=== PATIENT | male | born 1950 | race Caucasian/White ===

== ENCOUNTER 2021-03-25 06:53 | Inpatient (IN) | payer MEDICARE, OTHER ==
[2021-03-25] MEDS ORDERED: NITROGLYCERIN OINT 1 INCH/GM PACKET TOPICAL STA (07:27)
[2021-03-25] MEDS ORDERED: SODIUM CHLORIDE 0.9% 500 ML 500 ML IV STA (07:27)
[2021-03-25] MEDS ORDERED: ASPIRIN 81 MG PO STA (07:27)
[2021-03-25] MEDS ORDERED: NITROGLYCERIN SL TABS 0.4 MG TAB SUBLINGUAL STA (07:27)
[2021-03-25] MEDS ORDERED: SODIUM CHLORIDE 0.9% 500 ML 500 ML IV ONE (07:43)
[2021-03-25 07:45] LABS: Basophils % (A) 0 %; Eosinophils # (A) 0.1 k/uL (0-0.7); Eosinophils % (A) 1 %; HCT 43.9 % (39.0-53.0); Lymphocytes # (A) 1.7 k/uL (1.0-4.8); Lymphocytes % (A) 13 %; MCH 32.1 pg (25.0-35.0); MCHC 34.2 g/dL (31.0-37.0); MCV 93.9 fL (80.0-100.0); Mean Platelet Volume 6.7; Monocytes # (A) 0.6 k/uL (0-1.0); Monocytes % (A) 5 %; Neutrophils # (A) 10.4 k/uL (1.3-7.7); Neutrophils % (A) 81 %; Platelet Count 236 k/uL (150-450); RBC 4.67 m/uL (4.30-5.90); RDW 12.8 % (11.5-15.5); WBC 12.9 k/uL (3.8-10.6)
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
[2021-03-25 07:55] LABS: ALT 27 U/L (4-49); AST 33 U/L (17-59); African American GFR (CKD) >90 (>60 ml/min/1.73 sqM); Albumin 4.2 g/dL (3.5-5.0); Alkaline Phosphatase 70 U/L (38-126); Anion Gap 9 mmol/L; Blood Urea Nitrogen 10 mg/dL (9-20); Calcium 9.6 mg/dL (8.4-10.2); Carbon Dioxide 27 mmol/L (22-30); Chloride 100 mmol/L (98-107); Glucose 133 mg/dL (74-99); Magnesium 1.5 mg/dL (1.6-2.3); Non-African American GFR(CKD) 87 (>60 ml/min/1.73 sqM); Potassium 3.5 mmol/L (3.5-5.1); Sodium 136 mmol/L (137-145); Total Protein 6.9 g/dL (6.3-8.2)
[2021-03-25 07:57] LABS: D-Dimer 0.27 mg/L FEU (<0.60); Partial Thromboplastin Time 24.4 sec (22.0-30.0); Prothrombin Time 10.6 sec (9.0-12.0)
[2021-03-25] MEDS ORDERED: HEPARIN SODIUM 1,000 UN/ML (10ML VL) IV ONE ×2 (08:08→11:52)
[2021-03-25] MEDS ORDERED: HEPARIN SOD,PORK IN 0.45% NACL 25,000 UNIT in 0.45% NACL 1 250ML.BAG IV SCH (08:15)
--- NOTE | 2021-03-25 08:42 | XR ---
EXAMINATION TYPE: XR chest 2V DATE OF EXAM: 03/25/2021 COMPARISON: NONE HISTORY: Chest pain, cough and congestion TECHNIQUE: Frontal and lateral views of the chest are obtained. FINDINGS: There is some minimal blunting of the posterior costophrenic angles. Interstitium is incre ased. Heart size is increased. No evident pneumothorax. There are coronary artery calcifications. IMPRESSION: Correlate for pulmonary venous hypertension and interstitial edema, small pleural effusi ons. Cardiomegaly and coronary artery disease.
[2021-03-25] MEDS ORDERED: FUROSEMIDE 10 MG/ML 2 ML VIAL IV STA (08:47)
[2021-03-25] MEDS ORDERED: NITROGLYCERIN SL TABS 0.4 MG TAB SUBLINGUAL PRN ×2 (09:05→13:06)
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
--- NOTE | 2021-03-25 09:47 | P.PN ---
Progress Note - Text Progress Note Date: 03/25/21 Today, I had a prolonged discussion with the patient and his brother about goals of care and left heart catheterization. Patient was hesitant initially and refused left heart catheterization but then after further discussion with him and answering a lot of his questions he was more agreeable. He said that he would prefer the wrist approach. I told him that the cosmetic consultant will discuss this further with him. We also discussed goals of care and CODE STATUS. I explained to the patient the meaning of cardiac resuscitation. I answered some of his questions. He told me that he would like to be resuscitated but he would never wants to be kept on machines. We agreed to keep his CODE STATUS as a full code at this time. Time spent >16 minutes
[2021-03-25] MEDS: MORPHINE SULFATE 2 MG/ML SYRINGE IVP PRN ×4 (09:59→22:08)
[2021-03-25] MEDS: ATORVASTATIN 80 MG TAB PO SCH (10:00)
[2021-03-25] MEDS: METOPROLOL TARTRATE 25 MG TAB PO SCH ×2 (10:02→20:09)
[2021-03-25] MEDS: NITROGLYCERIN OINT 1 INCH/GM PACKET TOPICAL SCH ×2 (10:21→19:00)
[2021-03-25] MEDS ORDERED: LIDOCAINE 1% INJ 10MG/ML (20 ML MDV) ONE (11:05)
[2021-03-25] MEDS ORDERED: fentaNYL (PF) 50 MCG/ML 2 ML AMP ONE (11:14)
[2021-03-25] MEDS: MIDAZOLAM 2 MG/2 ML VIAL IV ONE ×2 (11:28→12:58)
[2021-03-25] MEDS ORDERED: fentaNYL (PF) 50 MCG/ML 2 ML AMP IV ONE (11:28)
[2021-03-25] MEDS ORDERED: LIDOCAINE 1% INJ 10MG/ML (20 ML MDV) SQ ONE (11:30)
[2021-03-25] MEDS ORDERED: IV FLUID CONTINUATION 500 ML IV ONE (11:36)
[2021-03-25] MEDS ORDERED: HEPARIN SODIUM 1,000 UN/ML (10ML VL) ONE (11:44)
[2021-03-25] MEDS ORDERED: TICAGRELOR 90 MG TAB ONE (11:54)
[2021-03-25] MEDS ORDERED: TICAGRELOR 90 MG TAB PO ONE (11:58)
[2021-03-25] MEDS ORDERED: IOPAMIDOL-370 125ML BTL INJ ONE ×2 (12:12→12:39)
[2021-03-25] MEDS ORDERED: NITROGLYCERIN 1000MCG/10ML SYRINGE INTRACORON ONE (12:17)
[2021-03-25] MEDS ORDERED: FUROSEMIDE 10 MG/ML 4 ML VIAL ONE (12:18)
[2021-03-25] MEDS ORDERED: FUROSEMIDE 10 MG/ML 4 ML VIAL IV ONE (12:20)
--- NOTE | 2021-03-25 12:42 | CONS ---
CONSULTATION HISTORY OF PRESENT ILLNESS: Layton is a 70-year-old gentleman with history of hypertension who presented to hospital complaining of chest pain. He describes it as precordial chest pressure and a burning discomfort that started a few hours prior to coming to hospital. His EKG on his initial presentation showed sinus rhythm with ST-T wave changes suggestive of subendocardial ischemia that improved after sublingual nitroglycerin. His pain was 10/10 intensity and radiated to his left arm was not associated with nausea or diaphoresis. He has history of hypertension and takes lisinopril 40 mg daily and Nifedipine. He is from [place] and is visiting his brother here in [place]. The first set of troponins have come back slightly elevated at 0.1. The patient's clinical presentation is consistent with acute non ST-segment elevation [place]. I advised the patient to undergo cardiac catheterization for further evaluation. Understanding risks, benefits, he wishes to proceed with it. The patient carries a history of valvular heart disease, but opted not to have surgery done for it. PAST MEDICAL HISTORY: Significant for hypertension. MEDICATIONS: Include lisinopril and Procardia ALLERGIES: ALLERGIC TO PENICILLIN. FAMILY HISTORY: Negative for premature coronary artery disease. SOCIAL HISTORY: Negative for current smoking, EtOH abuse, or drug abuse. REVIEW OF SYSTEMS: HEENT is unremarkable. CARDIAC as described above. RESPIRATORY negative. GI negative. DERM negative. ALLERGY/IMMUNOLOGY: Negative. SKIN negative. MUSCULOSKELETAL negative. ENDOCRINE: Negative. CONSTITUTIONAL negative. ONCOLOGICAL negative. HANDBAG OPERATOR: Negative. Rest of the system review is not relevant. PHYSICAL EXAMINATION: Heart rate is 110 beats per minute. Blood pressure 133/87. Respiratory rate is 18. NECK: There is no jugular venous distention. Carotid upstroke is normal. There is no bruit. CHEST exam reveals good air entry bilaterally. HEART exam reveals first and second heart sounds. A pansystolic murmur at the apex. ABDOMEN: Soft. Exam of EXTREMITIES did not reveal any edema. Peripheral pulses are felt. LABS: Show potassium 3.5, creatinine is 0.8. Troponin is elevated at 0.1. BNP is 1650. Hemoglobin is 15, platelet count is 236. ASSESSMENT: 1. Acute non ST-segment elevation myocardial infarction. 2. Mitral regurgitation. 3. History of hypertension. PLAN: I will treat the patient with aspirin, nitrates, beta blockers, GORDO inhibitors. Obtain lipid profiles and start him on statins. I advised the patient to undergo cardiac catheterization to evaluate his coronary anatomy. I will obtain a 2D echo to assess the mitral regurgitation. MALLORY / LUCASN: [id number] /
[2021-03-25] MEDS ORDERED: ATROPINE SULFATE 0.1 MG/ML 10ML SYRINGE IV PRN (13:06)
[2021-03-25] MEDS ORDERED: MAG HYDROX/AL HYDROX/SIMETH 30 ML CUP PO PRN (13:06)
[2021-03-25] MEDS ORDERED: ZOLPIDEM 5 MG TAB PO PRN (13:06)
[2021-03-25] MEDS ORDERED: RX INFO: IV CONTRAST WAS GIVEN 1 EACH MISC MISCELLANE PRN (13:06)
--- NOTE | 2021-03-25 13:06 | P.PRCINT ---
Percutaneous Coronary Int. - Percutaneous Coronary Intervention Percutaneous Coronary Intervention: Procedures performed: Left coronary angiography, PCI of circumflex with overlapping 2.25 x 18 mm, 2.25 x 15 mm Xience and more distal 2.0 x 12mm [place] SHREYAS, Perclose right femoral artery Procedure performed by: Dr Maicol Majano DO Indications: NSTEMI HPI: Patient is a pleasant 70-year-old male with history of hypertension, occasional marijuana use and family history of coronary artery disease who presents secondary to burning sensation of the chest which she attributed to reflux. Pain got worse and went down his left arm and therefore presented to ER where he was noted to have non-STEMI with ST depressions and therefore heart catheterization was performed. Heart catheterization was performed by my partner which showed 30-40% heavily calcified left main, diffuse LAD calcification, 40-50% ostial LAD, mid 50-60% LAD stenosis, diffuse circumflex 50-60% stenosis with a more focal 95% stenosis with extensive [id number] collaterals with a RCA PROCUREMENT CONSULTANT. Discussion had been made with Dr Tam with patient not desiring to undergo bypass and culprit lesion was felt to the circumflex affecting collaterals to the RCA. Therefore recommendation was made to perform PCI of the circumflex. Conscious sedation: Conscious sedation was performed under the direct supervion of myself using Versed and Fentanyl for a total of 50 mins. Description of procedure: The risks, benefits and alternatives of heart rosales terization and PCI were explained in detail to the patient before the procedure and informed consent was obtained. Patient had diagnostic coronary angiography performed by my partner and was left on the catheterization table. Patient had been prepped and draped in the usual fashion and a 6Fr sheath had been placed in the right femoral artery by my partner. A decision was made to intervene on the circumflex. Heparin was given for an ACT greater than 250. A 6Fr CLS 4.0 guide was used to engage the left main. A 0.014 BMW wire was placed in the distal OM1 and a 0.014 whisper wire was placed in the distal circumflex. Next predilation was performed using a 2.5 x 12 mm balloon. A 2.25 x 15 mm Xience SHREYAS stent was then placed in the mid circumflex, a 2.25 x 18mm Xience more proximally with jailing of the OM1 which had no significant ostial disease with only 30% pinching of the OM1 branch and OK 3 flow. Next the mid portion of the stent was post dilated with a 2.5 NC balloon due to continued waste with improvement in waste. There was a more distal 50% stenosis of the circumflex which was covered with a 2.0 x 12mm Jesup balloon with the help of a Guideliner to deliver the stent. Pre intervention there was 95% stenosis and OK 3 flow and post intervention there was <10% residual stenosis and OK 3 flow and no evidence of any dissection. The wire was then removed and final angiograms were obtained. The patient did have some respiratory insufficiency with LVEDP noted to be elevated and therefore Lasix were given and patient was placed on BiPAP with improvement. A right femoral angiogram was performed which showed diffuse heavily calcification however given patient's respiratory insufficiency vascular closure device was performed. A 6-Togolese Perclose was placed with hemostasis achieved. The patient was transferred to the post catheterization holding area in stable condition. Conclusions: 1. Successful PCI of mid circumflex with a overlapping 2.25 x 18 mm, 2.25 x 15 mm Xience and more distal 2.0 x 12mm [place] SHREYAS. 2. Respiratory insufficiency related to pulmonary edema, elevated LVEDP Plan: 1. Aggressive risk factor modifications per most recent ACC/AHA guidelines. 2. Continue dual antiplatelets for 12 months.
[2021-03-25 13:12] LABS: Glucose,Whole Blood 142 mg/dL (75-99)
[2021-03-25] MEDS ORDERED: SODIUM CHLORIDE 0.9% 1,000 ML IV SCH (13:15)
--- NOTE | 2021-03-25 13:17 | CC ---
CARDIAC CATHETERIZATION REPORT INDICATION: Acute non ST-segment elevation OR. PROCEDURE NOTE: After obtaining informed consent, left heart catheterization and coronary angiogram were performed via the right femoral artery using standard Christopher catheters. The patient tolerated the procedure well without any obvious immediate complications. FINDINGS: HEMODYNAMICS: Left ventricular end-diastolic pressure is 18-24 mm. There is no significant gradient across the aortic valve. LEFT VENTRICULOGRAM: Not performed. ANGIOGRAPHIC DATA: LEFT MAIN CORONARY ARTERY: Left main coronary artery appears calcified but seems free of significant stenosis. Divides into left anterior descending coronary artery and circumflex coronary artery. LEFT ANTERIOR DESCENDING CORONARY ARTERY: LAD has a moderate atherosclerotic plaque in its proximal portion. CIRCUMFLEX CORONARY ARTERY: Circumflex coronary artery which is a codominant vessel shows 80-90% stenosis. There are extensive collaterals to the distal RCA. RIGHT CORONARY ARTERY: Right coronary artery was subselectively engaged and appears occluded in its midportion with extensive [id number] collaterals. CONCLUSIONS: 1. Three-vessel coronary artery disease with distal left main stenosis that does not seem significant. 2. Focal critical stenosis involving circumflex coronary artery. The patient's symptoms and the EKG changes may be related to it. Angiographic data was reviewed by Dr. Majano the on-call panel laminator who will proceed with angioplasty of circumflex coronary artery and he may have an FFR of the LAD and the left main to rule out significant disease. The patient, however, does not want to go through bypass surgery, has significant underlying mitral regurgitation which he opted not to undergo surgery for. MMODL / IJN: [id number] /
[2021-03-25] MEDS: LORazepam 2 MG/ML INJ IV PRN ×2 (13:50→20:09)
[2021-03-25] MEDS ORDERED: FUROSEMIDE 10 MG/ML 4 ML VIAL IV STA (19:31)
[2021-03-25] MEDS: TICAGRELOR 90 MG TAB PO SCH (20:09)
[2021-03-25] MEDS ORDERED: Magnesium Replacement Protocol 1 EACH MISC MISCELLANE PRN (22:37)
[2021-03-25] MEDS: MAGNESIUM SULFATE-D5W PMX 1 GM in DEXTROSE/WATER 1 100ML.BAG IVPB SCH ×2 (22:41→23:44)
[2021-03-26] MEDS: NITROGLYCERIN OINT 1 INCH/GM PACKET TOPICAL SCH ×2 (00:27→05:58)
[2021-03-26 03:42] LABS: Basophils % (A) 0 %; Eosinophils # (A) 0.1 k/uL (0-0.7); Eosinophils % (A) 0 %; HCT 45.5 % (39.0-53.0); Lymphocytes # (A) 0.8 k/uL (1.0-4.8); Lymphocytes % (A) 5 %; MCH 31.3 pg (25.0-35.0); MCHC 33.1 g/dL (31.0-37.0); MCV 94.6 fL (80.0-100.0); Mean Platelet Volume 6.7; Monocytes # (A) 0.9 k/uL (0-1.0); Monocytes % (A) 6 %; Neutrophils # (A) 14.1 k/uL (1.3-7.7); Neutrophils % (A) 88 %; Platelet Count 209 k/uL (150-450); RBC 4.81 m/uL (4.30-5.90); RDW 13.4 % (11.5-15.5); WBC 16.1 k/uL (3.8-10.6)
[2021-03-26 04:12] LABS: African American GFR (CKD) >90 (>60 ml/min/1.73 sqM); Anion Gap 10 mmol/L; Blood Urea Nitrogen 13 mg/dL (9-20); Calcium 8.9 mg/dL (8.4-10.2); Carbon Dioxide 25 mmol/L (22-30); Chloride 103 mmol/L (98-107); Glucose 151 mg/dL (74-99); Magnesium 2.7 mg/dL (1.6-2.3); Non-African American GFR(CKD) 89 (>60 ml/min/1.73 sqM); Potassium 3.2 mmol/L (3.5-5.1); Sodium 138 mmol/L (137-145)
[2021-03-26] MEDS ORDERED: Potassium Replacement Protocol 1 EACH MISC MISCELLANE PRN (04:43)
[2021-03-26] MEDS: POTASSIUM CHLORIDE 10 MEQ in WATER FOR INJECTION 1 100ML.BAG IVPB SCH ×4 (05:11→09:55)
[2021-03-26] MEDS: MORPHINE SULFATE 2 MG/ML SYRINGE IVP PRN ×5 (05:54→23:09)
[2021-03-26] MEDS ORDERED: diazePAM 5 MG TAB PO PRN (06:49)
[2021-03-26] MEDS: ATORVASTATIN 80 MG TAB PO SCH (08:40)
[2021-03-26] MEDS: ASPIRIN 81 MG PO SCH (08:40)
[2021-03-26] MEDS: TICAGRELOR 90 MG TAB PO SCH ×2 (08:40→21:00)
[2021-03-26] MEDS ORDERED: ASPIRIN 325 MG TAB PO SCH (09:00)
[2021-03-26] MEDS: diazePAM 5 MG TAB PO SCH ×2 (09:25→20:59)
--- NOTE | 2021-03-26 09:26 | P.PN ---
Subjective Progress Note Date: 03/26/21 Patient was seen, evaluated, and examined by me this morning. He was on BiPAP with FiO2 of 40% and 12/6 pressures. The patient reported feeling well. He denies any shortness of breath. Nursing staff informed me that since last night there was multiple attempts to take the patient off of BiPAP that his heart rate was dropping to significant bradycardia down to the 20s then quickly recover back to normal range when BiPAP is put back on. Patient himself is feeling fairly well today. He denies any chest pain. He underwent successful stent placement yesterday. Objective - Vital Signs Vital signs: Vital Signs Temp 97 F L 03/26/21 04:00 Pulse 84 03/26/21 07:00 Resp 21 03/26/21 07:00 BP 93/61 03/26/21 07:00 Pulse Ox 95 03/26/21 07:00 Intake & Output 03/25/21 03/26/21 03/26/21 18:59 06:59 18:59 Intake Total 540 440 20 Output Total 1700 800 0 Balance -1160 -360 20 Weight 74.843 kg 81.1 kg Intake: IV 540 440 20 Magnesium Sulfate-D5w Pmx 200 1 gm In Dextrose/Water 1 100ml.bag @ 100 mls/hr IVPB Q1H [facility] Rx#: [id number] Sodium Chloride 0.9% 1, 40 240 20 000 ml @ 20 mls/hr IV . Q24H [facility] Rx#:[id number] Output: Urine 1700 800 0 Other: Voiding Method Urinal Urinal - Exam General: The patient is awake and alert, in no distress Eye: there is normal conjunctiva bilaterally. Neck: The neck is supple, there is no JVD. Cardiovascular: Normal S1-S2, no S3-S4, no murmurs. Respiratory: Lungs clear to auscultation bilaterally Gastrointestinal: Abdomen is soft, nontender Musculoskeletal: There is no pedal edema. Neurological:. Speech is normal. Skin: Skin is warm and dry - Labs CBC & Chem 7: 03/26/21 03:11 03/26/21 03:11 Labs: Abnormal Lab Results - Last 24 Hours (Table) 03/25/21 03/25/21 03/25/21 Range/Units 10:54 13:11 13:53 WBC (3.8-10.6) k/uL Neutrophils # (1.3-7.7) k/uL Lymphocytes # (1.0-4.8) k/uL Potassium (3.5-5.1) mmol/L Glucose (74-99) mg/dL POC Glucose (mg/dL) 142 H (75-99) mg/dL Magnesium (1.6-2.3) mg/dL Troponin I 0.335 H* 0.676 H* (0.000-0.034) ng/mL 03/25/21 03/26/21 03/26/21 Range/Units 20:16 03:11 03:11 WBC 16.1 H (3.8-10.6) k/uL Neutrophils # 14.1 H (1.3-7.7) k/uL Lymphocytes # 0.8 L (1.0-4.8) k/uL Potassium 3.2 L (3.5-5.1) mmol/L Glucose 151 H (74-99) mg/dL POC Glucose (mg/dL) (75-99) mg/dL Magnesium 2.7 H (1.6-2.3) mg/dL Troponin I 3.830 H* (0.000-0.034) ng/mL Assessment and Plan Assessment: This is a 70-year-old male with past medical history noted below who presented to the emergency room with worsening chest pain. Patient was evaluated in the ER and admitted to the hospital for further management of his medical problems noted below. 1. Non-ST elevation IL: Status post successful PCI with drug-eluting stent placement of mid circumflex. Continue dual antiplatelet therapy. 2. Acute congestive heart failure exacerbation with elevated BNP and evidence of pulmonary edema. Given one-time dose of Lasix in the ER. Echocardiogram ordered. Continue Lasix 20 mg IV twice daily 3. Acute hypoxic respiratory failure requiring BiPAP post left heart catheterization. Secondary to above 4. Three-vessel coronary artery disease, this was discussed with patient by cardiology. He is not interested in pursuing CABG evaluation. He underwent successful stent placement to mid circumflex 5. Essential hypertension, blood pressure within acceptable range. We will continue to monitor for now. Hold home dose of lisinopril and nifedipine for now 6. Hyperlipidemia, started on Lipitor awaiting fasting lipid profile 7. CODE STATUS: Patient is full code Today, I took the patient off of BiPAP this morning and his heart rate remained stable on the monitor between 60s and 80s. Patient appears comfortable. He chest x-ray ordered. Continue diuresis. Order bladder scan to check postvoid residual. Continue ICU monitoring. Appreciate learning consultant's recommendations. Repeat lab work in the morning.
[2021-03-26 10:45] VITALS: BMI 26.4
[2021-03-26 11:27] LABS: Chol/HDL Ratio 5.07; LDL Cholesterol,Calculated 142.6 mg/dL (0.0-131.0); VLDL Calculation 36.4 mg/dL (5.00-40.00)
--- NOTE | 2021-03-26 11:44 | P.PN ---
Subjective This is a 70-year-old male with history of hypertension. He does not follow with a decorator consultant. He is visiting his brother, he is from [place]. He presented emergency department on 03/25/2021 with complaints of chest pain. EKG on admission revealed sinus rhythm with ST depressions. He underwent cardiac catheterization with Dr. Tam on 03/25 which revealed 30-40% heavily calcified left main, diffuse LAD calcification, 40-50% ostial LAD, mid diffuse 60% LAD stenosis, diffuse circumflex 50-60% stenosis and more focal 95% stenosis with extensive xwmb-oa-lnchh collaterals with the RCA SQUAD LEADER. Patient underwent PCI x 3 of mid circumflex by Dr. Majano. Patient also had some respiratory insufficiency with LVEDP noted to be elevated, IV lasix was given, patient was placed on BIPAP with improvement. 03/26/2021: Patient seen and examined at bedside, no acute distress. Blood pressure 92/56, heart rate 69, afebrile, maintaining oxygen saturations 96% on 5 L nasal cannula. Patient was on BiPAP, having difficulty weaning due to bradycardia HR down to the 20-30s when BIPAP removed overnight, he recovered when BIPAP was placed back on. Patient is currently off BIPAP this morning, HR are in the 70s- 80s sinus mechanism. Patient currently maintained on aspirin 81 mg daily, atorvastatin 80 mg daily, Lasix 20 mg twice a day, Brilinta 90 mg twice a day. Laboratory data reviewed. WBC 16.1, hemoglobin 15, platelets 29, sodium 138, potassium 3.2, BUN 13, serum creatinine 0.8, magnesium 2.7, triglycerides 22, cholesterol 223, LDL 142, HDL 44 GENERAL: Well-appearing, well-nourished and in no acute distress. NECK: Supple, mild JVD LUNGS: Breath sounds clear to auscultation bilaterally. Respiration equal and unlabored. No wheezes, rales or rhonchi. HEART: Regular rate and rhythm without murmurs, rubs or gallops. S1 and S2 heard. EXTREMITIES: Normal range of motion. Trace bilateral edema. No clubbing or cyanosis. Peripheral pulses intact. Right femoral cath site clean dry intact, no hematoma, 2+ peripheral pulses ASSESSMENT: NSTEMI s/p PCI circumflex History of hypertension- currently hypotensive Dyslipidemia Elevated LVEDP Acute hypoxic respiratory failure requiring BiPAP post left heart catheterization PLAN: Echocardiogram ordered will follow up on results Continue dual antiplatelet therapy. Home Lisinopril and Nifedipine on hold due to hypotension Continue statin Further recommendations based on clinical course Objective - Vital Signs Vital signs: Vital Signs Temp 97 F L 03/26/21 04:00 Pulse 69 03/26/21 10:00 Resp 18 03/26/21 10:00 BP 92/56 03/26/21 10:00 Pulse Ox 96 03/26/21 10:00 Intake & Output 03/25/21 03/26/21 03/26/21 18:59 06:59 18:59 Intake Total 540 440 20 Output Total 1700 800 0 Balance -1160 -360 20 Weight 74.843 kg 81.1 kg 81.1 kg Intake: IV 540 440 20 Magnesium Sulfate-D5w Pmx 200 1 gm In Dextrose/Water 1 100ml.bag @ 100 mls/hr IVPB Q1H [facility] Rx#: [id number] Sodium Chloride 0.9% 1, 40 240 20 000 ml @ 20 mls/hr IV . Q24H [facility] Rx#:[id number] Output: Urine 1700 800 0 Other: Voiding Method Urinal Urinal - Labs CBC & Chem 7: 03/26/21 03:11 03/26/21 03:11 Labs: Abnormal Lab Results - Last 24 Hours (Table) 03/25/21 03/25/21 03/25/21 Range/Units 10:54 13:11 13:53 WBC (3.8-10.6) k/uL Neutrophils # (1.3-7.7) k/uL Lymphocytes # (1.0-4.8) k/uL Potassium (3.5-5.1) mmol/L Glucose (74-99) mg/dL POC Glucose (mg/dL) 142 H (75-99) mg/dL Magnesium (1.6-2.3) mg/dL Troponin I 0.335 H* 0.676 H* (0.000-0.034) ng/mL Triglycerides (0.0-149.0) mg/dL Cholesterol (0-200) mg/dL LDL Cholesterol, Calc (0.0-131.0) mg/dL 03/25/21 03/26/21 03/26/21 Range/Units 20:16 03:11 03:11 WBC (3.8-10.6) k/uL Neutrophils # (1.3-7.7) k/uL Lymphocytes # (1.0-4.8) k/uL Potassium 3.2 L (3.5-5.1) mmol/L Glucose 151 H (74-99) mg/dL POC Glucose (mg/dL) (75-99) mg/dL Magnesium 2.7 H (1.6-2.3) mg/dL Troponin I 3.830 H* (0.000-0.034) ng/mL Triglycerides 182.0 H (0.0-149.0) mg/dL Cholesterol 223 H (0-200) mg/dL LDL Cholesterol, Calc 142.6 H (0.0-131.0) mg/dL 03/26/21 Range/Units 03:11 WBC 16.1 H (3.8-10.6) k/uL Neutrophils # 14.1 H (1.3-7.7) k/uL Lymphocytes # 0.8 L (1.0-4.8) k/uL Potassium (3.5-5.1) mmol/L Glucose (74-99) mg/dL POC Glucose (mg/dL) (75-99) mg/dL Magnesium (1.6-2.3) mg/dL Troponin I (0.000-0.034) ng/mL Triglycerides (0.0-149.0) mg/dL Cholesterol (0-200) mg/dL LDL Cholesterol, Calc (0.0-131.0) mg/dL
--- NOTE | 2021-03-26 12:44 | XR ---
EXAMINATION TYPE: XR chest 1V portable DATE OF EXAM: 03/26/2021 CLINICAL HISTORY: chf. TECHNIQUE: Portable frontal view of the chest. The left costophrenic angle is not included on imagin g. COMPARISON: 03/25/2021 FINDINGS: The cardiomediastinal silhouette is within normal limits for size. Pulmonary vasculature i s mildly centrally prominent, although decreased versus 03/25/2021. Perihilar haziness decreased versu s 03/25/2021. No pleural effusion of the visualized right costophrenic angle. No pneumothorax seen. N o acute displaced osseous fracture. IMPRESSION: Improved aeration of the bilateral lungs versus 03/25/2021, with mild persistent pulmonary vascular co ngestion and interstitial edema.
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
--- NOTE | 2021-03-26 18:13 | ECHOF ---
Referral Reason:NSTEMI MEASUREMENTS -------- HEIGHT: 175.3 cm WEIGHT: 80.7 kg BP: 93/61 IVSd: 0.9 cm (0.6 - 1.1) LVIDd: 5.3 cm (3.9 - 5.3) LVPWd: 1.0 cm (0.6 - 1.1) EDV(Teich): 136 ml IVSs: 1.7 cm LVIDs: 3.6 cm LVPWs: 1.7 cm %IVS Thck: 82 % ESV(Teich): 54 ml EF(Teich): 61 % %FS: 33 % SV(Teich): 82 ml LA Diam: 3.4 cm (2.7 - 3.8) RVIDd: 3.6 cm (< 3.3) IVC: 18.69 mm LALs A4C: 5.6 cm LAAs A4C: 16.5 cm LAESV A-L A4C: 41 ml LAESV MOD A4C: 39 ml LALs A2C: 6.3 cm LAAs A2C: 17.7 cm LAESV A-L A2C: 42 ml LAESV MOD A2C: 41 ml LAESV(A-L): 44 ml LAESV Index (A-L): 22.38 ml/m Ao Diam: 3.1 cm (2.0 - 3.7) AV Cusp: 2.1 cm (1.5 - 2.6) EPSS: 0.2 cm MV E Vinod: 1.24 m/s MV DecT: 162 ms MV Dec [place]: 7.6 m/s MV A Vinod: 0.64 m/s MV E/A Ratio: 1.94 MV PHT: 47 ms TR Vmax: 3.35 m/s TR maxP.83 mmHg RAP: 5.00 mmHg RVSP: 49.83 mmHg MV EF SLOPE: 65.62 mm/s (70 - 150) MV EXCURSION: 17.01 mm (> 18.000) FINDINGS -------- Sinus rhythm. This was a technically adequate study. The left ventricular size is normal. Left ventricular wall thickness is normal. Overall left vent ricular systolic function is normal with, an EF between 60 - 65 %. The right ventricle is mildly enlarged. Normal LA size by volume 22+/-6 ml/m2. The right atrium is normal in size. Interatrial and interventricular septum intact. There is mild aortic valve sclerosis. Mild mitral annular calcification present. Mild mitral regurgitation is present , predominately an anteriorly directed jet. Mild thickening of the anterior mitral valve leaflet. There is mild thic kening of the posterior mitral valve leaflet. Mild prolapse of the posterior mitral valve leaflet. Mild tricuspid regurgitation present. There is moderate pulmonary hypertension. The right ventric ular systolic pressure, as measured by Doppler, is 49.83mmHg. The pulmonic valve was not well visualized. The aortic root size is normal. Normal inferior vena cava with normal inspiratory collapse consistent with estimated right atrial pre ssure of 5 mmHg. There is no pericardial effusion. CONCLUSIONS -------- 1. The left ventricular size is normal. 2. Left ventricular wall thickness is normal. 3. Overall left ventricular systolic function is normal with, an EF between 60 - 65 %. 4. The right ventricle is mildly enlarged. 5. There is mild aortic valve sclerosis. 6. Mild mitral annular calcification present. 7. Mild mitral regurgitation is present. 8. , predominately an anteriorly directed jet. 9. Mild thickening of the anterior mitral valve leaflet. 10. There is mild thickening of the posterior mitral valve leaflet. 11. Mild prolapse of the posterior mitral valve leaflet. 12. Mild tricuspid regurgitation present. 13. There is moderate pulmonary hypertension. 14. The right ventricular systolic pressure, as measured by Doppler, is 49.83mmHg. 15. There is no pericardial effusion. [employer]: Francie Heredia, INDER[employer]
[2021-03-26] MEDS: FUROSEMIDE 10 MG/ML 2 ML VIAL IV SCH (20:59)
[2021-03-27 04:02] LABS: Basophils % (A) 0 %; Eosinophils # (A) 0.2 k/uL (0-0.7); Eosinophils % (A) 1 %; HCT 39.8 % (39.0-53.0); HGB 13.6 gm/dL (13.0-17.5); Lymphocytes # (A) 0.6 k/uL (1.0-4.8); Lymphocytes % (A) 4 %; MCH 32.3 pg (25.0-35.0); MCHC 34.1 g/dL (31.0-37.0); MCV 94.7 fL (80.0-100.0); Mean Platelet Volume 7.1; Monocytes # (A) 0.8 k/uL (0-1.0); Monocytes % (A) 6 %; Neutrophils # (A) 13.2 k/uL (1.3-7.7); Neutrophils % (A) 88 %; Platelet Count 173 k/uL (150-450); RDW 12.8 % (11.5-15.5); WBC 14.9 k/uL (3.8-10.6)
[2021-03-27 04:18] LABS: African American GFR (CKD) >90 (>60 ml/min/1.73 sqM); Anion Gap 12 mmol/L; Blood Urea Nitrogen 16 mg/dL (9-20); Calcium 8.2 mg/dL (8.4-10.2); Carbon Dioxide 21 mmol/L (22-30); Chloride 102 mmol/L (98-107); Glucose 129 mg/dL (74-99); Non-African American GFR(CKD) >90 (>60 ml/min/1.73 sqM); Potassium 3.3 mmol/L (3.5-5.1); Sodium 135 mmol/L (137-145)
[2021-03-27] MEDS: MORPHINE SULFATE 2 MG/ML SYRINGE IVP PRN ×3 (04:19→15:09)
[2021-03-27] MEDS ORDERED: Potassium Replacement Protocol 1 EACH MISC MISCELLANE PRN (04:52)
[2021-03-27] MEDS: POTASSIUM CHLORIDE ER 20 MEQ TAB.ER PO SCH ×2 (05:06→08:34)
[2021-03-27] MEDS: ASPIRIN 81 MG PO SCH (08:31)
[2021-03-27] MEDS: ATORVASTATIN 80 MG TAB PO SCH (08:31)
[2021-03-27] MEDS: TICAGRELOR 90 MG TAB PO SCH ×2 (08:32→20:08)
[2021-03-27] MEDS: diazePAM 5 MG TAB PO SCH ×2 (08:32→21:03)
[2021-03-27] MEDS: FUROSEMIDE 10 MG/ML 2 ML VIAL IV SCH (08:32)
[2021-03-27] MEDS: METOPROLOL SUCCINATE (ER) 25 MG TAB.ER.24H PO SCH (08:34)
[2021-03-27] MEDS ORDERED: FUROSEMIDE 10 MG/ML 2 ML VIAL IV ONE (09:30)
--- NOTE | 2021-03-27 11:50 | P.PN ---
Subjective This is a 70-year-old male with history of hypertension. He does not follow with a casino runner. He is visiting his brother, he is from [place]. He presented emergency department on 03/25/2021 with complaints of chest pain. EKG on admission revealed sinus rhythm with ST depressions. He underwent cardiac catheterization with Dr. Tam on 03/25 which revealed 30-40% heavily calcified left main, diffuse LAD calcification, 40-50% ostial LAD, mid diffuse 60% LAD stenosis, diffuse circumflex 50-60% stenosis and more focal 95% stenosis with extensive odhp-al-wcpaw collaterals with the RCA AS400 PROGRAMMER. Patient underwent PCI x 3 of mid circumflex by Dr. Majano. Patient also had some respiratory insufficiency with LVEDP noted to be elevated, IV lasix was given, patient was placed on BIPAP with improvement. 03/26/2021: Blood pressure 92/56, heart rate 69, afebrile, maintaining oxygen saturations 96% on 5 L nasal cannula. Patient was on BiPAP, having difficulty weaning due to bradycardia HR down to the 20-30s when BIPAP removed overnight, he recovered when BIPAP was placed back on. Patient is currently off BIPAP this morning, HR are in the 70s-80s sinus mechanism. Echocardiogram revealed EF of 66-65%, RV is mildly enlarged, mild aortic valve sclerosis, mild mitral regurgitation, mild prolapse of the posterior mitral valve leaflet, mild tricuspid regurgitation, moderate pulmonary hypertension with an RVSP 49 mmHg. 03/27/21: Patient seen and examined at bedside, no acute distress. He continues to have shortness of breath, requiring oxygen, able to wean patient to 3L nasal cannula. He cannot tolerate a BIPAP overnight while sleeping. He states he does wake up short of breath overnight. Telemetry reviewed, patient is in sinus mechanism HR 60-120s. He is tachycardic this morning. Blood pressure 139/71, heart rate 110, afebrile. Patient currently maintained on aspirin 81 mg daily, atorvastatin 80 mg daily, IV Lasix 20 mg twice a day, Brilinta 90 mg twice a day. Laboratory data reviewed. WBC 14.9, hemoglobin 13.6, platelets 173, sodium 135, potassium 3.3, BUN 16, serum creatinine 0.75 GENERAL: Appears short of breath, feels as if he needs to catch his breath. NECK: Supple, mild JVD LUNGS: Breath sounds diminished to auscultation bilaterally, mild crackles in bases. Respiration equal and unlabored. No wheezes, rales or rhonchi. HEART: Regular rate and rhythm, Systolic murmur heard at right sternal border and at apex, S1 and S2 heard. EXTREMITIES: Normal range of motion. Trace bilateral edema. No clubbing or cyanosis. Peripheral pulses intact. Right femoral cath site clean dry intact, no hematoma, 2+ peripheral pulses ASSESSMENT: NSTEMI s/p PCI circumflex on 03/25/2021 History of hypertension- currently hypotensive Dyslipidemia Elevated LVEDP Acute hypoxic respiratory failure requiring BiPAP post left heart catheterization Pulmonary Hypertension Hypokalemia PLAN: Will start metoprolol succinate 25mg daily Continue dual antiplatelet therapy with aspirin and Brilinta Home Lisinopril and Nifedipine on hold due to hypotension- Patient's blood pressure improving, will restart Lisinopril at lower dose. Continue statin Potassium being replaced this morning Continue to monitor renal function and electrolytes From a cardiology perspective, patient can be transferred to Further recommendations based on clinical course Objective - Vital Signs Vital signs: Vital Signs Temp 98.2 F 03/26/21 20:00 Pulse 117 H 03/27/21 06:00 Resp 24 03/27/21 06:00 BP 113/74 03/27/21 06:00 Pulse Ox 94 L 03/27/21 06:00 Intake & Output 03/26/21 03/27/21 03/27/21 18:59 06:59 18:59 Intake Total 740 240 Output Total 263 665 Balance 477 -425 Weight 81.1 kg 76.6 kg Intake: IV 340 240 .09 220 Potassium Chloride 10 meq 200 In Water For Injection 1 100ml.bag @ 100 mls/hr IVPB Q1HR [facility] Rx#: [id number] Sodium Chloride 0.9% 1, 140 20 000 ml @ 20 mls/hr IV . Q24H [facility] Rx#:[id number] Oral 400 Output: Urine 175 665 Post Void Residual 88 Other: Voiding Method Urinal External Catheter - Labs CBC & Chem 7: 03/27/21 03:46 03/27/21 03:46 Labs: Abnormal Lab Results - Last 24 Hours (Table) 03/26/21 03/27/21 03/27/21 Range/Units 03:11 03:46 03:46 WBC 14.9 H (3.8-10.6) k/uL RBC 4.20 L (4.30-5.90) m/uL Neutrophils # 13.2 H (1.3-7.7) k/uL Lymphocytes # 0.6 L (1.0-4.8) k/uL Sodium 135 L (137-145) mmol/L Potassium 3.3 L (3.5-5.1) mmol/L Carbon Dioxide 21 L (22-30) mmol/L Glucose 129 H (74-99) mg/dL Calcium 8.2 L (8.4-10.2) mg/dL Triglycerides 182.0 H (0.0-149.0) mg/dL Cholesterol 223 H (0-200) mg/dL LDL Cholesterol, Calc 142.6 H (0.0-131.0) mg/dL
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
[2021-03-27] MEDS: lisinopriL 10 MG TAB PO SCH (13:08)
--- NOTE | 2021-03-27 13:17 | P.PN ---
Subjective Progress Note Date: 03/27/21 Patient was seen and evaluated by me this morning. He reports significant anxiety about being in the hospital and also reports feeling weak. He was unable to sit in the chair for to long today. His home dose of Valium was restarted. Patient reports he has been taking Valium 10 mg twice daily for the past 40 years. No acute events overnight reported by nursing staff. Objective - Vital Signs Vital signs: Vital Signs Temp 98.0 F 03/27/21 09:00 Pulse 110 H 03/27/21 11:00 Resp 10 L 03/27/21 11:00 BP 139/71 03/27/21 11:00 Pulse Ox 94 L 03/27/21 11:00 Intake & Output 03/26/21 03/27/21 03/27/21 18:59 06:59 18:59 Intake Total 740 240 280 Output Total 263 665 530 Balance 758 -450 -539 Weight 81.1 kg 76.6 kg Intake: IV 340 240 80 .09 220 80 Potassium Chloride 10 meq 200 In Water For Injection 1 100ml.bag @ 100 mls/hr IVPB Q1HR [facility] Rx#: [id number] Sodium Chloride 0.9% 1, 140 20 000 ml @ 20 mls/hr IV . Q24H [facility] Rx#:[id number] Oral 400 200 Output: Urine 175 665 530 Post Void Residual 88 Other: Voiding Method Urinal External Catheter - Exam General: The patient is awake and alert, in no distress Eye: there is normal conjunctiva bilaterally. Neck: The neck is supple, there is no JVD. Cardiovascular: Normal S1-S2, no S3-S4, no murmurs. Respiratory: Lungs clear to auscultation bilaterally Gastrointestinal: Abdomen is soft, nontender Musculoskeletal: There is no pedal edema. Neurological:. Speech is normal. Skin: Skin is warm and dry - Labs CBC & Chem 7: 03/27/21 03:46 03/27/21 03:46 Labs: Abnormal Lab Results - Last 24 Hours (Table) 03/27/21 03/27/21 Range/Units 03:46 03:46 WBC 14.9 H (3.8-10.6) k/uL RBC 4.20 L (4.30-5.90) m/uL Neutrophils # 13.2 H (1.3-7.7) k/uL Lymphocytes # 0.6 L (1.0-4.8) k/uL Sodium 135 L (137-145) mmol/L Potassium 3.3 L (3.5-5.1) mmol/L Carbon Dioxide 21 L (22-30) mmol/L Glucose 129 H (74-99) mg/dL Calcium 8.2 L (8.4-10.2) mg/dL Assessment and Plan Assessment: This is a 70-year-old male with past medical history noted below who presented to the emergency room with worsening chest pain. Patient was evaluated in the ER and admitted to the hospital for further management of his medical problems noted below. 1. Non-ST elevation [place]: Status post successful PCI with drug-eluting stent placement of mid circumflex. Continue dual antiplatelet therapy. 2. Acute diastolic congestive heart failure exacerbation with elevated BNP and evidence of pulmonary edema. Echocardiogram showed ejection fraction of 60-65%. Mild mitral valve disease with mild regurgitation noted. Started on Lasix with good response. We will monitor urine output closely. 3. Acute hypoxic respiratory failure requiring BiPAP post left heart catheterization. Secondary to above 4. Three-vessel coronary artery disease, this was discussed with patient by cardiology. He is not interested in pursuing CABG evaluation. He underwent successful stent placement to mid circumflex 5. Essential hypertension, blood pressure within acceptable range. We will continue to monitor for now. 6. Hyperlipidemia, started on Lipitor awaiting fasting lipid profile 7. CODE STATUS: Patient is full code Today, I reviewed his medication list and lab work results. Continue current regimen. Transfer out of the ICU to cardiac stepdown. Encouraged patient to sit in the chair.
[2021-03-27] MEDS: BENZOCAINE/MENTHOL LOZENG 1 EACH LOZENGE MUCOUS MEM PRN (17:21)
[2021-03-27] MEDS ORDERED: LORazepam 2 MG/ML INJ IV PRN (17:36)
[2021-03-27] MEDS ORDERED: THIAMINE 100 MG/ML 2 ML VIAL IM STA (17:36)
[2021-03-27] MEDS: LORazepam 2 MG/ML INJ IV PRN ×2 (18:15→20:08)
[2021-03-27] MEDS: FUROSEMIDE 10 MG/ML 4 ML VIAL IV SCH (20:07)
[2021-03-27] MEDS: POTASSIUM CHLORIDE 10 MEQ in WATER FOR INJECTION 1 100ML.BAG IVPB SCH (23:12)
[2021-03-28] MEDS: POTASSIUM CHLORIDE 10 MEQ in WATER FOR INJECTION 1 100ML.BAG IVPB SCH ×3 (00:54→04:56)
[2021-03-28] MEDS: LORazepam 2 MG/ML INJ IV PRN ×3 (00:54→16:34)
[2021-03-28] MEDS: THIAMINE 100 MG TAB PO SCH ×2 (06:38→16:33)
[2021-03-28 07:29] LABS: Basophils % (A) 0 %; Eosinophils # (A) 0.1 k/uL (0-0.7); Eosinophils % (A) 0 %; HCT 39.2 % (39.0-53.0); HGB 13.1 gm/dL (13.0-17.5); Lymphocytes # (A) 0.6 k/uL (1.0-4.8); Lymphocytes % (A) 3 %; MCH 32.2 pg (25.0-35.0); MCHC 33.5 g/dL (31.0-37.0); MCV 96.1 fL (80.0-100.0); Mean Platelet Volume 7.3; Monocytes # (A) 0.8 k/uL (0-1.0); Monocytes % (A) 5 %; Neutrophils # (A) 15.3 k/uL (1.3-7.7); Neutrophils % (A) 91 %; Platelet Count 217 k/uL (150-450); RBC 4.07 m/uL (4.30-5.90); RDW 12.8 % (11.5-15.5); WBC 16.8 k/uL (3.8-10.6)
[2021-03-28 07:53] LABS: African American GFR (CKD) >90 (>60 ml/min/1.73 sqM); Anion Gap 11 mmol/L; Blood Urea Nitrogen 20 mg/dL (9-20); Calcium 8.7 mg/dL (8.4-10.2); Carbon Dioxide 26 mmol/L (22-30); Chloride 100 mmol/L (98-107); Glucose 140 mg/dL (74-99); Magnesium 2.4 mg/dL (1.6-2.3); Non-African American GFR(CKD) 90 (>60 ml/min/1.73 sqM); Potassium 3.2 mmol/L (3.5-5.1); Sodium 137 mmol/L (137-145)
[2021-03-28] MEDS: ASPIRIN 81 MG PO SCH (08:03)
[2021-03-28] MEDS: lisinopriL 10 MG TAB PO SCH (08:03)
[2021-03-28] MEDS: METOPROLOL SUCCINATE (ER) 25 MG TAB.ER.24H PO SCH (08:03)
[2021-03-28] MEDS: MULTIVITAMINS, THERA 1 EACH TAB PO SCH (08:03)
[2021-03-28] MEDS: diazePAM 5 MG TAB PO SCH ×2 (08:03→20:22)
[2021-03-28] MEDS: ATORVASTATIN 80 MG TAB PO SCH (08:03)
[2021-03-28] MEDS: TICAGRELOR 90 MG TAB PO SCH ×2 (08:03→20:22)
[2021-03-28] MEDS: FUROSEMIDE 10 MG/ML 4 ML VIAL IV SCH ×2 (08:03→16:33)
[2021-03-28] MEDS ORDERED: METOPROLOL SUCCINATE (ER) 25 MG TAB.ER.24H PO STA (08:10)
[2021-03-28] MEDS ORDERED: Potassium Replacement Protocol 1 EACH MISC MISCELLANE PRN (08:29)
[2021-03-28] MEDS: POTASSIUM BICARBONATE/CIT AC 20 MEQ TABLET.EFF NG-TUBE SCH ×4 (08:36→21:18)
--- NOTE | 2021-03-28 10:48 | P.PN ---
Subjective This is a 70-year-old male with history of hypertension. He does not follow with a assistant real estate manager. He is visiting his brother, he is from [place]. He presented emergency department on 03/25/2021 with complaints of chest pain. EKG on admission revealed sinus rhythm with ST depressions. He underwent cardiac catheterization with Dr. 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 Patient underwent PCI x 3 of mid circumflex by Dr. Majano. Patient also had some respiratory insufficiency with LVEDP noted to be elevated, IV lasix was given, patient was placed on BIPAP with improvement. 03/26/2021: Blood pressure 92/56, heart rate 69, afebrile, maintaining oxygen saturations 96% on 5 L nasal cannula. Patient was on BiPAP, having difficulty weaning due to bradycardia HR down to the 20-30s when BIPAP removed overnight, he recovered when BIPAP was placed back on. Patient is currently off BIPAP this morning, HR are in the 70s-80s sinus mechanism. Echocardiogram revealed EF of 66-65%, RV is mildly enlarged, mild aortic valve sclerosis, mild mitral regurgitation, mild prolapse of the posterior mitral valve leaflet, mild tricuspid regurgitation, moderate pulmonary hypertension with an RVSP 49 mmHg. 03/27/21: He continues to have shortness of breath, requiring oxygen, able to wean patient to 3L nasal cannula. He cannot tolerate a BIPAP overnight while sleeping. He states he does wake up short of breath overnight. Telemetry reviewed, patient is in sinus mechanism HR 60-120s. He is tachycardic this morning, and goes into right bundle branch block with elevated heart rate. Patient started on metoprolol succinate 25mg daily 03/28/2021: Patient seen and examined in the ICU. He continues to be short of breath, labored breathing. He is having increased diarrhea. Blood pressure 115/68, HR 105, afebrile, on 10L high flow nasal cannula. Telemetry reviewed, patient in sinus mechanism HR 70s, occasionally is tachycardic to 110s. Patient currently maintained on aspirin 81 mg daily, atorvastatin 80 mg daily, IV Lasix 40mg Q8hr , Brilinta 90 mg twice a day, lisinopril 10mg daily,metoprolol succinate 25mg daily. Laboratory data reviewed, WBC 16.8, hemoglobin 13.1, platelets 217, sodium 137, potassium 3.2, BUN 20, serum creatinine 0.8, magnesium 2.4 GENERAL: Appears short of breath, feels as if he needs to catch his breath. Labored breathing. Just walked to go to the bathroom NECK: Supple, mild JVD LUNGS: Breath sounds diminished to auscultation bilaterally, mild crackles in bases. Respiration equal and unlabored. HEART: Regular rate and rhythm, Systolic murmur heard at right sternal border and at apex, S1 and S2 heard. EXTREMITIES: Normal range of motion. Trace bilateral edema. No clubbing or cyanosis. Peripheral pulses intact. Right femoral cath site clean dry intact, no hematoma, 2+ peripheral pulses ASSESSMENT: NSTEMI s/p PCI circumflex on 03/25/2021 History of hypertension- currently hypotensive Dyslipidemia Elevated LVEDP Acute hypoxic respiratory failure requiring BiPAP post left heart c atheterization Pulmonary Hypertension Hypokalemia PLAN: Will increase metoprolol succinate 50mg daily Decrease lisinopril to 5mg daily Patient with significant murmur, 2D echocardiogram revealed mild mitral regurgitation, We will discuss with Dr. Majano for JIL tomorrow to further evaluate patient's mitral valve IV Lasix increased per pulmonary Continue dual antiplatelet therapy with aspirin and Brilinta Continue statin Potassium being replaced this morning Continue to monitor renal function and electrolytes From a cardiology perspective, patient can be transferred to Further recommendations based on clinical course Objective - Vital Signs Vital signs: Vital Signs Temp 98.2 F 03/28/21 08:00 Pulse 105 H 03/28/21 07:00 Resp 53 H 03/28/21 08:00 BP 115/68 03/28/21 08:00 Pulse Ox 97 03/28/21 07:00 Intake & Output 03/27/21 03/28/21 03/28/21 18:59 06:59 18:59 Intake Total 690 440 40 Output Total 0555 850 65 Balance -385 -410 -25 Weight 71.3 kg Intake: IV 240 440 40 .09 240 240 40 Potassium Chloride 10 meq 200 In Water For Injection 1 100ml.bag @ 100 mls/hr IVPB Q1HR [facility] Rx#: [id number] Oral 450 Output: Urine 1075 850 65 Other: Voiding Method Indwelling Catheter Indwelling Catheter Indwelling Catheter - Labs CBC & Chem 7: 03/28/21 06:54 03/28/21 06:54 Labs: Abnormal Lab Results - Last 24 Hours (Table) 03/27/21 03/28/21 03/28/21 Range/Units 21:04 06:54 06:54 WBC 16.8 H (3.8-10.6) k/uL RBC 4.07 L (4.30-5.90) m/uL Neutrophils # 15.3 H (1.3-7.7) k/uL Lymphocytes # 0.6 L (1.0-4.8) k/uL Potassium 3.2 L 3.2 L (3.5-5.1) mmol/L Glucose 140 H (74-99) mg/dL Magnesium 2.4 H (1.6-2.3) mg/dL
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
--- NOTE | 2021-03-28 13:29 | XR ---
EXAMINATION TYPE: XR chest 1V portable DATE OF EXAM: 03/28/2021 CLINICAL HISTORY: shortness of breath. TECHNIQUE: Portable frontal view of the chest. COMPARISON: 03/26/2021 FINDINGS: The cardiomediastinal silhouette is within normal limits for size. There is increased tent ing of the left hemidiaphragm suggestive of atelectasis. A triangular opacity at the right medial hem idiaphragm may represent pericardial fat versus atelectasis. There is increasing airspace opacities w ith air bronchograms of the bilateral lungs involving the right upper lung and diffusely involving th e left lung. No pleural effusion. No pneumothorax seen. No acute displaced osseous fracture. IMPRESSION: 1. Increasing airspace opacities of the bilateral lungs may represent multilobar pneumonia. 2. Increased tenting and atelectasis at the left lung base.
[2021-03-28] MEDS: DIPHENOX-ATROP 2.5-0.025 MG 1 EACH TAB PO PRN (13:39)
--- NOTE | 2021-03-28 15:49 | P.PN ---
Subjective Progress Note Date: 03/28/21 Patient was seen, evaluated, and examined by me this morning. He was sitting up in the chair when I saw him. His niece was at bedside. Patient reports feeling better today. He denies any significant shortness of breath when sitting in the chair. He was on 11 L of oxygen via high flow nasal cannula at the time of my evaluation with O2 sat of 99%. I decreased his oxygen to 8 L and O2 sats remained around 95%. Objective - Vital Signs Vital signs: Vital Signs Temp 98.2 F 03/28/21 08:00 Pulse 100 03/28/21 13:00 Resp 39 H 03/28/21 13:00 BP 120/81 03/28/21 13:00 Pulse Ox 97 03/28/21 13:00 Intake & Output 03/27/21 03/28/21 03/28/21 18:59 06:59 18:59 Intake Total 690 440 100 Output Total 1075 850 207 Balance -385 -410 -107 Weight 71.3 kg Intake: IV 240 440 100 .09 240 240 100 Potassium Chloride 10 meq 200 In Water For Injection 1 100ml.bag @ 100 mls/hr IVPB Q1HR [facility] Rx#: [id number] Oral 450 Output: Urine 1075 850 205 Stool 2 Other: Voiding Method Indwelling Catheter Indwelling Catheter Indwelling Catheter - Exam General: The patient is awake and alert, in no distress Eye: there is normal conjunctiva bilaterally. Neck: The neck is supple, there is no JVD. Cardiovascular: Normal S1-S2, no S3-S4, no murmurs. Respiratory: Lungs clear to auscultation bilaterally Gastrointestinal: Abdomen is soft, nontender Musculoskeletal: There is no pedal edema. Neurological:. Speech is normal. Skin: Skin is warm and dry - Labs CBC & Chem 7: 03/28/21 06:54 03/28/21 12:52 Labs: Abnormal Lab Results - Last 24 Hours (Table) 03/27/21 03/28/21 03/28/21 Range/Units 21:04 06:54 06:54 WBC 16.8 H (3.8-10.6) k/uL RBC 4.07 L (4.30-5.90) m/uL Neutrophils # 15.3 H (1.3-7.7) k/uL Lymphocytes # 0.6 L (1.0-4.8) k/uL Potassium 3.2 L 3.2 L (3.5-5.1) mmol/L Glucose 140 H (74-99) mg/dL Magnesium 2.4 H (1.6-2.3) mg/dL 03/28/21 Range/Units 12:52 WBC (3.8-10.6) k/uL RBC (4.30-5.90) m/uL Neutrophils # (1.3-7.7) k/uL Lymphocytes # (1.0-4.8) k/uL Potassium 3.3 L (3.5-5.1) mmol/L Glucose (74-99) mg/dL Magnesium (1.6-2.3) mg/dL Assessment and Plan Assessment: This is a 70-year-old male with past medical history noted below who presented to the emergency room with worsening chest pain. Patient was evaluated in the ER and admitted to the hospital for further management of his medical problems noted below. 1. Non-ST elevation [place]: Status post successful PCI with drug-eluting stent placement of mid circumflex. Continue dual antiplatelet therapy. 2. Acute diastolic congestive heart failure exacerbation with elevated BNP and evidence of pulmonary edema. Echocardiogram showed ejection fraction of 60-65%. Mild mitral valve disease with mild regurgitation noted. Started on Lasix. We will monitor urine output closely. 3. Acute hypoxic respiratory failure requiring BiPAP post left heart catheterization. Secondary to above. Currently on 8 L of oxygen via high flow nasal cannula 4. Three-vessel coronary artery disease, this was discussed with patient by cardiology. He is not interested in pursuing CABG evaluation. He underwent successful stent placement to mid circumflex 5. Mitral valve disease, noted on echocardiogram. 6. Essential hypertension, blood pressure within acceptable range. We will continue to monitor for now. 7. Hyperlipidemia, started on Lipitor 80 mg daily. LDL 142 8. CODE STATUS: Patient is full code Today, I had a prolonged discussion with the patient and his granddaughter regarding his current clinical condition. Patient is from [place] and his goal is to go back to [place] as soon as possible. He had a discussion with the cardiology team regarding doing a JIL in the morning for further evaluation of his underlying mitral valve disease as this might be contributing to his worsening pulmonary edema and hypoxia. Patient at this time is not interested in pursuing a JIL. He said that he would like to go to [place] and follow-up with his own doctor over there. He is not interested in pursuing any operation or procedure in this town. I explained to the patient that his mitral valve condition is not urgent at this time and we will attempt to continue diuresis and hopefully get him to an acceptable O2 level where he can be discharged safely and be able to return home.
[2021-03-28] MEDS: MORPHINE SULFATE 2 MG/ML SYRINGE IVP PRN (20:22)
[2021-03-29] MEDS: FUROSEMIDE 10 MG/ML 4 ML VIAL IV SCH ×2 (00:52→08:38)
[2021-03-29] MEDS: LORazepam 2 MG/ML INJ IV PRN ×4 (00:57→23:32)
[2021-03-29] MEDS ORDERED: POTASSIUM BICARBONATE/CIT AC 20 MEQ TABLET.EFF NG-TUBE SCH ×2 (01:00→05:00)
[2021-03-29 04:24] LABS: Basophils % (A) 0 %; Eosinophils # (A) 0.1 k/uL (0-0.7); Eosinophils % (A) 0 %; HCT 39.9 % (39.0-53.0); HGB 13.5 gm/dL (13.0-17.5); Lymphocytes # (A) 0.6 k/uL (1.0-4.8); Lymphocytes % (A) 5 %; MCH 32.5 pg (25.0-35.0); MCHC 33.7 g/dL (31.0-37.0); MCV 96.5 fL (80.0-100.0); Mean Platelet Volume 7.6; Monocytes # (A) 0.8 k/uL (0-1.0); Monocytes % (A) 5 %; Neutrophils # (A) 12.8 k/uL (1.3-7.7); Neutrophils % (A) 89 %; Platelet Count 241 k/uL (150-450); RBC 4.14 m/uL (4.30-5.90); RDW 12.9 % (11.5-15.5); WBC 14.3 k/uL (3.8-10.6)
[2021-03-29 04:35] LABS: African American GFR (CKD) >90 (>60 ml/min/1.73 sqM); Anion Gap 10 mmol/L; Blood Urea Nitrogen 27 mg/dL (9-20); Calcium 8.3 mg/dL (8.4-10.2); Carbon Dioxide 30 mmol/L (22-30); Chloride 98 mmol/L (98-107); Glucose 110 mg/dL (74-99); Magnesium 2.3 mg/dL (1.6-2.3); Non-African American GFR(CKD) 79 (>60 ml/min/1.73 sqM); Potassium 3.9 mmol/L (3.5-5.1); Sodium 138 mmol/L (137-145)
[2021-03-29] MEDS: THIAMINE 100 MG TAB PO SCH ×2 (07:02→16:50)
[2021-03-29] MEDS: lisinopriL 5 MG TAB PO SCH (08:38)
[2021-03-29] MEDS: ASPIRIN 81 MG PO SCH (08:38)
[2021-03-29] MEDS: ATORVASTATIN 80 MG TAB PO SCH (08:38)
[2021-03-29] MEDS: METOPROLOL SUCCINATE (ER) 50 MG TAB.ER.24H PO SCH (08:38)
[2021-03-29] MEDS: diazePAM 5 MG TAB PO SCH ×2 (08:38→19:58)
[2021-03-29] MEDS: TICAGRELOR 90 MG TAB PO SCH ×2 (08:39→19:58)
[2021-03-29] MEDS: MULTIVITAMINS, THERA 1 EACH TAB PO SCH (08:39)
--- NOTE | 2021-03-29 09:30 | XR ---
EXAMINATION TYPE: XR chest 1V portable DATE OF EXAM: 03/29/2021 COMPARISON: 03/28/2021 HISTORY: heart failure. TECHNIQUE: Single frontal view of the chest is obtained. FINDINGS: Extensive bilateral airspace disease appears similar to the prior exam. Cardiac silhouette is not enlarged. IMPRESSION: Extensive bilateral airspace disease appears similar to the prior exam.
[2021-03-29] MEDS: DIPHENOX-ATROP 2.5-0.025 MG 1 EACH TAB PO PRN (10:56)
--- NOTE | 2021-03-29 10:58 | P.PN ---
Subjective This is a 70-year-old male with history of hypertension. 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 He is visiting his brother, he is from [place]. He presented emergency department on 03/25/2021 with complaints of chest pain. EKG on admission revealed sinus rhythm with ST depressions. He underwent cardiac catheterization with Dr. Tam on 03/25 which revealed 30-40% heavily calcified left main, diffuse LAD calcification, 40-50% ostial LAD, mid diffuse 60% LAD stenosis, diffuse circumflex 50-60% stenosis and more focal 95% stenosis with extensive [id number] collaterals with the [employer]. Patient underwent PCI x 3 of mid circumflex by Dr. Majano. Patient also had some respiratory insufficiency with LVEDP noted to be elevated, IV lasix was given, patient was placed on BIPAP with improvement. 03/26/2021: Blood pressure 92/56, heart rate 69, afebrile, maintaining oxygen saturations 96% on 5 L nasal cannula. Patient was on BiPAP, having difficulty weaning due to bradycardia HR down to the 20-30s when BIPAP removed overnight, he recovered when BIPAP was placed back on. Patient is currently off BIPAP this morning, HR are in the 70s-80s sinus mechanism. Echocardiogram revealed EF of 66-65%, RV is mildly enlarged, mild aortic valve sclerosis, mild mitral regurgitation, mild prolapse of the posterior mitral valve leaflet, mild tricuspid regurgitation, moderate pulmonary hypertension with an RVSP 49 mmHg. 03/27/21: He continues to have shortness of breath, requiring oxygen, able to wean patient to 3L nasal cannula. He cannot tolerate a BIPAP overnight while sleeping. He states he does wake up short of breath overnight. Telemetry reviewed, patient is in sinus mechanism HR 60-120s. He is tachycardic this morning, and goes into right bundle branch block with elevated heart rate. Patient started on metoprolol succinate 25mg daily 03/28/2021: Patient with significant murmur, 2D echocardiogram revealed mild mitral regurgitation. We recommend JIL for further evaluation of mitral valve and it may be contributing to his hypoxia. Patient and family do not want to proceed with JIL at this time. 03/29/2021: Patient seen and examined in the ICU. He continues to be short of breath, labored breathing. Blood pressure 114/72, heart rate 107, afebrile, maintaining saturations 96% on 3 L nasal cannula.. Telemetry reviewed, patient in sinus mechanism HR 70s, occasionally is tachycardic to 110s also overnight patient was bradycardic to the 40s. Patient currently maintained on aspirin 81 mg daily, atorvastatin 80 mg daily, IV Lasix 40mg Q8hr , Brilinta 90 mg twice a day, lisinopril 5mg daily,metoprolol succinate 50mg daily. Laboratory data reviewed, WBC 14.3, hemoglobin 13.5, platelets 241, sodium 130, potassium 3.9, BUN 27, serum creatinine 0.96, proBNP 1890, magnesium 2.3. Chest xray- reveals bilateral airspace disease, cardiac does not appear enlarged GENERAL: Appears short of breath, but appears to be improving Labored breathing. NECK: Supple, no JVD LUNGS: Breath sounds diminished to auscultation bilaterally, mild crackles in bases. Respiration equal and unlabored. HEART: Regular rate and rhythm, Systolic murmur heard at right sternal border and at apex, S1 and S2 heard. EXTREMITIES: Normal range of motion. Trace bilateral edema. No clubbing or cyanosis. Peripheral pulses intact. Right femoral cath site clean dry intact, no hematoma, 2+ peripheral pulses ASSESSMENT: NSTEMI s/p PCI circumflex on 03/25/2021 History of hypertension- currently hypotensive Dyslipidemia Elevated LVEDP Acute hypoxic respiratory failure requiring BiPAP post left heart catheterization Pulmonary Hypertension Mitral Regurgitation Hypokalemia - improving PLAN: Continue metoprolol succinate 50mg daily and lisinopril to 5mg daily Patient and family do not want to proceed with JIL at this time. IV Lasix per pulmonary Continue dual antiplatelet therapy with aspirin and Brilinta Continue statin Continue to monitor renal function and electrolytes From a cardiology perspective, patient can be transferred to Further recommendations based on clinical course Objective - Vital Signs Vital signs: Vital Signs Temp 98.0 F 03/29/21 08:00 Pulse 101 H 03/29/21 08:00 Resp 30 H 03/29/21 08:00 BP 114/70 03/29/21 08:00 Pulse Ox 94 L 03/29/21 07:51 Intake & Output 03/28/21 03/29/21 03/29/21 18:59 06:59 18:59 Intake Total 200 240 40 Output Total 632 895 70 Balance -432 -505 -30 Weight 72.9 kg Intake: IV 200 240 40 .09 200 240 40 Output: Urine 630 895 70 Stool 2 Other: Voiding Method Indwelling Catheter Indwelling Catheter Indwelling Catheter - Labs CBC & Chem 7: 03/29/21 03:21 03/29/21 03:21 Labs: Abnormal Lab Results - Last 24 Hours (Table) 03/28/21 03/28/21 03/29/21 Range/Units 12:52 15:44 03:21 WBC 14.3 H (3.8-10.6) k/uL RBC 4.14 L (4.30-5.90) m/uL Neutrophils # 12.8 H (1.3-7.7) k/uL Lymphocytes # 0.6 L (1.0-4.8) k/uL Potassium 3.3 L (3.5-5.1) mmol/L BUN (9-20) mg/dL Glucose (74-99) mg/dL Calcium (8.4-10.2) mg/dL Procalcitonin 0.49 H (0.02-0.09) ng/mL 03/29/21 Range/Units 03:21 WBC (3.8-10.6) k/uL RBC (4.30-5.90) m/uL Neutrophils # (1.3-7.7) k/uL Lymphocytes # (1.0-4.8) k/uL Potassium (3.5-5.1) mmol/L BUN 27 H (9-20) mg/dL Glucose 110 H (74-99) mg/dL Calcium 8.3 L (8.4-10.2) mg/dL Procalcitonin (0.02-0.09) ng/mL
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
[2021-03-29] MEDS ORDERED: LORazepam 0.5 MG TAB PO STA (12:15)
--- NOTE | 2021-03-29 15:02 | P.PN ---
Subjective Progress Note Date: 03/29/21 Patient was seen and evaluated by me this morning. His condition is improving on a daily basis. He is currently on 2 L of oxygen via nasal cannula. He is still having dyspnea with minimal exertion even moving in bed. Chest x-ray showed diffuse infiltrate suggestive for pulmonary edema and his pro-calcitonin was elevated. There is no documented fevers. Objective - Vital Signs Vital signs: Vital Signs Temp 97.6 F 03/29/21 12:00 Pulse 59 L 03/29/21 12:00 Resp 42 H 03/29/21 12:00 BP 107/64 03/29/21 12:00 Pulse Ox 92 L 03/29/21 12:00 Intake & Output 03/28/21 03/29/21 03/29/21 18:59 06:59 18:59 Intake Total 200 240 40 Output Total 632 895 580 Balance -432 -655 -540 Weight 72.9 kg Intake: IV 200 240 40 .09 200 240 40 Output: Urine 630 895 580 Stool 2 Other: Voiding Method Indwelling Catheter Indwelling Catheter Indwelling Catheter - Exam General: The patient is awake and alert, in no distress Eye: there is normal conjunctiva bilaterally. Neck: The neck is supple, there is no JVD. Cardiovascular: Normal S1-S2, no S3-S4, no murmurs. Respiratory: Lungs clear to auscultation bilaterally Gastrointestinal: Abdomen is soft, nontender Musculoskeletal: There is no pedal edema. Neurological:. Speech is normal. Skin: Skin is warm and dry - Labs CBC & Chem 7: 03/29/21 03:21 03/29/21 03:21 Labs: Abnormal Lab Results - Last 24 Hours (Table) 03/28/21 03/29/21 03/29/21 Range/Units 15:44 03:21 03:21 WBC 14.3 H (3.8-10.6) k/uL RBC 4.14 L (4.30-5.90) m/uL Neutrophils # 12.8 H (1.3-7.7) k/uL Lymphocytes # 0.6 L (1.0-4.8) k/uL BUN 27 H (9-20) mg/dL Glucose 110 H (74-99) mg/dL Calcium 8.3 L (8.4-10.2) mg/dL Procalcitonin 0.49 H (0.02-0.09) ng/mL Assessment and Plan Assessment: This is a 70-year-old male with past medical history noted below who presented to the emergency room with worsening chest pain. Patient was evaluated in the ER and admitted to the hospital for further management of his medical problems noted below. 1. Non-ST elevation [place]: Status post successful PCI with drug-eluting stent placement of mid circumflex. Continue dual antiplatelet therapy. 2. Acute diastolic congestive heart failure exacerbation with elevated BNP and evidence of pulmonary edema. Echocardiogram showed ejection fraction of 60-65%. Mild mitral valve disease with mild regurgitation noted. Started on Lasix. We will monitor urine output closely. 3. Acute hypoxic respiratory failure requiring BiPAP post left heart catheterization. Secondary to above. Currently on 2 L of oxygen via high flow nasal cannula 4. Suspected pneumonia, given diffuse lung infiltrates on chest x-ray and elevated pro calcitonin patient was started on antibiotic with IV ceftriaxone and oral azithromycin day #1 5. Three-vessel coronary artery disease, this was discussed with patient by cardiology. He is not interested in pursuing CABG evaluation. He underwent successful stent placement to mid circumflex 6. Mitral valve disease, noted on echocardiogram. 7. Essential hypertension, blood pressure within acceptable range. We will continue to monitor for now. 8. Hyperlipidemia, started on Lipitor 80 mg daily. LDL 142 9. CODE STATUS: Patient is full code During this admission, I had a prolonged discussion with the patient and his brother regarding his current clinical condition. Patient is from [place] and his goal is to go back to [place] as soon as possible. He had a discussion with the cardiology team regarding doing a JIL for further evaluation of his underlying mitral valve disease as this might be contributing to his worsening pulmonary edema and hypoxia. Patient at this time is not interested in pursuing a JIL. He said that he would like to go to [place] and follow-up with his own doctor over there. He is not interested in pursuing any operation or procedure in this town. I explained to the patient that his mitral valve condition is not urgent at this time and we will attempt to continue diuresis and hopefully get him to an acceptable O2 level where he can be discharged safely and be able to return home. Patient will be transferred out of ICU today
[2021-03-29] MEDS: METOPROLOL TARTRATE 25 MG TAB PO SCH (15:33)
[2021-03-29 16:37] LABS: Glucose,Whole Blood 128 mg/dL (75-99)
[2021-03-29] MEDS: AZITHROMYCIN 500 MG TAB PO SCH (16:50)
[2021-03-29] MEDS: MORPHINE SULFATE 2 MG/ML SYRINGE IVP PRN (19:58)
[2021-03-29 20:02] LABS: Glucose,Whole Blood 114 mg/dL (75-99)
[2021-03-29] MEDS: BENZOCAINE/MENTHOL LOZENG 1 EACH LOZENGE MUCOUS MEM PRN (21:45)
[2021-03-30] MEDS ORDERED: FUROSEMIDE 10 MG/ML 4 ML VIAL IV STA (04:37)
[2021-03-30 06:07] LABS: Glucose,Whole Blood 113 mg/dL (75-99)
[2021-03-30] MEDS: THIAMINE 100 MG TAB PO SCH ×2 (06:41→16:05)
[2021-03-30] MEDS: ATORVASTATIN 80 MG TAB PO SCH (09:39)
[2021-03-30] MEDS: METOPROLOL SUCCINATE (ER) 50 MG TAB.ER.24H PO SCH (09:39)
[2021-03-30] MEDS: diazePAM 5 MG TAB PO SCH (09:39)
[2021-03-30] MEDS: AZITHROMYCIN 500 MG TAB PO SCH (09:39)
[2021-03-30] MEDS: TICAGRELOR 90 MG TAB PO SCH ×2 (09:39→20:24)
[2021-03-30] MEDS: MULTIVITAMINS, THERA 1 EACH TAB PO SCH (09:39)
[2021-03-30] MEDS: lisinopriL 5 MG TAB PO SCH (09:39)
[2021-03-30] MEDS: ASPIRIN 81 MG PO SCH (09:39)
--- NOTE | 2021-03-30 09:48 | XR ---
EXAMINATION TYPE: XR chest 1V portable DATE OF EXAM: 03/30/2021 CLINICAL HISTORY: SOB. TECHNIQUE: Portable frontal view of the chest. COMPARISON: 03/29/2021 FINDINGS: The cardiomediastinal silhouette is within normal limits for size. Patchy airspace opaciti es and air bronchograms, worst over the bilateral upper lungs, mildly increased in confluence versus 03/29/2021 on the left. No pleural effusion. No pneumothorax seen. No acute displaced osseous fractur e. IMPRESSION: Bilateral airspace opacities redemonstrated, mildly increased over the left upper lung versus 03/29/20.
[2021-03-30 11:49] LABS: Glucose,Whole Blood 121 mg/dL (75-99)
[2021-03-30] MEDS: FUROSEMIDE 10 MG/ML 4 ML VIAL IV SCH (11:58)
[2021-03-30] MEDS: PANTOPRAZOLE 40 MG TABLET PO SCH (11:58)
[2021-03-30 12:19] LABS: African American GFR (CKD) >90 (>60 ml/min/1.73 sqM); Anion Gap 10 mmol/L; Blood Urea Nitrogen 25 mg/dL (9-20); Calcium 8.9 mg/dL (8.4-10.2); Carbon Dioxide 30 mmol/L (22-30); Chloride 96 mmol/L (98-107); Glucose 133 mg/dL (74-99); Magnesium 2.4 mg/dL (1.6-2.3); Non-African American GFR(CKD) 90 (>60 ml/min/1.73 sqM); Potassium 3.3 mmol/L (3.5-5.1); Sodium 136 mmol/L (137-145)
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
--- NOTE | 2021-03-30 14:11 | P.PN ---
Subjective This is a 70-year-old male with history of hypertension. He does not follow with a marine water tender. He is visiting his brother, he is from [place]. He presented emergency department on 03/25/2021 with complaints of chest pain. EKG on admission revealed sinus rhythm with ST depressions. He underwent cardiac catheterization with Dr. Tam on 03/25 which revealed 30-40% heavily calcified left main, diffuse LAD calcification, 40-50% ostial LAD, mid diffuse 60% LAD stenosis, diffuse circumflex 50-60% stenosis and more focal 95% stenosis with extensive [id number] collaterals with the RCA [employer]. Patient underwent PCI x 3 of mid circumflex by Dr. Majano. Patient also had some respiratory insufficiency with LVEDP noted to be elevated, IV lasix was given, patient was placed on BIPAP with improvement. 03/26/2021: Blood pressure 92/56, heart rate 69, afebrile, maintaining oxygen saturations 96% on 5 L nasal cannula. Patient was on BiPAP, having difficulty weaning due to bradycardia HR down to the 20-30s when BIPAP removed overnight, he recovered when BIPAP was placed back on. Patient is currently off BIPAP this morning, HR are in the 70s-80s sinus mechanism. Echocardiogram revealed EF of 66-65%, RV is mildly enlarged, mild aortic valve sclerosis, mild mitral regurgitation, mild prolapse of the posterior mitral valve leaflet, mild tricuspid regurgitation, moderate pulmonary hypertension with an RVSP 49 mmHg. 03/27/21: He continues to have shortness of breath, requiring oxygen, able to wean patient to 3L nasal cannula. He cannot tolerate a BIPAP overnight while sleeping. He states he does wake up short of breath overnight. Telemetry reviewed, patient is in sinus mechanism HR 60-120s. He is tachycardic this morning, and goes into right bundle branch block with elevated heart rate. Patient started on metoprolol succinate 25mg daily 03/28/2021: Patient with significant murmur, 2D echocardiogram revealed mild mitral regurgitation. We recommend JIL for further evaluation of mitral valve and it may be contributing to his hypoxia. Patient and family do not want to proceed with JIL at this time. 03/29/2021: Patient transferred out of the ICU to [facility]. 03/30/2021: Patient seen and examined at bedside. Apparently patient had increased confusion overnight and hypoxia. His oxygen requirements were increased to 5 L high flow nasal cannula. He is currently on [facility] for alcohol withdrawal. He did receive Ativan, oxycodone, IV morphine. He also received additional dose of IV 40mg Lasix. His breathing has improved. Vitals reviewed. Patient currently maintained on aspirin 81 mg daily, atorvastatin 80 mg daily, IV Lasix 40mg BID , Brilinta 90 mg twice a day, lisinopril 5mg daily,metoprolol succinate 50mg daily. Laboratory data reviewed, sodium 136, potassium 3.3, BUN 25, serum creatinine 0.80, magnesium 2.4. He is adamant on going home. GENERAL: Appears short of breath, but appears to be improving Labored breathing. NECK: Supple, no JVD LUNGS: Breath sounds diminished to auscultation bilaterally, mild crackles in bases. Respiration equal and unlabored. HEART: Regular rate and rhythm, Systolic murmur heard at right sternal border and at apex, S1 and S2 heard. EXTREMITIES: Normal range of motion. Trace bilateral edema. No clubbing or cyanosis. Peripheral pulses intact. Right femoral cath site clean dry intact, no hematoma, 2+ peripheral pulses ASSESSMENT: NSTEMI s/p PCI circumflex on 03/25/2021 History of hypertension- currently hypotensive Dyslipidemia Elevated LVEDP Acute hypoxic respiratory failure requiring BiPAP post left heart catheterization Pulmonary Hypertension Mitral Regurgitation Hypokalemia ETOH abuse PLAN: Replace Potassium Continue metoprolol succinate 50mg daily and lisinopril to 5mg daily Patient and family do not want to proceed with JIL at this time. Lasix per pulmonary Continue dual antiplatelet therapy with aspirin and Brilinta Continue statin Continue to monitor renal function and electrolytes From a cardiology perspective, if patient remains stable, ok to discharge. Recommend close follow up with his primary care provider and to have a marine water tender to follow him in [place]. Objective - Vital Signs Vital signs: Vital Signs Temp 97.9 F 03/30/21 12:00 Pulse 89 03/30/21 13:43 Resp 19 03/30/21 13:43 BP 107/56 03/30/21 12:00 Pulse Ox 97 03/30/21 12:00 Intake & Output 03/29/21 03/30/21 03/30/21 18:59 06:59 18:59 Intake Total 40 50 Output Total 780 475 Balance -740 -475 50 Weight 70.5 kg Intake: IV 40 .09 40 Intake, IV Titration 50 Amount cefTRIAXone 1 gm In 50 Sodium Chloride 0.9% 50 ml @ 100 mls/hr IVPB Q24HR [facility] Rx#:[id number] Output: Urine 780 475 Other: Voiding Method Indwelling Catheter Urinal Urinal # Voids 0 2 - Labs CBC & Chem 7: 03/29/21 03:21 03/30/21 11:34 Labs: Abnormal Lab Results - Last 24 Hours (Table) 03/29/21 03/29/21 03/30/21 Range/Units 16:34 19:58 06:05 Sodium (137-145) mmol/L Potassium (3.5-5.1) mmol/L Chloride (98-107) mmol/L BUN (9-20) mg/dL Glucose (74-99) mg/dL POC Glucose (mg/dL) 128 H 114 H 113 H (75-99) mg/dL Magnesium (1.6-2.3) mg/dL 03/30/21 03/30/21 Range/Units 11:34 11:48 Sodium 136 L (137-145) mmol/L Potassium 3.3 L (3.5-5.1) mmol/L Chloride 96 L (98-107) mmol/L BUN 25 H (9-20) mg/dL Glucose 133 H (74-99) mg/dL POC Glucose (mg/dL) 121 H (75-99) mg/dL Magnesium 2.4 H (1.6-2.3) mg/dL
[2021-03-30] MEDS: POTASSIUM CHLORIDE ER 20 MEQ TAB.ER PO SCH ×2 (14:39→16:05)
[2021-03-30 16:45] LABS: Glucose,Whole Blood 107 mg/dL (75-99)
[2021-03-30 20:01] LABS: Glucose,Whole Blood 131 mg/dL (75-99)
--- NOTE | 2021-03-30 20:32 | P.PN ---
Subjective Progress Note Date: 03/30/21 (delayed charting seen at 1430) Principal diagnosis: chest pain Patient is a 70-year-old male with a history of pneumonia, hypertension, and marijuana use who presented to the emergency room with complaints of chest pain. He ultimately was found have a non-ST segment elevated myocardial infarction and he underwent cardiac catheterization which successful PCI of the mid circumflex. Patient seen and examined at bedside. He has no respiratory back to [place]. He is still feeling quite winded and dyspneic. He is having some issues walking to the bathroom. He denies any overt chest pain, no nausea or vomiting. We had a long discussion about how to get him to return to [place]. He is aware that he will need a JIL when he goes there to further assess his mitral valve that he does not want this done at this time. General: non toxic, mild distress, appears at stated age Derm: warm, dry Head: atraumatic, normocephalic, symmetric Eyes: EOMI, no lid lag, anicteric sclera Mouth: no lip lesion, mucus membranes dry Cardiovascular: S1S2 reg, no murmur, positive posterior tibial pulse bilateral, Lungs: Rhonchi bilateral, no accessory muscle use, 2 word conversational dyspnea Abdominal: soft, nontender to palpation, no guarding, no appreciable organomegaly Ext: no gross muscle atrophy, trace edema, no contractures Neuro: CN II-XI grossly intact, no focal neuro deficits Psych: Alert, oriented, appropriate affect Non-ST segment elevated myocardial infarction status post PCI to the left circumflex Acute diastolic congestive heart failure with ejection fraction 60-65% Probable community-acquired pneumonia Acute hypoxic respiratory failure requiring BiPAP, improving Triple-vessel coronary artery disease, patient is not interested in pursuing CABG evaluation at this time Essential hypertension Dyslipidemia EtOH misuse Mitral valve disease Continue with diuresis and antibiotics. Follow chest x-ray. Patient will need to be off of oxygen ideally to be discharged as we are unable to provide this. His insurance. If we cannot get him once in 2 L by early next week he is willing to read oxygen equipment and attempt to travel to [place]. We had a long discussion on the safest way to get to [place] and the importance of following up with the family physician as well as microbiology quality control technician. Continue with cardiology recommendations and metoprolol as well as lisinopril. Continue with IV diuresis. Objective - Vital Signs Vital signs: Vital Signs Temp 98.0 F 03/30/21 16:00 Pulse 94 03/30/21 16:00 Resp 18 03/30/21 16:00 BP 94/61 03/30/21 16:00 Pulse Ox 97 03/30/21 16:11 Intake & Output 03/30/21 03/30/21 03/31/21 06:59 18:59 06:59 Intake Total 470 Output Total 475 Balance -475 470 Weight 70.5 kg Intake: Intake, IV Titration 50 Amount cefTRIAXone 1 gm In 50 Sodium Chloride 0.9% 50 ml @ 100 mls/hr IVPB Q24HR [facility] Rx#:[id number] Oral 420 Output: Urine 475 Other: Voiding Method Urinal Urinal # Voids 2 - Labs CBC & Chem 7: 03/29/21 03:21 03/30/21 11:34 Labs: Abnormal Lab Results - Last 24 Hours (Table) 03/30/21 03/30/21 03/30/21 Range/Units 06:05 11:34 11:48 Sodium 136 L (137-145) mmol/L Potassium 3.3 L (3.5-5.1) mmol/L Chloride 96 L (98-107) mmol/L BUN 25 H (9-20) mg/dL Glucose 133 H (74-99) mg/dL POC Glucose (mg/dL) 113 H 121 H (75-99) mg/dL Magnesium 2.4 H (1.6-2.3) mg/dL 03/30/21 03/30/21 Range/Units 16:43 19:59 Sodium (137-145) mmol/L Potassium (3.5-5.1) mmol/L Chloride (98-107) mmol/L BUN (9-20) mg/dL Glucose (74-99) mg/dL POC Glucose (mg/dL) 107 H 131 H (75-99) mg/dL Magnesium (1.6-2.3) mg/dL
[2021-03-30] MEDS: diazePAM 5 MG TAB PO PRN (23:17)
[2021-03-31] MEDS: BENZOCAINE/MENTHOL LOZENG 1 EACH LOZENGE MUCOUS MEM PRN (02:19)
[2021-03-31 06:08] LABS: Glucose,Whole Blood 124 mg/dL (75-99)
[2021-03-31] MEDS: THIAMINE 100 MG TAB PO SCH ×2 (06:24→17:12)
[2021-03-31] MEDS: PANTOPRAZOLE 40 MG TABLET PO SCH (06:24)
[2021-03-31 08:17] LABS: HCT 36.6 % (39.0-53.0); HGB 11.8 gm/dL (13.0-17.5); MCH 31.5 pg (25.0-35.0); MCHC 32.3 g/dL (31.0-37.0); MCV 97.4 fL (80.0-100.0); Mean Platelet Volume 7.1; Platelet Count 284 k/uL (150-450); RBC 3.76 m/uL (4.30-5.90); RDW 13.4 % (11.5-15.5); WBC 9.5 k/uL (3.8-10.6)
[2021-03-31 08:28] LABS: African American GFR (CKD) >90 (>60 ml/min/1.73 sqM); Anion Gap 9 mmol/L; Blood Urea Nitrogen 20 mg/dL (9-20); Calcium 8.8 mg/dL (8.4-10.2); Carbon Dioxide 27 mmol/L (22-30); Chloride 99 mmol/L (98-107); Glucose 118 mg/dL (74-99); Magnesium 2.3 mg/dL (1.6-2.3); Non-African American GFR(CKD) >90 (>60 ml/min/1.73 sqM); Potassium 3.4 mmol/L (3.5-5.1); Sodium 135 mmol/L (137-145)
[2021-03-31] MEDS ORDERED: Potassium Replacement Protocol 1 EACH MISC MISCELLANE PRN (08:36)
[2021-03-31] MEDS: ASPIRIN 81 MG PO SCH (08:51)
[2021-03-31] MEDS: lisinopriL 5 MG TAB PO SCH (08:51)
[2021-03-31] MEDS: POTASSIUM CHLORIDE ER 20 MEQ TAB.ER PO SCH ×2 (08:51→10:15)
[2021-03-31] MEDS: TICAGRELOR 90 MG TAB PO SCH ×2 (08:51→19:50)
[2021-03-31] MEDS: ATORVASTATIN 80 MG TAB PO SCH (08:51)
[2021-03-31] MEDS: METOPROLOL SUCCINATE (ER) 50 MG TAB.ER.24H PO SCH (08:51)
[2021-03-31] MEDS: AZITHROMYCIN 500 MG TAB PO SCH (08:51)
[2021-03-31] MEDS: MULTIVITAMINS, THERA 1 EACH TAB PO SCH (08:51)
--- NOTE | 2021-03-31 09:05 | XR ---
EXAMINATION TYPE: XR chest 2V DATE OF EXAM: 03/31/2021 COMPARISON: 03/30/2021 INDICATION: Fluid overload TECHNIQUE: Frontal and lateral views of the chest are obtained. FINDINGS: The heart size is normal. The pulmonary vasculature is indistinct. Upper lobe infiltrates are present bilaterally. Findings are worsening over the interval. IMPRESSION: 1. Worsening bilateral upper lobe infiltrates. Findings can be compatible with atypical pulmonary roni ma. Continued follow-up is recommended.
[2021-03-31] MEDS ORDERED: FUROSEMIDE 10 MG/ML 4 ML VIAL IV STA (09:26)
[2021-03-31] MEDS: IPRATROPIUM-ALBUTEROL 3 ML NEB INHALATION PRN ×3 (12:15→23:59)
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
--- NOTE | 2021-03-31 12:35 | P.PN ---
Subjective Progress Note Date: 03/31/21 HISTORY OF PRESENT ILLNESS: This is a 70-year-old male with history of hypertension. 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 He is visiting his brother, he is from [place]. He pre sented emergency department on 03/25/2021 with complaints of chest pain. EKG on admission revealed sinus rhythm with ST depressions. He underwent cardiac catheterization with Dr. Tam on 03/25 which revealed 30-40% heavily calcified left main, diffuse LAD calcification, 40-50% ostial LAD, mid diffuse 60% LAD stenosis, diffuse circumflex 50-60% stenosis and more focal 95% stenosis with extensive [id number] collaterals with the [employer] IN[employer]ATION [employer]. Patient underwent PCI x 3 of mid circumflex by Dr. Majano. Patient also had some respiratory insufficiency with LVEDP noted to be elevated, IV lasix was given, patient was placed on BIPAP with improvement. 03/26/2021: Blood pressure 92/56, heart rate 69, afebrile, maintaining oxygen saturations 96% on 5 L nasal cannula. Patient was on BiPAP, having difficulty weaning due to bradycardia HR down to the 20-30s when BIPAP removed overnight, he recovered when BIPAP was placed back on. Patient is currently off BIPAP this morning, HR are in the 70s-80s sinus mechanism. Echocardiogram revealed EF of 66-65%, RV is mildly enlarged, mild aortic valve sclerosis, mild mitral regurgitation, mild prolapse of the posterior mitral valve leaflet, mild tricuspid regurgitation, moderate pulmonary hypertension with an RVSP 49 mmHg. 03/27/21: He continues to have shortness of breath, requiring oxygen, able to wean patient to 3L nasal cannula. He cannot tolerate a BIPAP overnight while sleeping. He states he does wake up short of breath overnight. Telemetry reviewed, patient is in sinus mechanism HR 60-120s. He is tachycardic this morning, and goes into right bundle branch block with elevated heart rate. Patient started on metoprolol succinate 25mg daily 03/28/2021: Patient with significant murmur, 2D echocardiogram revealed mild mitral regurgitation. We recommend JIL for further evaluation of mitral valve and it may be contributing to his hypoxia. Patient and family do not want to proceed with JIL at this time. 03/29/2021: Patient transferred out of the ICU to [facility]. 03/30/2021: Patient seen and examined at bedside. Apparently patient had increased confusion overnight and hypoxia. His oxygen requirements were increased to 5 L high flow nasal cannula. He is currently on [facility] for alcohol withdrawal. He did receive Ativan, oxycodone, IV morphine. He also received additional dose of IV 40mg Lasix. His breathing has improved. Vitals reviewed. Patient currently maintained on aspirin 81 mg daily, atorvastatin 80 mg daily, IV Lasix 40mg BID , Brilinta 90 mg twice a day, lisinopril 5mg daily,metoprolol succinate 50mg daily. Laboratory data reviewed, sodium 136, potassium 3.3, BUN 25, serum creatinine 0.80, magnesium 2.4. He is adamant on going home. 03/31/2021 Patient examined this morning at the bedside. Patient denies chest pain or pressure. He denies shortness of breath. Patient does report a productive cough overnight. PHYSICAL EXAM: VITAL SIGNS: Reviewed. GENERAL: Well-developed in no acute distress. NECK: Supple. No JVD or thyromegaly LUNGS: Respirations even and unlabored. Lungs diminished bilaterally. HEART: Regular rate and rhythm. S1 and S2 heard. Systolic murmur noted EXTREMITIES: Normal range of motion. No clubbing or cyanosis. Peripheral pulses intact. Trace lower extremity edema ASSESSMENT: NSTEMI s/p PCI circumflex on 03/25/2021 History of hypertension- currently hypotensive Dyslipidemia Elevated LVEDP Acute hypoxic respiratory failure requiring BiPAP post left heart catheterization Pulmonary Hypertension Mitral Regurgitation Hypokalemia ETOH abuse PLAN: Continue current cardiac medications Continue dual antiplatelet therapy with aspirin and brilinta Patient does not want to proceed with JIL Wean oxygen as tolerated IV lasix per pulmonary Patient is stable from a cardiac standpoint Patient to follow up outpatient with his primary parcel post weigher Nurse practitioner note has been reviewed by physician. Signing provider agrees with the documented findings, assessment, and plan of care. Objective - Vital Signs Vital signs: Vital Signs Temp 98.4 F 03/31/21 08:40 Pulse 80 03/31/21 12:26 Resp 20 03/31/21 08:40 BP 109/63 03/31/21 08:40 Pulse Ox 94 L 03/31/21 08:40 Intake & Output 03/30/21 03/31/21 03/31/21 18:59 06:59 18:59 Intake Total 470 100 Output Total 677 Balance 470 -577 Weight 71.1 kg Intake: Intake, IV Titration 50 Amount cefTRIAXone 1 gm In 50 Sodium Chloride 0.9% 50 ml @ 100 mls/hr IVPB Q24HR [facility] Rx#:[id number] Oral 420 100 Output: Urine 675 Stool 2 Other: Voiding Method Urinal Urinal Urinal # Voids 2 2 - Labs CBC & Chem 7: 03/31/21 07:59 03/31/21 07:59 Labs: Abnormal Lab Results - Last 24 Hours (Table) 03/30/21 03/30/21 03/31/21 Range/Units 16:43 19:59 06:06 RBC (4.30-5.90) m/uL Hgb (13.0-17.5) gm/dL Hct (39.0-53.0) % Sodium (137-145) mmol/L Potassium (3.5-5.1) mmol/L Glucose (74-99) mg/dL POC Glucose (mg/dL) 107 H 131 H 124 H (75-99) mg/dL 03/31/21 03/31/21 Range/Units 07:59 07:59 RBC 3.76 L (4.30-5.90) m/uL Hgb 11.8 L (13.0-17.5) gm/dL Hct 36.6 L (39.0-53.0) % Sodium 135 L (137-145) mmol/L Potassium 3.4 L (3.5-5.1) mmol/L Glucose 118 H (74-99) mg/dL POC Glucose (mg/dL) (75-99) mg/dL
--- NOTE | 2021-03-31 16:21 | P.PN ---
Subjective Progress Note Date: 03/31/21 (delayed charting seen at 1045) Principal diagnosis: chest pain Patient is a 70-year-old male with a history of pneumonia, hypertension, and marijuana use who presented to the emergency room with complaints of chest pain. He ultimately was found have a non-ST segment elevated myocardial infarction and he underwent cardiac cath with successful PCI of the mid circumflex. He was done Pulmonary edema was subsequently started on Lasix. He developed significant respiratory distress postcatheterization requiring BiPAP therapy. He also developed some hypotension. Pulmonology was consulted. He underwent an echocardiogram which showed preserved ejection fraction but did demonstrate some mitral valve disease, which appeared to be significant on clinical examination. Patient did not want to undergo a JIL in [place] and has deferred this to [place] where he lives. By 03/28 he was able to be decreased a high flow nasal cannula. Patient seen and examined at bedside. He has no respiratory back to [place]. He is still feeling quite winded and dyspneic. He is having some issues walking to the bathroom. He denies any overt chest pain, no nausea or vomiting. We had a long discussion about how to get him to return to [place]. He is aware that he will need a JIL when he goes there to further assess his mitral valve that he does not want this done at this time. He had slow improvement in his oxygen requirements. Patient seen and examined at bedside. He still feels dyspneic. We again discussed that turning his oxygen up will not help with his dyspnea unless he is hypoxic. He still feeling significantly weak. He is worried about the fact that his insurance company will not cover oxygen based out of [place]. We again discussed that we will reevaluate on Friday and try her heart is typically patient off of oxygen. General: non toxic, mild distress, appears at stated age Derm: warm, dry Head: atraumatic, normocephalic, symmetric Eyes: EOMI, no lid lag, anicteric sclera Mouth: no lip lesion, mucus membranes dry Cardiovascular: S1S2 reg, with grade 3 diastolic murmur, positive posterior tibial pulse bilateral, Lungs: Rhonchi bilateral, no accessory muscle use, 2 word conversational dyspnea Abdominal: soft, nontender to palpation, no guarding, no appreciable organomegaly Ext: no gross muscle atrophy, trace edema, no contractures Neuro: CN II-XI grossly intact, no focal neuro deficits Psych: Alert, oriented, appropriate affect Assessment: Non-ST segment elevated myocardial infarction status post PCI to the left circumflex Acute diastolic congestive heart failure with ejection fraction 60-65% Probable community-acquired pneumonia Acute hypoxic respiratory failure requiring BiPAP, improving Triple-vessel coronary artery disease, patient is not interested in pursuing CABG evaluation at this time Essential hypertension Dyslipidemia EtOH misuse Mitral valve disease Plan: -Continue with aspirin, Brillenta, Lipitor -Continue with lisinopril, Lasix, and metoprolol -Continue with Rocephin and Zithromax. We'll be doing physician to oral antibiotics to complete a 7 day course on discharge. -Patient cannot be discharged unless not requiring oxygen as we're unable to obtain this through his insurance which is out of state at this time -Start Cepacol and Tessalon secondary to sore throat with cough -Covid testing was negative -Patient is aware that he will need quick follow-up with his primary care physician and establish with a professional engineer on return to [place]. He was reminded of the importance of following up on his mitral valve disease. -Continue with Valium as needed for anxiety and home chronic pain medications. Anticipate D/C on Friday when case management can look into Oxygen option as could not find supplier for his out of state insurance. Objective - Vital Signs Vital signs: Vital Signs Temp 98.0 F 03/31/21 13:19 Pulse 77 03/31/21 13:19 Resp 18 03/31/21 13:19 BP 99/58 03/31/21 13:19 Pulse Ox 94 L 03/31/21 13:19 Intake & Output 03/30/21 03/31/21 03/31/21 18:59 06:59 18:59 Intake Total 470 100 118 Output Total 677 Balance 470 -577 118 Weight 71.1 kg Intake: Intake, IV Titration 50 Amount cefTRIAXone 1 gm In 50 Sodium Chloride 0.9% 50 ml @ 100 mls/hr IVPB Q24HR [facility] Rx#:[id number] Oral 420 100 118 Output: Urine 675 Stool 2 Other: Voiding Method Urinal Urinal Urinal # Voids 2 2 2 - Labs CBC & Chem 7: 03/31/21 07:59 03/31/21 07:59 Labs: Abnormal Lab Results - Last 24 Hours (Table) 03/30/21 03/30/2121 Range/Units 16:43 19:59 06:06 RBC (4.30-5.90) m/uL Hgb (13.0-17.5) gm/dL Hct (39.0-53.0) % Sodium (137-145) mmol/L Potassium (3.5-5.1) mmol/L Glucose (74-99) mg/dL POC Glucose (mg/dL) 107 H 131 H 124 H (75-99) mg/dL 03/31/21 03/31/21 Range/Units 07:59 07:59 RBC 3.76 L (4.30-5.90) m/uL Hgb 11.8 L (13.0-17.5) gm/dL Hct 36.6 L (39.0-53.0) % Sodium 135 L (137-145) mmol/L Potassium 3.4 L (3.5-5.1) mmol/L Glucose 118 H (74-99) mg/dL POC Glucose (mg/dL) (75-99) mg/dL
[2021-03-31] MEDS: BENZONATATE 100 MG CAP PO PRN ×2 (17:12→21:58)
[2021-03-31] MEDS: FUROSEMIDE 10 MG/ML 4 ML VIAL IV SCH (17:13)
[2021-03-31] MEDS: diazePAM 5 MG TAB PO PRN (23:17)
[2021-04-01] MEDS: BENZOCAINE/MENTHOL LOZENG 1 EACH LOZENGE MUCOUS MEM PRN (02:56)
[2021-04-01] MEDS: BENZONATATE 100 MG CAP PO PRN (05:15)
[2021-04-01] MEDS: THIAMINE 100 MG TAB PO SCH ×2 (06:11→16:44)
[2021-04-01] MEDS: PANTOPRAZOLE 40 MG TABLET PO SCH ×2 (06:11→16:44)
[2021-04-01] MEDS: diazePAM 5 MG TAB PO PRN ×3 (06:13→21:46)
[2021-04-01 07:42] LABS: Basophils % (A) 0 %; Eosinophils # (A) 0.1 k/uL (0-0.7); Eosinophils % (A) 1 %; HCT 35.1 % (39.0-53.0); HGB 11.8 gm/dL (13.0-17.5); Lymphocytes # (A) 0.9 k/uL (1.0-4.8); Lymphocytes % (A) 9 %; MCH 32.5 pg (25.0-35.0); MCHC 33.7 g/dL (31.0-37.0); MCV 96.4 fL (80.0-100.0); Mean Platelet Volume 7.3; Monocytes # (A) 0.8 k/uL (0-1.0); Monocytes % (A) 7 %; Neutrophils # (A) 8.3 k/uL (1.3-7.7); Neutrophils % (A) 81 %; Platelet Count 330 k/uL (150-450); RBC 3.65 m/uL (4.30-5.90); WBC 10.2 k/uL (3.8-10.6)
[2021-04-01 08:01] LABS: African American GFR (CKD) >90 (>60 ml/min/1.73 sqM); Anion Gap 10 mmol/L; Blood Urea Nitrogen 18 mg/dL (9-20); Calcium 8.8 mg/dL (8.4-10.2); Carbon Dioxide 28 mmol/L (22-30); Chloride 97 mmol/L (98-107); Glucose 172 mg/dL (74-99); Magnesium 2.2 mg/dL (1.6-2.3); Non-African American GFR(CKD) >90 (>60 ml/min/1.73 sqM); Sodium 135 mmol/L (137-145)
[2021-04-01] MEDS ORDERED: Potassium Replacement Protocol 1 EACH MISC MISCELLANE PRN (08:26)
[2021-04-01] MEDS: TICAGRELOR 90 MG TAB PO SCH ×2 (08:32→21:47)
[2021-04-01] MEDS: lisinopriL 5 MG TAB PO SCH (08:32)
[2021-04-01] MEDS: ASPIRIN 81 MG PO SCH (08:33)
[2021-04-01] MEDS: METOPROLOL SUCCINATE (ER) 50 MG TAB.ER.24H PO SCH (08:33)
[2021-04-01] MEDS: AZITHROMYCIN 500 MG TAB PO SCH (08:33)
[2021-04-01] MEDS: MULTIVITAMINS, THERA 1 EACH TAB PO SCH (08:33)
[2021-04-01] MEDS: ATORVASTATIN 80 MG TAB PO SCH (08:33)
[2021-04-01] MEDS: POTASSIUM CHLORIDE ER 20 MEQ TAB.ER PO SCH ×2 (08:38→12:49)
--- NOTE | 2021-04-01 10:16 | P.PN ---
Subjective Progress Note Date: 04/01/21 HISTORY OF PRESENT ILLNESS: This is a 70-year-old male with history of hypertension. He does not follow with a site worker. He is visiting his brother, he is from [place]. He pre sented emergency department on 03/25/2021 with complaints of chest pain. EKG on admission revealed sinus rhythm with ST depressions. He underwent cardiac catheterization with Dr. Tam on 03/25 which revealed 30-40% heavily calcified left main, diffuse LAD calcification, 40-50% ostial LAD, mid diffuse 60% LAD stenosis, diffuse circumflex 50-60% stenosis and more focal 95% stenosis with extensive [id number] collaterals with the [employer]. Patient underwent PCI x 3 of mid circumflex by Dr. Majano. Patient also had some respiratory insufficiency with LVEDP noted to be elevated, IV lasix was given, patient was placed on BIPAP with improvement. 03/26/2021: Blood pressure 92/56, heart rate 69, afebrile, maintaining oxygen saturations 96% on 5 L nasal cannula. Patient was on BiPAP, having difficulty weaning due to bradycardia HR down to the 20-30s when BIPAP removed overnight, he recovered when BIPAP was placed back on. Patient is currently off BIPAP this morning, HR are in the 70s-80s sinus mechanism. Echocardiogram revealed EF of 66-65%, RV is mildly enlarged, mild aortic valve sclerosis, mild mitral regurgitation, mild prolapse of the posterior mitral valve leaflet, mild tricuspid regurgitation, moderate pulmonary hypertension with an RVSP 49 mmHg. 03/27/21: He continues to have shortness of breath, requiring oxygen, able to wean patient to 3L nasal cannula. He cannot tolerate a BIPAP overnight while sleeping. He states he does wake up short of breath overnight. Telemetry reviewed, patient is in sinus mechanism HR 60-120s. He is tachycardic this morning, and goes into right bundle branch block with elevated heart rate. Patient started on metoprolol succinate 25mg daily 03/28/2021: Patient with significant murmur, 2D echocardiogram revealed mild mitral regurgitation. We recommend JIL for further evaluation of mitral valve and it may be contributing to his hypoxia. Patient and family do not want to proceed with JIL at this time. 03/29/2021: Patient transferred out of the ICU to [facility]. 03/30/2021: Patient seen and examined at bedside. Apparently patient had increased confusion overnight and hypoxia. His oxygen requirements were increased to 5 L high flow nasal cannula. He is currently on [facility] for alcohol withdrawal. He did receive Ativan, oxycodone, IV morphine. He also received additional dose of IV 40mg Lasix. His breathing has improved. Vitals reviewed. Patient currently maintained on aspirin 81 mg daily, atorvastatin 80 mg daily, IV Lasix 40mg BID , Brilinta 90 mg twice a day, lisinopril 5mg daily,metoprolol succinate 50mg daily. Laboratory data reviewed, sodium 136, potassium 3.3, BUN 25, serum creatinine 0.80, magnesium 2.4. He is adamant on going home. 03/31/2021 Patient examined this morning at the bedside. Patient denies chest pain or pressure. He denies shortness of breath. Patient does report a productive cough overnight. 04/01/2021 Patient examined this morning at the bedside. Patient denies chest pain or pressure. He denies shortness of breath. He reports a productive cough this morning. He remains on nasal cannula with oxygen saturations greater than 92%. Discharge planning is underway for home oxygen. PHYSICAL EXAM: VITAL SIGNS: Reviewed. GENERAL: Well-developed in no acute distress. NECK: Supple. No JVD or thyromegaly LUNGS: Respirations even and unlabored. Lungs diminished bilaterally. HEART: Regular rate and rhythm. S1 and S2 heard. Systolic murmur noted EXTREMITIES: Normal range of motion. No clubbing or cyanosis. Peripheral pulses intact. Trace lower extremity edema ASSESSMENT: NSTEMI s/p PCI circumflex on 03/25/2021 Hypertension Dyslipidemia Elevated LVEDP Acute hypoxic respiratory failure requiring BiPAP post left heart catheterizati on Pulmonary Hypertension Mitral Regurgitation Hypokalemia ETOH abuse PLAN: Continue current cardiac medications Continue dual antiplatelet therapy with aspirin and brilinta Patient does not want to proceed with JIL Wean oxygen as tolerated. Patient to be discharged with home oxygen IV lasix per pulmonary Patient is stable from a cardiac standpoint Patient to follow up outpatient with his primary site worker in [place]. Nurse practitioner note has been reviewed by physician. Signing provider agrees with the documented findings, assessment, and plan of care. Objective - Vital Signs Vital signs: Vital Signs Temp 98.2 F 04/01/21 08:24 Pulse 101 H 04/01/21 08:24 Resp 16 04/01/21 08:24 BP 119/69 04/01/21 08:24 Pulse Ox 93 L 04/01/21 08:24 Intake & Output 03/31/21 04/01/21 04/01/21 18:59 06:59 18:59 Intake Total 118 Output Total 2 Balance 118 -2 Weight 70.9 kg Intake: Oral 118 Output: Stool 2 Other: Voiding Method Urinal Urinal # Voids 3 3 1 # Bowel Movements 1 - Labs CBC & Chem 7: 04/01/21 07:08 04/01/21 07:08 Labs: Abnormal Lab Results - Last 24 Hours (Table) 04/01/21 04/01/21 Range/Units 07:08 07:08 RBC 3.65 L (4.30-5.90) m/uL Hgb 11.8 L (13.0-17.5) gm/dL Hct 35.1 L (39.0-53.0) % Neutrophils # 8.3 H (1.3-7.7) k/uL Lymphocytes # 0.9 L (1.0-4.8) k/uL Sodium 135 L (137-145) mmol/L Potassium 3.0 L (3.5-5.1) mmol/L Chloride 97 L (98-107) mmol/L Glucose 172 H (74-99) mg/dL
--- NOTE | 2021-04-01 11:56 | P.PN ---
Subjective Progress Note Date: 04/01/21 Principal diagnosis: Acute non-ST elevated myocardial infarction This is a 70-year-old white male, known history of hypertension, no previous history of documented coronary artery disease, patient presented to the ER with chest pain. His symptoms have been progressively worse over the last couple of days, and the day he was admitted the patient had severe chest pain across his chest. It was 10 out of 10 in severity. Radiating to the left arm. But not associated with any nausea vomiting or palpitations. Patient was also complaining of some shortness of breath. Patient is maintained normally on lisinopril and nifedipine at home for his hypertension. In the ER, his EKG showed nonspecific ST segment depression that resolved after sublingual nitroglycerin. Troponin was elevated. Patient was seen by cardiology on consultation, and he underwent cardiac catheterization and successful PCI of the mid circumflex with an overlapping 2.518 mm, 2.515 mm xience, and more distal 2.012 mm konstantin drug eluting stent. Patient was transferred to the ICU after his cardiac catheterization, and his chest x-ray showed evidence of mild interstitial edema. We were asked to see him on consultation. Patient is in no distress, he is on 5 L nasal cannula with O2 sat showed 91%. His IV fluids at KVO. Received Lasix last night. Patient was on BiPAP last night with IPAP of 1 4 EPAP of 740% FiO2. Patient is a chronic drinker he drinks on the average of 4-6 beers per day on a daily basis. He is on Valium at 10 mg by mouth twice a day for a long time because of generalized anxiety. Patient is now on the drill into and on aspirin. Chest x-ray again showed very minimal CHF yesterday. Chest x-ray this morning is showing slight improvement of aeration of bilateral lungs with mild persistent pulmonary vascular congestion and interstitial edema Patient was reevaluated today on 03/27/2021, patient remains in the ICU, little anxious, remains on 3 L nasal cannula with O2 sat showed 92%. Chest x-ray continues to show evidence of interstitial edema hence the Lasix dose was increased today to 40 mg IV push twice a day. Patient was seen by cardiology, his ejection fraction is 60-65%, however the patient seems to have significant mitral regurgitation based on physical examination. And I'm wondering if the patient gets into pulmonary edema mostly because of his mitral valve. May require JIL for further evaluation of the mitral valve. This will be decided upon by cardiology. In the meantime I have increased his Lasix. Patient remains on multiple cardiac meds including brilinta. Remains on beta blockers. And on lisinopril. Lasix was increased today. He is 14.9 hemoglobin is 13.6 electrolytes are normal renal profile is normal potassium is a bit low being corrected as per protocol. Reevaluated today on 03/28/2021, patient remains in the ICU, he is being treated for non-ST elevation myocardial infarction and pulmonary edema. Remains on 10 L high flow cannula with O2 sat showed 97%, oxygen is being titrated down. Chest x-ray showed worsening pulmonary edema today, hence I have increased the Lasix to 40 mg IV push every 8 hours. And I have also discussed with the head cager Dr. Teresa to consider JIL on this patient to evaluate his mitral valve. I believe the patient is having intermittent episodes of flash pulmonary edema. And he does have a loud mitral regurgitation murmur. This could be ischemic in nature. At any rate patient is being considered for JIL. In the meantime considering worsening chest x-ray, I'm recommending that he stays in the ICU. Patient is having intermittent episodes of diarrhea, C. difficile screening is p ending. In the meantime we are treating him with Lomotil. Patient has not been on any antibiotics. Patient continues to have intermittent episodes of agitation, tachycardia, diaphoresis, and I believe the patient has more history of alcohol intake then he told us., Remains on CIWA protocol. Reevaluated today on 03/29/2021, patient remains in the ICU, refused to have transesophageal echocardiogram yesterday. Patient is feeling better, breathing easier, chest x-ray continues to show evidence of pulmonary edema, patient had a -1 L in fluid balance over the last 24 hours. Remains on diuretics. Patient remains on the ciwa protocol for alcoholism. And today I plan to transfer the patient out of the ICU to a cardiac floor. WBC count is 14.3 hemoglobin 13.5 lites are normal BUN is 27 creatinine 0.96. Pro-calcitonin is 0.49, hence I will empirically start antibiotics. Although the findings on the chest x-ray are both consistent with pulmonary edema than pneumonia. However Rocephin will be started empirically. Reevaluated today on 03/30/2021, patient remains on 4 L nasal cannula, and his O2 sats is 97%, patient is ALLERGIC to go home, he would like to go and see his head cager in [place], from my perspective a gastric the patient could be switched to oral antibiotics, maintained on diuretics, and if cleared by cardiology , I will clear the patient for discharge. Patient may need home O2 and this could be arranged for if the patient qualifies. In the meantime I would recommend that we continue oral antibiotics, for at least 7 more days, and have follow-up chest x-ray in the next 2 weeks. Reevaluated today on 03/31/2021, patient remains on the cardiac floor, had a bit of shortness of breath earlier today, I was notified about the patient by his nurse, however when I examined the patient this morning he seems to be in no distress. Remains on 4 L nasal cannula with O2 sat from 94%, patient requested cutting down his FiO2 because it is making his nose extremely dry. Patient received more Lasix today, chest x-ray continues to show evidence of bilateral upper lobe infiltrates, possibility of pulmonary edema is a very likely, as a matter of fact I feel it is more likely than pneumonia. Remains empirically on antibiotics, remains on Lasix. WBC count today is 9.5 hemoglobin is 11.8. Left lites are normal renal profile is normal. His pro-calcitonin was borderline elevated hence I recommended antibiotics for presumptive pneumonia involving the right upper lobe and left upper lobe. Clinically again this is felt to be less likely On 04/01/2021 patient seen in follow-up on selective care unit, he is awake and alert, in no acute distress, he is resting comfortably in bed, he is convinced liters of oxygen and pulse ox of 93%, to be breathing comfortably, no dyspnea noted at rest. Complaints of chest pain, he is afebrile, vital signs have been stable. No cough, no congestion, he remains on a combination of azithromycin and Rocephin for possibility of pneumonia. He also remains on diuretics currently on Lasix 40 mg IV every 12 hours. His weight is down by 1.8 kg in the last 24 hours, no lower extremity edema, overall he seems to be breathing much better. Discharge planning is in progress possibly patient will need oxygen. Objective - Vital Signs Vital signs: Vital Signs Temp 98.2 F 04/01/21 08:24 Pulse 101 H 04/01/21 08:24 Resp 16 04/01/21 08:24 BP 119/69 04/01/21 08:24 Pulse Ox 93 L 04/01/21 08:24 Intake & Output 03/31/21 04/01/21 04/01/21 18:59 06:59 18:59 Intake Total 118 Output Total 2 Balance 118 -2 Weight 70.9 kg Intake: Oral 118 Output: Stool 2 Other: Voiding Method Urinal Urinal Urinal # Voids 3 3 1 # Bowel Movements 1 - Exam GENERAL EXAM: Alert, very pleasant, 70-year-old white male, on 2 L of oxygen pulse ox of 93%, comfortable in no apparent distress. HEAD: Normocephalic/atraumatic. EYES: Normal reaction of pupils, equal size. Conjunctiva pink, sclera white. NOSE: Clear with pink turbinates. THROAT: No erythema or exudates. NECK: No masses, no JVD, no thyroid enlargement, no adenopathy. CHEST: No chest wall deformity. Symmetrical expansion. LUNGS: Equal air entry with no crackles, wheeze, rhonchi or dullness. CVS: Regular rate and rhythm, normal S1 and S2, no gallops, no murmurs, no rubs ABDOMEN: Soft, nontender. No hepatosplenomegaly, normal bowel sounds, no guarding or rigidity. EXTREMITIES: No clubbing, no edema, no cyanosis, 2+ pulses and upper and lower extremities. MUSCULOSKELETAL: Muscle strength and tone normal. SPINE: No scoliosis or deformity SKIN: No rashes CENTRAL NERVOUS SYSTEM: Alert and oriented -3. No focal deficits, tone is normal in all 4 extremities. PSYCHIATRIC: Alert and oriented -3. Appropriate affect. Intact judgment and insight. - Labs CBC & Chem 7: 04/01/21 07:08 04/01/21 07:08 Labs: Abnormal Lab Results - Last 24 Hours (Table) 04/01/21 04/01/21 Range/Units 07:08 07:08 RBC 3.65 L (4.30-5.90) m/uL Hgb 11.8 L (13.0-17.5) gm/dL Hct 35.1 L (39.0-53.0) % Neutrophils # 8.3 H (1.3-7.7) k/uL Lymphocytes # 0.9 L (1.0-4.8) k/uL Sodium 135 L (137-145) mmol/L Potassium 3.0 L (3.5-5.1) mmol/L Chloride 97 L (98-107) mmol/L Glucose 172 H (74-99) mg/dL Assessment and Plan Plan: Assessment: #1. Acute non-ST elevated myocardial infarction, status post cardiac catheterization and PCI #2. Acute diastolic congestive heart failure #3. Mitral valve disease with significant mitral valve regurgitation #4. Acute hypoxic respiratory failure secondary to CHF and possibility of pneumonia #5. Benign essential hypertension #6. History of alcoholism #7. Generalized anxiety disorder #8. Lifelong nonsmoker Plan: Continue current medical treatment Continue antibiotics Continue Lasix per cardiology and medical team Patient will likely need home oxygen Obtain home oxygen assessment Stable for discharge home from pulmonary perspective as well as been cleared by cardiology and medical team I performed a history & physical examination of the patient and discussed their management with my nurse practitioner, Kaye Higgins. I reviewed the nurse practitioner's note and agree with the documented findings and plan of care. Lung sounds are positive for diffuse wheezes throughout the lung [place]. The findings and the impression was discussed with the patient. I attest to the documentation by the nurse practitioner. Time with Patient: Less than 30
[2021-04-01] MEDS: FUROSEMIDE 10 MG/ML 4 ML VIAL IV SCH (12:50)
--- NOTE | 2021-04-01 15:03 | P.PN ---
Subjective Progress Note Date: 04/01/21 (delayed charting seen at 1230) Principal diagnosis: chest pain Patient is a 70-year-old male with a history of pneumonia, hypertension, and marijuana use who presented to the emergency room with complaints of chest pain. He ultimately was found have a non-ST segment elevated myocardial infarction and he underwent cardiac cath with successful PCI of the mid circumflex. He was done Pulmonary edema was subsequently started on Lasix. He developed significant respiratory distress postcatheterization requiring BiPAP therapy. He also developed some hypotension. Pulmonology was consulted. He underwent an echocardiogram which showed preserved ejection fraction but did demonstrate some mitral valve disease, which appeared to be significant on clinical examination. Patient did not want to undergo a JIL in [place] and has deferred this to [place] where he lives. By 03/28 he was able to be decreased a high flow nasal cannula. Patient seen and examined at bedside. He has no respiratory back to [place]. He is still feeling quite winded and dyspneic. He is having some issues walking to the bathroom. He denies any overt chest pain, no nausea or vomiting. We had a long discussion about how to get him to return to [place]. He is aware that he will need a JIL when he goes there to further assess his mitral valve that he does not want this done at this time. He had slow improvement in his oxygen requirements. Patient seen and examined at bedside. No chest pain, breathing better, did ambulate to [facility] today. General: non toxic, no distress, appears at stated age Derm: warm, dry Head: atraumatic, normocephalic, symmetric Eyes: EOMI, no lid lag, anicteric sclera Mouth: no lip lesion, mucus membranes dry Cardiovascular: S1S2 reg, with grade 3 diastolic murmur, positive posterior tibial pulse bilateral, Lungs: Rhonchi bilateral, no accessory muscle use, no conversational dyspnea Abdominal: soft, nontender to palpation, no guarding, no appreciable organomegaly Ext: no gross muscle atrophy, trace edema, no contractures Neuro: CN II-XI grossly intact, no focal neuro deficits Psych: Alert, oriented, appropriate affect Assessment: Non-ST segment elevated myocardial infarction status post PCI to the left circumflex Acute diastolic congestive heart failure with ejection fraction 60-65% Probable community-acquired pneumonia Acute hypoxic respiratory failure requiring BiPAP, improving Triple-vessel coronary artery disease, patient is not interested in pursuing CABG evaluation at this time Essential hypertension Dyslipidemia EtOH misuse Mitral valve disease Pharangitis Plan: -Continue with aspirin, Brillenta, Lipitor -Continue with lisinopril, Lasix, and metoprolol -Continue with Rocephin and Zithromax. transition to oral antibiotics to complete a 7 day course on discharge. -Patient cannot be discharged unless not requiring oxygen as we're unable to obtain this through his insurance which is [place] of [place] at this time. Will am bulate today and likely discharge in [place] -Cepacol and Tessalon secondary to sore throat with cough -Covid testing was negative -Patient is aware that he will need quick follow-up with his primary care justin garcia and establish with a marine engine mechanic on return to [place]. He was reminded of the importance of following up on his mitral valve disease. -Continue with Valium as needed for anxiety and home chronic pain medications. Anticipate D/C on Friday when case management can look into Oxygen option as could not find supplier for his out of state insurance. Objective - Vital Signs Vital signs: Vital Signs Temp 98.2 F 04/01/21 08:24 Pulse 101 H 04/01/21 08:24 Resp 16 04/01/21 08:24 BP 119/69 04/01/21 08:24 Pulse Ox 93 L 04/01/21 13:18 Intake & Output 03/31/21 04/01/21 04/01/21 18:59 06:59 18:59 Intake Total 118 118 Output Total 2 Balance 118 -2 118 Weight 70.9 kg Intake: Oral 118 118 Output: Stool 2 Other: Voiding Method Urinal Urinal Urinal # Voids 3 3 1 # Bowel Movements 1 - Labs CBC & Chem 7: 04/01/21 07:08 04/01/21 07:08 Labs: Abnormal Lab Results - Last 24 Hours (Table) 04/01/21 04/01/21 Range/Units 07:08 07:08 RBC 3.65 L (4.30-5.90) m/uL Hgb 11.8 L (13.0-17.5) gm/dL Hct 35.1 L (39.0-53.0) % Neutrophils # 8.3 H (1.3-7.7) k/uL Lymphocytes # 0.9 L (1.0-4.8) k/uL Sodium 135 L (137-145) mmol/L Potassium 3.0 L (3.5-5.1) mmol/L Chloride 97 L (98-107) mmol/L Glucose 172 H (74-99) mg/dL
[2021-04-01] MEDS ORDERED: CALCIUM CARBONATE 500 MG CHEWABLE PO PRN (16:33)
[2021-04-01] MEDS: IPRATROPIUM-ALBUTEROL 3 ML NEB INHALATION PRN (20:16)
[2021-04-01] MEDS ORDERED: FUROSEMIDE 10 MG/ML 2 ML VIAL IV STA (23:45)
[2021-04-01] MEDS ORDERED: IPRATROPIUM-ALBUTEROL 3 ML NEB INHALATION STA (23:45)
[2021-04-01] MEDS ORDERED: POTASSIUM CHLORIDE ER 20 MEQ TAB.ER PO STA (23:48)
[2021-04-02] MEDS ORDERED: QUEtiapine 25 MG TAB PO STA (00:39)
[2021-04-02] MEDS: IPRATROPIUM-ALBUTEROL 3 ML NEB INHALATION PRN (03:16)
[2021-04-02 03:39] LABS: ABG Base Excess 2.6 mmol/L; ABG HCO3 26 mmol/L (21-25); ABG Oxygen Saturation 96.9 % (94-97); ABG PCO2 36 mmHg (35-45); ABG PH 7.47 (7.35-7.45); ABG PO2 86 mmHg (83-108); ABG TCO2 27 mmol/L (19-24); Allen Test Performed? Yes
[2021-04-02 04:06] LABS: Basophils % (A) 0 %; Eosinophils # (A) 0.2 k/uL (0-0.7); Eosinophils % (A) 2 %; HCT 38.2 % (39.0-53.0); Lymphocytes # (A) 0.8 k/uL (1.0-4.8); Lymphocytes % (A) 7 %; MCV 96.9 fL (80.0-100.0); Mean Platelet Volume 7.2; Monocytes # (A) 0.6 k/uL (0-1.0); Monocytes % (A) 6 %; Neutrophils # (A) 9.4 k/uL (1.3-7.7); Neutrophils % (A) 83 %; Platelet Count 356 k/uL (150-450); RBC 3.94 m/uL (4.30-5.90); RDW 12.9 % (11.5-15.5); WBC 11.3 k/uL (3.8-10.6)
[2021-04-02 04:17] LABS: ALT 126 U/L (4-49); AST 111 U/L (17-59); African American GFR (CKD) >90 (>60 ml/min/1.73 sqM); Albumin 3.5 g/dL (3.5-5.0); Alkaline Phosphatase 217 U/L (38-126); Anion Gap 13 mmol/L; Blood Urea Nitrogen 19 mg/dL (9-20); Calcium 8.8 mg/dL (8.4-10.2); Carbon Dioxide 24 mmol/L (22-30); Chloride 99 mmol/L (98-107); Glucose 128 mg/dL (74-99); Non-African American GFR(CKD) >90 (>60 ml/min/1.73 sqM); Potassium 3.6 mmol/L (3.5-5.1); Sodium 136 mmol/L (137-145); Total Bilirubin 1.8 mg/dL (0.2-1.3); Total Protein 6.5 g/dL (6.3-8.2)
--- NOTE | 2021-04-02 04:45 | P.EN ---
04/01 2330 patient was evaluated multiple times throughout the night. initially notified by RN that patient is becoming more confused , having difficulty breathing and abd pain with hard tender abd. upon evaluation , he was found to be doing better, he was alert oriented to time place and person with some encouragement at times. he denies any acute complaints. he just showed frustration regarding staying in the hospital as he wants to go back home to [place]. his exam showed stable vital signs , with oxygen sat 94% on 2 L NC. blood pressure and heart rate unremarkable. abd was soft , bowel soounds positive no tenderness, lung exam showed some expiratory wheezing and bilateral basilar rales at the time around 2330 plan at that time to continue current care , and to continue to monitor duoneb and one dose of lasix IV 20 mg labs reviewed from this morning , and were unremarkable except for low potassium otherwise , stable then at around 1240 04/02, patient became more combative, trying to take off clothes and pulling his monitors. again vital signs and exam were stable patient was given one time dose of seroquel 25 mg orally then around 3 am , RN requested another evaluation , due to increase oxygen requirement , and patient seems to have some labored breathing , he is more confused now , and not making any sense, he follows simple commands though. upon evaluating he was this time on 6 L oxygen through NC. and look slightly diaphoretic , he was grimicing this time to abd exam this time ABG was done , which showed PH 7.47 PCO2 36, oxygen 86 on 6 L NC, bicarb 26 patient placed on bipap to support oxygenation blood work done , showed increase WBC (patient has been on ABx for pneumonia and his WBC has normalized earlier) new elevated liver enzymes plan switched antibiotics to cefepime and flagyl to cover possible abd source like acute nicki check liver US check LA, lipase and ammonia level continue with supportive care Total amount of critical care time spent was 80 minutes not counting procedures performed.
[2021-04-02 05:16] LABS: Lactic Acid, Venous 1.1 mmol/L (0.7-2.0)
[2021-04-02] MEDS: CEFEPIME 2 GM in SODIUM CHLORIDE 0.9% 100 ML IVPB SCH ×3 (07:38→20:45)
[2021-04-02] MEDS: THIAMINE 100 MG TAB PO SCH ×2 (07:41→16:57)
[2021-04-02] MEDS: metroNIDAZOLE-NS PMX 500 MG in SALINE 1 100ML.BAG IVPB SCH ×3 (07:41→20:41)
[2021-04-02] MEDS: PANTOPRAZOLE 40 MG TABLET PO SCH ×2 (07:41→16:57)
--- NOTE | 2021-04-02 08:23 | XR ---
EXAMINATION TYPE: XR chest 1V portable DATE OF EXAM: 04/02/2021 COMPARISON: NONE HISTORY: 03/31/2021 TECHNIQUE: Single frontal view of the chest is obtained. FINDINGS: Upper lobe predominant patchy airspace disease bilaterally has slightly improved. Cardiac silhouette is not enlarged. IMPRESSION: Upper lobe predominant patchy airspace disease bilaterally has slightly improved.
[2021-04-02] MEDS: diazePAM 5 MG TAB PO PRN ×2 (08:57→23:06)
[2021-04-02] MEDS ORDERED: LORazepam 2 MG/ML INJ IV PRN ×3 (09:07)
--- NOTE | 2021-04-02 09:19 | US ---
EXAMINATION TYPE: US liver DATE OF EXAM: 04/02/2021 COMPARISON: NONE CLINICAL HISTORY: elevated liver enzymes. Abnormal labs Patient was combative and refused exam half way through the scan EXAM MEASUREMENTS: Liver Length: 14.0 cm Pancreas: Echogenic in appearance Liver: wnl Gallbladder: Not visualized due to patient stopping exam CBD: Not visualized due to patient stopping exam Right Kidney: Not visualized due to patient stopping exam IMPRESSION: Markedly limited examination due to combative patient who refused continuing mid exam. Liver is heterogeneous and slightly echogenic which is nonspecific but most likely due to hepatic mario alberto atosis. Please correlate clinically.
--- NOTE | 2021-04-02 10:28 | P.PN ---
Subjective Progress Note Date: 04/02/21 Principal diagnosis: chest pain Patient is a 70-year-old male with a history of pneumonia, hypertension, and marijuana use who presented to the emergency room with complaints of chest pain. He ultimately was found have a non-ST segment elevated myocardial infarction an d he underwent cardiac cath with successful PCI of the mid circumflex. He was done Pulmonary edema was subsequently started on Lasix. He developed significant respiratory distress postcatheterization requiring BiPAP therapy. He also developed some hypotension. Pulmonology was consulted. He underwent an echocardiogram which showed preserved ejection fraction but did demonstrate some mitral valve disease, which appeared to be significant on clinical examination. Patient did not want to undergo a JIL in [place] and has deferred this to [place] where he lives. By 03/28 he was able to be decreased a high flow nasal cannula. Patient seen and examined at bedside. He has no respiratory back to [place]. He is still feeling quite winded and dyspneic. He is having some issues walking to the bathroom. He denies any overt chest pain, no nausea or vomiting. We had a long discussion about how to get him to return to [place]. He is aware that he will need a JIL when he goes there to further assess his mitral valve that he does not want this done at this time. He had slow improvement in his oxygen requirements. He was ding well the morning of 04/01 and was able to come off oxygen. The afternoon he developed some nausea. He was started on tums and protonix increased. He then developed worsening confusion and hypoxia overnight on blood work showed elevated liver enzymes and increasing leukocytosis. Patient seen and examined at bedside. Confused as to why he is in the hospital, but is aware of hospital, state and year. Denies abdominal pain. No shortness of breath. Wants to speak with his brother. General: non toxic, no distress, appears at stated age Derm: warm, dry Head: atraumatic, normocephalic, symmetric Eyes: EOMI, no lid lag, anicteric sclera Mouth: no lip lesion, mucus membranes dry Cardiovascular: S1S2 reg, with grade 3 diastolic murmur, positive posterior tibi al pulse bilateral, Lungs: Rhonchi bilateral, no accessory muscle use, no conversational dyspnea Abdominal: soft, nontender to palpation, no guarding, no appreciable organomegaly Ext: no gross muscle atrophy, trace edema, no contractures Neuro: CN II-XI grossly intact, no focal neuro deficits Psych: Alert, oriented, appropriate affect Assessment: Elevated liver enzymes- await liver US, repeat in AM Acute encephalopathy - likely due to ETOH withdrawal vs due to infection - encourage orientation - supportive care - restart [facility] Non-ST segment elevated myocardial infarction status post PCI to the left circumflex Triple-vessel coronary artery disease, patient is not interested in pursuing CABG evaluation at this time Essential hypertension Dyslipidemia Mitral valve disease -Continue with aspirin, Brillenta, Lipitor -Patient is aware that he will need quick follow-up with his primary care physician and establish with a blast setter on return to [place]. He was reminded of the importance of following up on his mitral valve disease. Acute diastolic congestive heart failure with ejection fraction 60-65%-Continue with lisinopril, Lasix, and metoprolol Probable community-acquired pneumonia-Continue with Rocephin and Zithromax. transition to oral antibiotics to complete a 7 day course on discharge.Covid testing was negative Acute hypoxic respiratory failure requiring BiPAP- treatment of PNA and diuresis EtOH misuse- [facility] protocol Pharangitis Objective - Vital Signs Vital signs: Vital Signs Temp 98.2 F 04/01/21 08:24 Pulse 73 04/02/21 04:00 Resp 24 04/02/21 04:00 BP 110/55 04/02/21 04:00 Pulse Ox 98 04/02/21 04:00 Intake & Output 04/01/21 04/02/21 04/02/21 18:59 06:59 18:59 Intake Total 118 Output Total 1 Balance 118 -1 Intake: Oral 118 Output: Stool 1 Other: Voiding Method Urinal Urinal # Voids 0 # Bowel Movements 1 - Labs CBC & Chem 7: 04/02/21 03:53 04/02/21 03:53 Labs: Abnormal Lab Results - Last 24 Hours (Table) 04/02/21 04/02/21 04/02/21 Range/Units 03:36 03:53 03:53 WBC 11.3 H (3.8-10.6) k/uL RBC 3.94 L (4.30-5.90) m/uL Hct 38.2 L (39.0-53.0) % Neutrophils # 9.4 H (1.3-7.7) k/uL Lymphocytes # 0.8 L (1.0-4.8) k/uL ABG pH 7.47 H (7.35-7.45) ABG HCO3 26 H (21-25) mmol/L ABG Total CO2 27 H (19-24) mmol/L Sodium 136 L (137-145) mmol/L Glucose 128 H (74-99) mg/dL Total Bilirubin 1.8 H (0.2-1.3) mg/dL AST 111 H (17-59) U/L ALT 126 H (4-49) U/L Alkaline Phosphatase 217 H (38-126) U/L Lipase (23-300) U/L 04/02/21 Range/Units 04:41 WBC (3.8-10.6) k/uL RBC (4.30-5.90) m/uL Hct (39.0-53.0) % Neutrophils # (1.3-7.7) k/uL Lymphocytes # (1.0-4.8) k/uL ABG pH (7.35-7.45) ABG HCO3 (21-25) mmol/L ABG Total CO2 (19-24) mmol/L Sodium (137-145) mmol/L Glucose (74-99) mg/dL Total Bilirubin (0.2-1.3) mg/dL AST (17-59) U/L ALT (4-49) U/L Alkaline Phosphatase (38-126) U/L Lipase 374 H (23-300) U/L
--- NOTE | 2021-04-02 11:17 | P.PN ---
Subjective Progress Note Date: 04/02/21 Principal diagnosis: Acute non-ST elevated myocardial infarction This is a 70-year-old white male, known history of hypertension, no previous history of documented coronary artery disease, patient presented to the ER with chest pain. His symptoms have been progressively worse over the last couple of days, and the day he was admitted the patient had severe chest pain across his chest. It was 10 out of 10 in severity. Radiating to the left arm. But not associated with any nausea vomiting or palpitations. Patient was also complaining of some shortness of breath. Patient is maintained normally on lisinopril and nifedipine at home for his hypertension. In the ER, his EKG showed nonspecific ST segment depression that resolved after sublingual nitroglycerin. Troponin was elevated. Patient was seen by cardiology on consultation, and he underwent cardiac catheterization and successful PCI of the mid circumflex with an overlapping 2.518 mm, 2.515 mm xience, and more distal 2.012 mm konstantin drug eluting stent. Patient was transferred to the ICU after his cardiac catheterization, and his chest x-ray showed evidence of mild interstitial edema. We were asked to see him on consultation. Patient is in no distress, he is on 5 L nasal cannula with O2 sat showed 91%. His IV fluids at KVO. Received Lasix last night. Patient was on BiPAP last night with IPAP of 1 4 EPAP of 740% FiO2. Patient is a chronic drinker he drinks on the average of 4-6 beers per day on a daily basis. He is on Valium at 10 mg by mouth twice a day for a long time because of generalized anxiety. Patient is now on the drill into and on aspirin. Chest x-ray again showed very minimal CHF yesterday. Chest x-ray this morning is showing slight improvement of aeration of bilateral lungs with mild persistent pulmonary vascular congestion and interstitial edema Patient was reevaluated today on 03/27/2021, patient remains in the ICU, little anxious, remains on 3 L nasal cannula with O2 sat showed 92%. Chest x-ray continues to show evidence of interstitial edema hence the Lasix dose was increased today to 40 mg IV push twice a day. Patient was seen by cardiology, his ejection fraction is 60-65%, however the patient seems to have significant mitral regurgitation based on physical examination. And I'm wondering if the patient gets into pulmonary edema mostly because of his mitral valve. May require JIL for further evaluation of the mitral valve. This will be decided upon by cardiology. In the meantime I have increased his Lasix. Patient remains on multiple cardiac meds including brilinta. Remains on beta blockers. And on lisinopril. Lasix was increased today. He is 14.9 hemoglobin is 13.6 electrolytes are normal renal profile is normal potassium is a bit low being corrected as per protocol. Reevaluated today on 03/28/2021, patient remains in the ICU, he is being treated for non-ST elevation myocardial infarction and pulmonary edema. Remains on 10 L high flow cannula with O2 sat showed 97%, oxygen is being titrated down. Chest x-ray showed worsening pulmonary edema today, hence I have increased the Lasix to 40 mg IV push every 8 hours. And I have also discussed with the sales and marketing manager Dr. Teresa to consider JIL on this patient to evaluate his mitral valve. I believe the patient is having intermittent episodes of flash pulmonary edema. And he does have a loud mitral regurgitation murmur. This could be ischemic in nature. At any rate patient is being considered for JIL. In the meantime considering worsening chest x-ray, I'm recommending that he stays in the ICU. Patient is having intermittent episodes of diarrhea, C. difficile screening is p ending. In the meantime we are treating him with Lomotil. Patient has not been on any antibiotics. Patient continues to have intermittent episodes of agitation, tachycardia, diaphoresis, and I believe the patient has more history of alcohol intake then he told us., Remains on CIWA protocol. Reevaluated today on 03/29/2021, patient remains in the ICU, refused to have transesophageal echocardiogram yesterday. Patient is feeling better, breathing easier, chest x-ray continues to show evidence of pulmonary edema, patient had a -1 L in fluid balance over the last 24 hours. Remains on diuretics. Patient remains on the ciwa protocol for alcoholism. And today I plan to transfer the patient out of the ICU to a cardiac floor. WBC count is 14.3 hemoglobin 13.5 lites are normal BUN is 27 creatinine 0.96. Pro-calcitonin is 0.49, hence I will empirically start antibiotics. Although the findings on the chest x-ray are both consistent with pulmonary edema than pneumonia. However Rocephin will be started empirically. Reevaluated today on 03/30/2021, patient remains on 4 L nasal cannula, and his O2 sats is 97%, patient is ALLERGIC to go home, he would like to go and see his sales and marketing manager in [place], from my perspective a gastric the patient could be switched to oral antibiotics, maintained on diuretics, and if cleared by cardiology , I will clear the patient for discharge. Patient may need home O2 and this could be arranged for if the patient qualifies. In the meantime I would recommend that we continue oral antibiotics, for at least 7 more days, and have follow-up chest x-ray in the next 2 weeks. Reevaluated today on 03/31/2021, patient remains on the cardiac floor, had a bit of shortness of breath earlier today, I was notified about the patient by his nurse, however when I examined the patient this morning he seems to be in no distress. Remains on 4 L nasal cannula with O2 sat from 94%, patient requested cutting down his FiO2 because it is making his nose extremely dry. Patient received more Lasix today, chest x-ray continues to show evidence of bilateral upper lobe infiltrates, possibility of pulmonary edema is a very likely, as a matter of fact I feel it is more likely than pneumonia. Remains empirically on antibiotics, remains on Lasix. WBC count today is 9.5 hemoglobin is 11.8. Left lites are normal renal profile is normal. His pro-calcitonin was borderline elevated hence I recommended antibiotics for presumptive pneumonia involving the right upper lobe and left upper lobe. Clinically again this is felt to be less likely On 04/01/2021 patient seen in follow-up on selective care unit, he is awake and alert, in no acute distress, he is resting comfortably in bed, he is convinced liters of oxygen and pulse ox of 93%, to be breathing comfortably, no dyspnea noted at rest. Complaints of chest pain, he is afebrile, vital signs have been stable. No cough, no congestion, he remains on a combination of azithromycin and Rocephin for possibility of pneumonia. He also remains on diuretics currently on Lasix 40 mg IV every 12 hours. His weight is down by 1.8 kg in the last 24 hours, no lower extremity edema, overall he seems to be breathing much better. Discharge planning is in progress possibly patient will need oxygen. On 04/02/2021 patient seen in follow-up. Patient is currently on BiPAP with pressures of 10 and 5 and FiO2 of 30%. There is a public safety director at the bedside. Apparently patient got very confused this morning, he took off his BiPAP mask, he was extremely short of breath, and he tried to ambulate to the bathroom by himself. He was assisted back to bed, he was placed on BiPAP support, pulse ox is 98%. His chest x-ray today shows upper lobe predominant patchy airspace disease, with slight improvement. He remains on azithromycin and cefepime for possibility of pneumonia, he is on the daily dose of Lasix, he did receive IV Lasix 20 mg last night. His statins have been placed on hold in view of elevated liver enzymes. Response team was called to the bedside last night sent of increasing confusion, and patient was apparently becoming combative. Trying to take his clothes off and Pulmicort off the monitors. he was started on Seroquel 25 mg daily. His liver ultrasound was completed today showing liver within normal limits, gallbladder was not visualized, this was a difficult exam as the patient was that of an refusing exam snf through the scan. Today's labs have been reviewed. In addition patient was started on Valium for possibility of acute EtOH withdrawal. Ammonia level was less than 9, AST was 111, ALT is 126, and alkaline phosphatase was 217. Lipase was 374. Objective - Vital Signs Vital signs: Vital Signs Temp 98.2 F 04/01/21 08:24 Pulse 73 04/02/21 04:00 Resp 24 04/02/21 04:00 BP 110/55 04/02/21 04:00 Pulse Ox 98 04/02/21 04:00 Intake & Output 04/01/21 04/02/21 04/02/21 18:59 06:59 18:59 Intake Total 118 Output Total 1 Balance 118 -1 Intake: Oral 118 Output: Stool 1 Other: Voiding Method Urinal Urinal # Voids 0 # Bowel Movements 1 - Exam GENERAL EXAM: Alert, confused, 70-year-old white male, on BiPAP support with pressures of 10 and 5 and FiO2 of 30% HEAD: Normocephalic/atraumatic. EYES: Normal reaction of pupils, equal size. Conjunctiva pink, sclera white. NOSE: Clear with pink turbinates. THROAT: No erythema or exudates. NECK: No masses, no JVD, no thyroid enlargement, no adenopathy. CHEST: No chest wall deformity. Symmetrical expansion. LUNGS: Equal air entry with no crackles, wheeze, rhonchi or dullness. CVS: Regular rate and rhythm, normal S1 and S2, no gallops, no murmurs, no rubs ABDOMEN: Soft, nontender. No hepatosplenomegaly, normal bowel sounds, no guarding or rigidity. EXTREMITIES: No clubbing, no edema, no cyanosis, 2+ pulses and upper and lower extremities. MUSCULOSKELETAL: Muscle strength and tone normal. SPINE: No scoliosis or deformity SKIN: No rashes CENTRAL NERVOUS SYSTEM: Alert and oriented -2. No focal deficits, tone is normal in all 4 extremities. PSYCHIATRIC: Alert and oriented -2. Confused, combative and agitated at times - Labs CBC & Chem 7: 04/02/21 03:53 04/02/21 03:53 Labs: Abnormal Lab Results - Last 24 Hours (Table) 04/02/21 04/02/21 04/02/21 Range/Units 03:36 03:53 03:53 WBC 11.3 H (3.8-10.6) k/uL RBC 3.94 L (4.30-5.90) m/uL Hct 38.2 L (39.0-53.0) % Neutrophils # 9.4 H (1.3-7.7) k/uL Lymphocytes # 0.8 L (1.0-4.8) k/uL ABG pH 7.47 H (7.35-7.45) ABG HCO3 26 H (21-25) mmol/L ABG Total CO2 27 H (19-24) mmol/L Sodium 136 L (137-145) mmol/L Glucose 128 H (74-99) mg/dL Total Bilirubin 1.8 H (0.2-1.3) mg/dL AST 111 H (17-59) U/L ALT 126 H (4-49) U/L Alkaline Phosphatase 217 H (38-126) U/L Lipase (23-300) U/L 04/02/21 Range/Units 04:41 WBC (3.8-10.6) k/uL RBC (4.30-5.90) m/uL Hct (39.0-53.0) % Neutrophils # (1.3-7.7) k/uL Lymphocytes # (1.0-4.8) k/uL ABG pH (7.35-7.45) ABG HCO3 (21-25) mmol/L ABG Total CO2 (19-24) mmol/L Sodium (137-145) mmol/L Glucose (74-99) mg/dL Total Bilirubin (0.2-1.3) mg/dL AST (17-59) U/L ALT (4-49) U/L Alkaline Phosphatase (38-126) U/L Lipase 374 H (23-300) U/L Assessment and Plan Plan: Assessment: #1. Acute non-ST elevated myocardial infarction, status post cardiac ca theterization and PCI #2. Acute diastolic congestive heart failure #3. Mitral valve disease with significant mitral valve regurgitation #4. Acute hypoxic respiratory failure secondary to CHF and possibility of pneumonia #5. Benign essential hypertension #6. History of alcoholism #7. Generalized anxiety disorder #8. Lifelong nonsmoker #9. Altered mental status, related to acute metabolic encephalopathy, multifactorial, related to acute hypoxic respiratory failure, acute EtOH withd devonte, and possibly secondary to pneumonia Plan: Continue BiPAP support Continue current antibiotics Continue Lasix Chest x-ray reviewed, labs reviewed Continue Seroquel Ultrasound of the liver reviewed Maintaining safety precautions Continue breathing treatments I performed a history & physical examination of the patient and discussed their management with my nurse practitioner, Kaye Higgins. I reviewed the nurse practitioner's note and agree with the documented findings and plan of care. Lung sounds are positive for diffuse wheezes throughout the lung [place]. The findings and the impression was discussed with the patient. I attest to the documentation by the nurse practitioner. Time with Patient: Less than 30
[2021-04-02] MEDS: TICAGRELOR 90 MG TAB PO SCH ×2 (11:22→20:43)
[2021-04-02] MEDS: AZITHROMYCIN 500 MG TAB PO SCH (11:22)
[2021-04-02] MEDS: ASPIRIN 81 MG PO SCH (11:22)
[2021-04-02] MEDS: FUROSEMIDE 40 MG TAB PO SCH (11:22)
[2021-04-02] MEDS: MULTIVITAMINS, THERA 1 EACH TAB PO SCH (11:22)
[2021-04-02] MEDS: lisinopriL 5 MG TAB PO SCH (11:23)
--- NOTE | 2021-04-02 12:37 | P.PN ---
Subjective This is a 70-year-old male with history of hypertension. He does not follow with a chromosomal disorders counselor. He is visiting his brother, he is from [place]. He presented emergency department on 03/25/2021 with complaints of chest pain. EKG on admission revealed sinus rhythm with ST depressions. He underwent cardiac catheterization with Dr. Tam on 03/25 which revealed 30-40% heavily calcified left main, diffuse LAD calcification, 40-50% ostial LAD, mid diffuse 60% LAD stenosis, diffuse circumflex 50-60% stenosis and more focal 95% stenosis with extensive [id number] collaterals with the RCA CORRECTIVE AND MANUAL ARTS THERAPIST. Patient underwent PCI x 3 of mid circumflex by Dr. Majano. Patient also had some respiratory insufficiency with LVEDP noted to be elevated, IV lasix was given, patient was placed on BIPAP with improvement. 03/26- Patient was on BiPAP, having difficulty weaning due to bradycardia HR down to the 20-30s when BIPAP removed overnight, he recovered when BIPAP was placed back on. Echocardiogram revealed EF of 60-65%, RV is mildly enlarged, mild aortic valve sclerosis, mild mitral regurgitation, mild prolapse of the posterior mitral valve leaflet, mild tricuspid regurgitation, moderate pulmonary hypertension with an RVSP 49 mmHg. 04/02/2021: Patient seen and examined at bedside. Apparently patient had increased confusion this morning when Liver ultrasound was being completed. He also was hypoxic. He was placed on BIPAP. Per nursing he is also having urinary retention. Telemetry reviewed, patient is in sinus mechansim occasionally bradycardic overnight 40s but HR 80s-low 100s. Patient currently maintained on aspirin 81 mg daily, Lasix PO 40mg daily, Brilinta 90 mg twice a day, lisinopril 5mg daily,metoprolol succinate 50mg daily. Laboratory data reviewed, WBC 7.3, hemoglobin 13, platelets 356, sodium 136, potassium 3.6, BUN 19, serum cre atinine 0.66, T bili 1.8, AST 111, ALT 126, Lipase 374, Alkaline phosphatase 217. Liver ultrasound- Limited due to competitive patient refused mid exam, liver is heterogeneous and slightly echogenic most likely hepatic steatosis Chest x-ray upper lobe predominant patchy airspace disease bilaterally has slightly improved GENERAL: On BIPAP NECK: Supple, no JVD LUNGS: Breath sounds diminished to auscultation bilaterally, mild crackles in bases. Respiration equal and unlabored. HEART: Regular rate and rhythm, Systolic murmur heard at right sternal border and at apex, S1 and S2 heard. EXTREMITIES: Normal range of motion. Trace bilateral edema. No clubbing or cyanosis. Peripheral pulses intact. Right femoral cath site clean dry intact, no hematoma, 2+ peripheral pulses NEURO: confused, alert and oriented to person and place and time. ASSESSMENT: NSTEMI s/p PCI circumflex on 03/25/2021 Acute encephalopathy Elevated liver enzymes History of hypertension Dyslipidemia Elevated LVEDP Acute hypoxic respiratory failure requiring BiPAP post left heart catheterization Pulmonary Hypertension Pneumonia Mitral Regurgitation Hypokalemia ETOH abuse PLAN: Metoprolol succinate 50mg BID Continue lisinopril to 5mg daily Patient does not want to proceed with JIL at this time. Continue dual antiplatelet therapy with aspirin and Brilinta Statin held due to elevated liver enzymes Continue to monitor renal function and electrolytes Recheck proBNP tomorrow ,morning Further recommendations pending clinical course Objective - Vital Signs Vital signs: Vital Signs Temp 98.3 F 04/02/21 08:00 Pulse 86 04/02/21 08:00 Resp 22 04/02/21 08:00 BP 123/74 04/02/21 08:00 Pulse Ox 86 L 04/02/21 08:00 Intake & Output 04/01/21 04/02/21 04/02/21 18:59 06:59 18:59 Intake Total 118 Output Total 1 Balance 118 -1 Intake: Oral 118 Output: Stool 1 Other: Voiding Method Urinal Urinal # Voids 0 1 # Bowel Movements 1 - Labs CBC & Chem 7: 04/02/21 03:53 04/02/21 03:53 Labs: Abnormal Lab Results - Last 24 Hours (Table) 04/02/21 04/02/21 04/02/21 Range/Units 03:36 03:53 03:53 WBC 11.3 H (3.8-10.6) k/uL RBC 3.94 L (4.30-5.90) m/uL Hct 38.2 L (39.0-53.0) % Neutrophils # 9.4 H (1.3-7.7) k/uL Lymphocytes # 0.8 L (1.0-4.8) k/uL ABG pH 7.47 H (7.35-7.45) ABG HCO3 26 H (21-25) mmol/L ABG Total CO2 27 H (19-24) mmol/L Sodium 136 L (137-145) mmol/L Glucose 128 H (74-99) mg/dL Total Bilirubin 1.8 H (0.2-1.3) mg/dL AST 111 H (17-59) U/L ALT 126 H (4-49) U/L Alkaline Phosphatase 217 H (38-126) U/L Lipase (23-300) U/L 04/02/21 Range/Units 04:41 WBC (3.8-10.6) k/uL RBC (4.30-5.90) m/uL Hct (39.0-53.0) % Neutrophils # (1.3-7.7) k/uL Lymphocytes # (1.0-4.8) k/uL ABG pH (7.35-7.45) ABG HCO3 (21-25) mmol/L ABG Total CO2 (19-24) mmol/L Sodium (137-145) mmol/L Glucose (74-99) mg/dL Total Bilirubin (0.2-1.3) mg/dL AST (17-59) U/L ALT (4-49) U/L Alkaline Phosphatase (38-126) U/L Lipase 374 H (23-300) U/L
--- NOTE | 2021-04-02 19:51 | CT ---
EXAMINATION TYPE: CT abdomen pelvis wo con DATE OF EXAM: 04/02/2021 COMPARISON: None HISTORY: PAIN CT DLP: 494.3 mGycm Automated exposure control for dose reduction was used. Images obtained from the diaphragm to the floor the pelvis with no contrast. There is bilateral pleural effusions. There is some mild interstitial infiltrate at the lung bases wi th atelectasis. There is no pericardial effusion. Liver is intact. Gallbladder is intact. Spleen and stomach appear intact. The bile ducts are not dila edvin. There is no evidence of pancreatic mass. There is probably a 2 cm diverticulum of the second par t of the duodenum. There is no adrenal mass. Kidneys have normal size. There is no hydronephrosis. Ureters are not dilat ed. There is no retroperitoneal adenopathy. Abdominal aorta is atheromatous. There is atherosclerotic vascular calcification. Bladder distends smoothly. There is no inguinal hernia. There is no free flu id in the pelvis. There are multiple sigmoid diverticula. I see no sign of diverticulitis. Appendix i s posterior and appears normal. The lumbar vertebra have normal spacing and alignment. There is no compression fracture. The bony pel vis is intact. Hip joints are intact. There is no hip dysplasia. IMPRESSION: There is some colonic diverticulosis without diverticulitis. No dilated ducts. Gallbladder has normal size. I do not see evidence for cholangitis. Bilateral pleural effusions.
[2021-04-02] MEDS: METOPROLOL SUCCINATE (ER) 50 MG TAB.ER.24H PO SCH ×2 (20:43→22:18)
[2021-04-03] MEDS: BENZONATATE 100 MG CAP PO PRN (01:41)
[2021-04-03] MEDS: CEFEPIME 2 GM in SODIUM CHLORIDE 0.9% 100 ML IVPB SCH ×3 (04:09→20:11)
[2021-04-03] MEDS ORDERED: diphenhydrAMINE 50 MG/ML 1 ML VIAL IVP STA (04:09)
[2021-04-03] MEDS: metroNIDAZOLE-NS PMX 500 MG in SALINE 1 100ML.BAG IVPB SCH (04:09)
[2021-04-03] MEDS: diazePAM 5 MG TAB PO PRN ×2 (06:01→20:12)
[2021-04-03] MEDS: PANTOPRAZOLE 40 MG TABLET PO SCH ×2 (06:01→16:23)
[2021-04-03] MEDS: THIAMINE 100 MG TAB PO SCH ×2 (06:01→16:21)
[2021-04-03 08:08] LABS: African American GFR (CKD) >90 (>60 ml/min/1.73 sqM); Anion Gap 11 mmol/L; Blood Urea Nitrogen 18 mg/dL (9-20); Calcium 9.2 mg/dL (8.4-10.2); Carbon Dioxide 26 mmol/L (22-30); Chloride 101 mmol/L (98-107); Glucose 123 mg/dL (74-99); Non-African American GFR(CKD) 89 (>60 ml/min/1.73 sqM); Potassium 4.1 mmol/L (3.5-5.1); Sodium 138 mmol/L (137-145)
[2021-04-03 08:17] LABS: HCT 40.5 % (39.0-53.0); MCH 32.3 pg (25.0-35.0); MCHC 32.2 g/dL (31.0-37.0); MCV 100.3 fL (80.0-100.0); Mean Platelet Volume 7.4; Platelet Count 448 k/uL (150-450); RBC 4.04 m/uL (4.30-5.90); RDW 12.7 % (11.5-15.5); WBC 11.7 k/uL (3.8-10.6)
[2021-04-03] MEDS: IPRATROPIUM-ALBUTEROL 3 ML NEB INHALATION PRN (08:22)
[2021-04-03 08:32] LABS: ALT 97 U/L (4-49); AST 70 U/L (17-59); Albumin 3.4 g/dL (3.5-5.0); Alkaline Phosphatase 192 U/L (38-126); Total Bilirubin 1.7 mg/dL (0.2-1.3); Total Protein 6.4 g/dL (6.3-8.2)
[2021-04-03] MEDS ORDERED: SODIUM CHLORIDE 0.65% NASAL SPRAY 44 ML BTL NASAL PRN (08:42)
[2021-04-03] MEDS: ASPIRIN 81 MG PO SCH (08:58)
[2021-04-03] MEDS: lisinopriL 5 MG TAB PO SCH (08:59)
[2021-04-03] MEDS: METOPROLOL SUCCINATE (ER) 50 MG TAB.ER.24H PO SCH ×2 (09:00→20:12)
[2021-04-03] MEDS: TICAGRELOR 90 MG TAB PO SCH ×2 (09:00→20:12)
[2021-04-03] MEDS: MULTIVITAMINS, THERA 1 EACH TAB PO SCH (09:00)
[2021-04-03] MEDS: FUROSEMIDE 40 MG TAB PO SCH ×2 (09:00→16:23)
[2021-04-03] MEDS ORDERED: FUROSEMIDE 10 MG/ML 4 ML VIAL IV STA (09:15)
--- NOTE | 2021-04-03 09:48 | P.PN ---
Subjective Progress Note Date: 04/03/21 Principal diagnosis: Acute non-ST elevated myocardial infarction This is a 70-year-old white male, known history of hypertension, no previous history of documented coronary artery disease, patient presented to the ER with chest pain. His symptoms have been progressively worse over the last couple of days, and the day he was admitted the patient had severe chest pain across his chest. It was 10 out of 10 in severity. Radiating to the left arm. But not associated with any nausea vomiting or palpitations. Patient was also complaining of some shortness of breath. Patient is maintained normally on lisinopril and nifedipine at home for his hypertension. In the ER, his EKG showed nonspecific ST segment depression that resolved after sublingual nitroglycerin. Troponin was elevated. Patient was seen by cardiology on consultation, and he underwent cardiac catheterization and successful PCI of the mid circumflex with an overlapping 2.518 mm, 2.515 mm xience, and more distal 2.012 mm konstantin drug eluting stent. Patient was transferred to the ICU after his cardiac catheterization, and his chest x-ray showed evidence of mild interstitial edema. We were asked to see him on consultation. Patient is in no distress, he is on 5 L nasal cannula with O2 sat showed 91%. His IV fluids at KVO. Received Lasix last night. Patient was on BiPAP last night with IPAP of 1 4 EPAP of 740% FiO2. Patient is a chronic drinker he drinks on the average of 4-6 beers per day on a daily basis. He is on Valium at 10 mg by mouth twice a day for a long time because of generalized anxiety. Patient is now on the drill into and on aspirin. Chest x-ray again showed very minimal CHF yesterday. Chest x-ray this morning is showing slight improvement of aeration of bilateral lungs with mild persistent pulmonary vascular congestion and interstitial edema Patient was reevaluated today on 03/27/2021, patient remains in the ICU, little anxious, remains on 3 L nasal cannula with O2 sat showed 92%. Chest x-ray continues to show evidence of interstitial edema hence the Lasix dose was increased today to 40 mg IV push twice a day. Patient was seen by cardiology, his ejection fraction is 60-65%, however the patient seems to have significant mitral regurgitation based on physical examination. And I'm wondering if the patient gets into pulmonary edema mostly because of his mitral valve. May require JIL for further evaluation of the mitral valve. This will be decided upon by cardiology. In the meantime I have increased his Lasix. Patient remains on multiple cardiac meds including brilinta. Remains on beta blockers. And on lisinopril. Lasix was increased today. He is 14.9 hemoglobin is 13.6 electrolytes are normal renal profile is normal potassium is a bit low being corrected as per protocol. Reevaluated today on 03/28/2021, patient remains in the ICU, he is being treated for non-ST elevation myocardial infarction and pulmonary edema. Remains on 10 L high flow cannula with O2 sat showed 97%, oxygen is being titrated down. Chest x-ray showed worsening pulmonary edema today, hence I have increased the Lasix to 40 mg IV push every 8 hours. And I have also discussed with the flake drier Dr. Teresa to consider JIL on this patient to evaluate his mitral valve. I believe the patient is having intermittent episodes of flash pulmonary edema. And he does have a loud mitral regurgitation murmur. This could be ischemic in nature. At any rate patient is being considered for JIL. In the meantime considering worsening chest x-ray, I'm recommending that he stays in the ICU. Patient is having intermittent episodes of diarrhea, C. difficile screening is p ending. In the meantime we are treating him with Lomotil. Patient has not been on any antibiotics. Patient continues to have intermittent episodes of agitation, tachycardia, diaphoresis, and I believe the patient has more history of alcohol intake then he told us., Remains on CIWA protocol. Reevaluated today on 03/29/2021, patient remains in the ICU, refused to have transesophageal echocardiogram yesterday. Patient is feeling better, breathing easier, chest x-ray continues to show evidence of pulmonary edema, patient had a -1 L in fluid balance over the last 24 hours. Remains on diuretics. Patient remains on the ciwa protocol for alcoholism. And today I plan to transfer the patient out of the ICU to a cardiac floor. WBC count is 14.3 hemoglobin 13.5 lites are normal BUN is 27 creatinine 0.96. Pro-calcitonin is 0.49, hence I will empirically start antibiotics. Although the findings on the chest x-ray are both consistent with pulmonary edema than pneumonia. However Rocephin will be started empirically. Reevaluated today on 03/30/2021, patient remains on 4 L nasal cannula, and his O2 sats is 97%, patient is ALLERGIC to go home, he would like to go and see his flake drier in [place], from my perspective a gastric the patient could be switched to oral antibiotics, maintained on diuretics, and if cleared by cardiology , I will clear the patient for discharge. Patient may need home O2 and this could be arranged for if the patient qualifies. In the meantime I would recommend that we continue oral antibiotics, for at least 7 more days, and have follow-up chest x-ray in the next 2 weeks. Reevaluated today on 03/31/2021, patient remains on the cardiac floor, had a bit of shortness of breath earlier today, I was notified about the patient by his nurse, however when I examined the patient this morning he seems to be in no distress. Remains on 4 L nasal cannula with O2 sat from 94%, patient requested cutting down his FiO2 because it is making his nose extremely dry. Patient received more Lasix today, chest x-ray continues to show evidence of bilateral upper lobe infiltrates, possibility of pulmonary edema is a very likely, as a matter of fact I feel it is more likely than pneumonia. Remains empirically on antibiotics, remains on Lasix. WBC count today is 9.5 hemoglobin is 11.8. Left lites are normal renal profile is normal. His pro-calcitonin was borderline elevated hence I recommended antibiotics for presumptive pneumonia involving the right upper lobe and left upper lobe. Clinically again this is felt to be less likely On 04/01/2021 patient seen in follow-up on selective care unit, he is awake and alert, in no acute distress, he is resting comfortably in bed, he is convinced liters of oxygen and pulse ox of 93%, to be breathing comfortably, no dyspnea noted at rest. Complaints of chest pain, he is afebrile, vital signs have been stable. No cough, no congestion, he remains on a combination of azithromycin and Rocephin for possibility of pneumonia. He also remains on diuretics currently on Lasix 40 mg IV every 12 hours. His weight is down by 1.8 kg in the last 24 hours, no lower extremity edema, overall he seems to be breathing much better. Discharge planning is in progress possibly patient will need oxygen. On 04/02/2021 patient seen in follow-up. Patient is currently on BiPAP with pressures of 10 and 5 and FiO2 of 30%. There is a environmental health and safety leader at the bedside. Apparently patient got very confused this morning, he took off his BiPAP mask, he was extremely short of breath, and he tried to ambulate to the bathroom by himself. He was assisted back to bed, he was placed on BiPAP support, pulse ox is 98%. His chest x-ray today shows upper lobe predominant patchy airspace disease, with slight improvement. He remains on azithromycin and cefepime for possibility of pneumonia, he is on the daily dose of Lasix, he did receive IV Lasix 20 mg last night. His statins have been placed on hold in view of elevated liver enzymes. Response team was called to the bedside last night sent of increasing confusion, and patient was apparently becoming combative. Trying to take his clothes off and Pulmicort off the monitors. he was started on Seroquel 25 mg daily. His liver ultrasound was completed today showing liver within normal limits, gallbladder was not visualized, this was a difficult exam as the patient was that of an refusing exam shelter through the scan. Today's labs have been reviewed. In addition patient was started on Valium for possibility of acute EtOH withdrawal. Ammonia level was less than 9, AST was 111, ALT is 126, and alkaline phosphatase was 217. Lipase was 374. On 04/04/2021 patient seen in follow-up. Patient is resting comfortably in bed, currently on 2 L of oxygen pulse ox is 89-94%, no BiPAP support overnight. He seems to be comfortable, less short of breath compared to yesterday's exam, he is less agitated, his family members at the bedside. Patient is afebrile. No complaints of chest pain. CT of the abdomen and pelvis without contrast was obtained yesterday showing colonic diverticulosis without diverticulitis, no dilated ducts, gallbladder was within normal limits, and there was no evidence for cholangitis. It did show bilateral pleural effusions. She continues on oral Lasix, he did receive a dose of IV Lasix this morning. Remains on Flagyl and cefepime, remains on Seroquel, and Ativan for possibility of alcohol withdrawal, and delirium. These labs have been reviewed, white blood cell count is 11.7, hemoglobin is 13, electrolytes and renal profile were within normal limits, as proBNP is improving and is down to 1150, his liver enzymes are improving on today's labs. His Lipitor remains on hold, his lipase is 374. Only occasional cough, no significant phlegm production, he remains on combination of antibiotics currently with cefepime and Flagyl. Patient had already received several days of azithromycin and Rocephin. Objective - Vital Signs Vital signs: Vital Signs Temp 98.1 F 04/03/21 08:55 Pulse 99 04/03/21 08:55 Resp 22 04/03/21 08:55 BP 120/73 04/03/21 08:55 Pulse Ox 94 L 04/03/21 08:55 Intake & Output 04/02/21 04/03/21 04/03/21 18:59 06:59 18:59 Intake Total 300 Output Total 350 100 Balance -350 -100 300 Weight 70 kg Intake: Oral 300 Output: Urine 350 100 Other: # Voids 1 1 - Exam GENERAL EXAM: Alert, confused, but calm on today's exam 70-year-old white male, her saturations of oxygen pulse ox of 96% HEAD: Normocephalic/atraumatic. EYES: Normal reaction of pupils, equal size. Conjunctiva pink, sclera white. NOSE: Clear with pink turbinates. THROAT: No erythema or exudates. NECK: No masses, no JVD, no thyroid enlargement, no adenopathy. CHEST: No chest wall deformity. Symmetrical expansion. LUNGS: Equal air entry with no crackles, wheeze, rhonchi or dullness. CVS: Regular rate and rhythm, normal S1 and S2, no gallops, no murmurs, no rubs ABDOMEN: Soft, nontender. No hepatosplenomegaly, normal bowel sounds, no guarding or rigidity. EXTREMITIES: No clubbing, no edema, no cyanosis, 2+ pulses and upper and lower extremities. MUSCULOSKELETAL: Muscle strength and tone normal. SPINE: No scoliosis or deformity SKIN: No rashes CENTRAL NERVOUS SYSTEM: Alert and oriented -2. No focal deficits, tone is normal in all 4 extremities. PSYCHIATRIC: Alert and oriented -2. Confused, combative and agitated at times - Labs CBC & Chem 7: 04/03/21 06:54 04/03/21 06:54 Labs: Abnormal Lab Results - Last 24 Hours (Table) 04/03/21 04/03/21 Range/Units 06:54 06:54 WBC 11.7 H (3.8-10.6) k/uL RBC 4.04 L (4.30-5.90) m/uL MCV 100.3 H (80.0-100.0) fL Glucose 123 H (74-99) mg/dL Total Bilirubin 1.7 H (0.2-1.3) mg/dL AST 70 H (17-59) U/L ALT 97 H (4-49) U/L Alkaline Phosphatase 192 H (38-126) U/L Albumin 3.4 L (3.5-5.0) g/dL Microbiology - Last 24 Hours (Table) 04/02/21 05:18 Blood Culture - Preliminary Blood No Growth after 24 hours Assessment and Plan Plan: Assessment: #1. Acute non-ST elevated myocardial infarction, status post cardiac catheterization and PCI #2. Acute diastolic congestive heart failure #3. Mitral valve disease with significant mitral valve regurgitation #4. Acute hypoxic respiratory failure secondary to CHF and possibility of pneumonia #5. Benign essential hypertension #6. History of alcoholism #7. Generalized anxiety disorder #8. Lifelong nonsmoker #9. Altered mental status, related to acute metabolic encephalopathy, multifactorial, related to acute hypoxic respiratory failure, acute EtOH withdrawal, and possibly secondary to pneumonia Plan: Continue current antibiotics Continue oral diuretics Follow-up chest x-ray tomorrow Obtain pro-calcitonin level Maintain safety precautions respiratory therapy assistant at the bedside Appears to be less confused and combative today BiPAP support as needed I performed a history & physical examination of the patient and discussed their management with my nurse practitioner, Kaye Higgins. I reviewed the nurse practitioner's note and agree with the documented findings and plan of care. Lung sounds are positive for diffuse wheezes throughout the lung ja[place]. The findings and the impression was discussed with the patient. I attest to the documentation by the nurse practitioner. Time with Patient: Less than 30
--- NOTE | 2021-04-03 11:38 | P.PN ---
Subjective This is a 70-year-old male with history of hypertension. He does not follow with a editor dictionary. He is visiting his brother, he is from [place]. He presented emergency department on 03/25/2021 with complaints of chest pain. EKG on admission revealed sinus rhythm with ST depressions. He underwent cardiac catheterization with Dr. Tam on 03/25 which revealed 30-40% heavily calcified left main, diffuse LAD calcification, 40-50% ostial LAD, mid diffuse 60% LAD stenosis, diffuse circumflex 50-60% stenosis and more focal 95% stenosis with extensive [id number] collaterals with the [employer] FOIL CUTTER. Patient underwent PCI x 3 of mid circumflex by Dr. Majano. Patient also had some respiratory insufficiency with LVEDP noted to be elevated, IV lasix was given, patient was placed on BIPAP with improvement. 03/26- Echocardiogram revealed EF of 60-65%, RV is mildly enlarged, mild aortic valve sclerosis, mild mitral regurgitation, mild prolapse of the posterior mitral valve leaflet, mild tricuspid regurgitation, moderate pulmonary hypertension with an RVSP 49 mmHg. 04/03/2021: Patient seen and examined at bedside. He is more alert this morning he is oriented x 3. He is currently getting breathing treatments. He denies chest pain, shortness of breath, palpitations, dizziness, lightheadedness. Telemetry reviewed, patient is in sinus mechansim HR 50-low 100s. occasionally bradycardic overnight high 40s. Patient currently maintained on aspirin 81 mg daily, Lasix PO 40mg BID, Brilinta 90 mg twice a day, lisinopril 5mg daily,metoprolol succinate 50mg BID. Laboratory data reviewed, renal function and electrolytes within normal limits, LFTs ant Tbili downtrending, ProBNP 1150 (1890 previously on 03/29). CT abdomen and pelvis revealed some colonic diverticulosis without diverticulitis. No evidence of cholangitis. Bilateral pleural effusions. GENERAL: In no acute distress. NECK: Supple, no JVD LUNGS: Breath sounds diminished to auscultation bilaterally. Respiration equal and unlabored. HEART: Regular rate and rhythm, Systolic murmur heard at right sternal border and at apex, S1 and S2 heard. EXTREMITIES: Normal range of motion. No edema. No clubbing or cyanosis. Peripheral pulses intact. SKIN: Right femoral cath site clean dry intact, no hematoma, 2+ peripheral pulses NEURO: Alert and oriented to person and place and time. ASSESSMENT: NSTEMI s/p PCI circumflex on 03/25/2021 Acute encephalopathy Elevated liver enzymes - downtrending History of hypertension Dyslipidemia Elevated LVEDP Acute hypoxic respiratory failure requiring BiPAP post left heart catheterization Pulmonary Hypertension Pneumonia Mitral Regurgitation Hypokalemia ETOH abuse PLAN: Obtain limited echocardiogram to evaluate patient's mitral valve Continue lisinopril to 5mg daily and Metoprolol succinate 50mg BID Patient continues to emphasize he does not want to proceed with JIL at this time. Continue dual antiplatelet therapy with aspirin and Brilinta Statin held due to elevated liver enzymes, if patient's LFTs are stable tomorrow consider restarting patient's statin Continue to monitor renal function and electrolytes Further recommendations pending clinical course Objective - Vital Signs Vital signs: Vital Signs Temp 98.1 F 04/03/21 08:55 Pulse 99 04/03/21 08:55 Resp 22 04/03/21 08:55 BP 120/73 04/03/21 08:55 Pulse Ox 94 L 04/03/21 08:55 Intake & Output 04/02/21 04/03/21 04/03/21 18:59 06:59 18:59 Intake Total 300 Output Total 350 100 Balance -350 -100 300 Weight 70 kg Intake: Oral 300 Output: Urine 350 100 Other: Voiding Method Urinal # Voids 1 1 - Labs CBC & Chem 7: 04/03/21 06:54 04/03/21 06:54 Labs: Abnormal Lab Results - Last 24 Hours (Table) 04/03/21 04/03/21 Range/Units 06:54 06:54 WBC 11.7 H (3.8-10.6) k/uL RBC 4.04 L (4.30-5.90) m/uL MCV 100.3 H (80.0-100.0) fL Glucose 123 H (74-99) mg/dL Total Bilirubin 1.7 H (0.2-1.3) mg/dL AST 70 H (17-59) U/L ALT 97 H (4-49) U/L Alkaline Phosphatase 192 H (38-126) U/L Albumin 3.4 L (3.5-5.0) g/dL Microbiology - Last 24 Hours (Table) 04/02/21 05:18 Blood Culture - Preliminary Blood No Growth after 24 hours
--- NOTE | 2021-04-03 15:59 | P.PN ---
Subjective Progress Note Date: 04/03/21 (Delayed charting seen and 0945) Principal diagnosis: chest pain Patient is a 70-year-old male with a history of pneumonia, hypertension, and marijuana use who presented to the emergency room with complaints of chest pain. He ultimately was found have a non-ST segment elevated myocardial infarction and he underwent cardiac cath with successful PCI of the mid circumflex. He was done Pulmonary edema was subsequently started on Lasix. He developed significant respiratory distress postcatheterization requiring BiPAP therapy. He also developed some hypotension. Pulmonology was consulted. He underwent an echocardiogram which showed preserved ejection fraction but did demonstrate some mitral valve disease, which appeared to be significant on clinical examination. Patient did not want to undergo a JIL in [place] and has deferred this to [place] where he lives. By 03/28 he was able to be decreased a high flow nasal cannula. Patient seen and examined at bedside. He has no respiratory back to [place]. He is still feeling quite winded and dyspneic. He is having some issues walking to the bathroom. He denies any overt chest pain, no nausea or vomiting. We had a long discussion about how to get him to return to [place]. He is aware that he will need a JIL when he goes there to further assess his mitral valve that he does not want this done at this time. He had slow improvement in his oxygen requirements. He was ding well the morning of 04/01 and was able to come off oxygen. The afternoon he developed some nausea. He was started on tums and protonix increased. He then developed worsening confusion and hypoxia overnight on blood work showed elevated liver enzymes and increasing leukocytosis. He was started on cefepime and Flagyl for possible acute cholangitis. Liver ultrasound was obtained which showed some fatty infiltration of the liver but they were unable to visualize the gallbladder as he was noncooperative. Follow-up CT abdomen and pelvis showed normal-sized gallbladder with bilateral pleural effusions. He did have some increasing oxygen requirement. His mentation began slowly improving. Patient seen and examined at bedside. He reports that he is struggling if he is having pain all over. He again asked for changes in his pain medication regimen and have again a different story of how he takes these meds. I explained to him and family present at bedside that we have verified his dosing with his patient prescription this 5 mg 3 times daily. I will not be increasing this due to his recent confusion. I also had a danis discussion that he should not be maintained on oxycodone 5 mg 3 times daily for simple osteoarthritis. Is also a dangerous medication when used with Valium 10 mg. I strongly suggest that they discuss with his outpatient physician on return to for the coming off of these medications or supplementing them with a safer medication profile. He again reports that he wants to go back to [place] as soon as possible. He reports that he is more dyspneic today. I discussed that we will give him an extra dose of IV Lasix, increase his oral Lasix, and attempted discharge him when he is off of oxygen. General: non toxic, no distress, appears at stated age Derm: warm, dry Head: atraumatic, normocephalic, symmetric Eyes: EOMI, no lid lag, anicteric sclera Mouth: no lip lesion, mucus membranes dry Cardiovascular: S1S2 reg, with grade 3 diastolic murmur, positive posterior tibial pulse bilateral, Lungs: Rhonchi bilateral, no accessory muscle use, 3 word conversational dyspnea Abdominal: soft, nontender to palpation, no guarding, no appreciable organomegaly Ext: no gross muscle atrophy, trace edema, no contractures Neuro: CN II-XI grossly intact, no focal neuro deficits Psych: Alert, oriented but anxious, still with some slowed thinking Assessment: Elevated liver enzymes, suspect hepatic congestion as CT does not show any gallbladder dysfunction, repeat liver enzymes in a.m. discontinue Flagyl as cholangitis have been ruled out. Acute encephalopathy, improving - likely due to ETOH withdrawal vs due to infection - encourage orientation - supportive care - [facility] Non-ST segment elevated myocardial infarction status post PCI to the left circumflex Triple-vessel coronary artery disease, patient is not interested in pursuing CABG evaluation at this time Essential hypertension Dyslipidemia Mitral valve disease wiht prolapse -Continue with aspirin, Brillenta, Lipitor -Patient is aware that he will need quick follow-up with his primary care physician and establish with a bi data architect on return to [place]. He was reminded of the importance of following up on his mitral valve disease. Acute diastolic congestive heart failure with ejection fraction 60-65%-IV Lasix 1 and increase oral Lasix to twice daily, Continue with lisinopril and metoprolol Probable community-acquired pneumonia-Covid testing was negative Acute hypoxic respiratory failure- treatment of PNA and diuresis EtOH misuse- [facility] protocol Pharangitis - Likely discharge in AM to home if off oxygen and mentation is better, will be driving to [place], will need all RX filled prior to leaving and will need quick follow-up. Objective - Vital Signs Vital signs: Vital Signs Temp 97.9 F 04/03/21 11:25 Pulse 74 04/03/21 14:54 Resp 20 04/03/21 11:25 BP 124/63 04/03/21 11:25 Pulse Ox 85 L 04/03/21 14:54 Intake & Output 04/02/21 04/03/21 04/03/21 18:59 06:59 18:59 Intake Total 300 Output Total 350 100 Balance -350 -100 300 Weight 70 kg Intake: Oral 300 Output: Urine 350 100 Other: Voiding Method Urinal # Voids 1 1 - Labs CBC & Chem 7: 04/03/21 06:54 04/03/21 06:54 Labs: Abnormal Lab Results - Last 24 Hours (Table) 04/03/21 04/03/21 Range/Units 06:54 06:54 WBC 11.7 H (3.8-10.6) k/uL RBC 4.04 L (4.30-5.90) m/uL MCV 100.3 H (80.0-100.0) fL Glucose 123 H (74-99) mg/dL Total Bilirubin 1.7 H (0.2-1.3) mg/dL AST 70 H (17-59) U/L ALT 97 H (4-49) U/L Alkaline Phosphatase 192 H (38-126) U/L Albumin 3.4 L (3.5-5.0) g/dL Microbiology - Last 24 Hours (Table) 04/02/21 05:18 Blood Culture - Preliminary Blood No Growth after 24 hours
[2021-04-03] MEDS ORDERED: metroNIDAZOLE 500 MG TAB PO SCH (16:00)
--- NOTE | 2021-04-03 18:05 | ECHOF ---
Referral Reason:Look at patient's mitral regurgitation MEASUREMENTS -------- HEIGHT: 175.3 cm WEIGHT: 69.9 kg BP: FINDINGS -------- Pt had Echo 04/04/21 with mild M.R. Limited echo to re-access MV. [id number] mitral regurgitation is present. Moderate prolapse of the posterior mitral valve leaflet. CONCLUSIONS -------- 1. Pt had Echo 04/04/21 with mild M.R. Limited echo to re-access MV. 2. Koneramm-[id number] mitral regurgitation is present. 3. Moderate prolapse of the posterior mitral valve leaflet. SUPERVISOR METAL FURNITURE ASSEMBLY: Kita Wood RDCS
[2021-04-03 21:25] VITALS: RESP 20
[2021-04-04] MEDS: CEFEPIME 2 GM in SODIUM CHLORIDE 0.9% 100 ML IVPB SCH (03:48)
[2021-04-04] MEDS: diazePAM 5 MG TAB PO PRN ×2 (03:48→12:46)
[2021-04-04] MEDS: PANTOPRAZOLE 40 MG TABLET PO SCH (06:17)
[2021-04-04] MEDS: THIAMINE 100 MG TAB PO SCH (06:17)
[2021-04-04 06:46] LABS: HCT 40.9 % (39.0-53.0); HGB 12.8 gm/dL (13.0-17.5); MCH 31.2 pg (25.0-35.0); MCHC 31.3 g/dL (31.0-37.0); MCV 99.6 fL (80.0-100.0); Mean Platelet Volume 8.2; Platelet Count 495 k/uL (150-450); RDW 12.7 % (11.5-15.5); WBC 12.7 k/uL (3.8-10.6)
[2021-04-04 07:01] LABS: ALT 68 U/L (4-49); AST 55 U/L (17-59); African American GFR (CKD) >90 (>60 ml/min/1.73 sqM); Albumin 3.4 g/dL (3.5-5.0); Alkaline Phosphatase 150 U/L (38-126); Anion Gap 12 mmol/L; Blood Urea Nitrogen 21 mg/dL (9-20); Calcium 9.1 mg/dL (8.4-10.2); Carbon Dioxide 23 mmol/L (22-30); Chloride 99 mmol/L (98-107); Glucose 123 mg/dL (74-99); Magnesium 1.9 mg/dL (1.6-2.3); Non-African American GFR(CKD) >90 (>60 ml/min/1.73 sqM); Potassium 3.6 mmol/L (3.5-5.1); Sodium 134 mmol/L (137-145); Total Bilirubin 1.5 mg/dL (0.2-1.3); Total Protein 6.5 g/dL (6.3-8.2)
[2021-04-04] MEDS: ASPIRIN 81 MG PO SCH (09:00)
[2021-04-04] MEDS: MULTIVITAMINS, THERA 1 EACH TAB PO SCH (09:00)
[2021-04-04] MEDS: lisinopriL 5 MG TAB PO SCH (09:00)
[2021-04-04] MEDS: TICAGRELOR 90 MG TAB PO SCH (09:00)
[2021-04-04] MEDS: FUROSEMIDE 40 MG TAB PO SCH (09:00)
[2021-04-04] MEDS: METOPROLOL SUCCINATE (ER) 50 MG TAB.ER.24H PO SCH (09:00)
[2021-04-04] MEDS ORDERED: FUROSEMIDE 10 MG/ML 4 ML VIAL IV STA (10:53)
--- NOTE | 2021-04-04 10:53 | P.PN ---
Subjective Progress Note Date: 04/04/21 Principal diagnosis: Acute non-ST segment elevation myocardial infarction This is a 70-year-old white male, known history of hypertension, no previous history of documented coronary artery disease, patient presented to the ER with chest pain. His symptoms have been progressively worse over the last couple of days, and the day he was admitted the patient had severe chest pain across his chest. It was 10 out of 10 in severity. Radiating to the left arm. But not associated with any nausea vomiting or palpitations. Patient was also complaining of some shortness of breath. Patient is maintained normally on lisinopril and nifedipine at home for his hypertension. In the ER, his EKG showed nonspecific ST segment depression that resolved after sublingual nitroglycerin. Troponin was elevated. Patient was seen by cardiology on consultation, and he underwent cardiac catheterization and successful PCI of the mid circumflex with an overlapping 2.518 mm, 2.515 mm xience, and more distal 2.012 mm konstantin drug eluting stent. Patient was transferred to the ICU after his cardiac catheterization, and his chest x-ray showed evidence of mild interstitial edema. We were asked to see him on consultation. Patient is in no distress, he is on 5 L nasal cannula with O2 sat showed 91%. His IV fluids at KVO. Received Lasix last night. Patient was on BiPAP last night with IPAP of 14 EPAP of 740% FiO2. Patient is a chronic drinker he drinks on the average of 4-6 beers per day on a daily basis. He is on Valium at 10 mg by mouth twice a day for a long time because of generalized anxiety. Patient is now on the drill into and on aspirin. Chest x-ray again showed very minimal CHF yesterday. Chest x-ray this morning is showing slight improvement of aeration of bilateral lungs with mild persistent pulmonary vascular congestion and interstitial edema Patient was reevaluated today on 03/27/2021, patient remains in the ICU, little anxious, remains on 3 L nasal cannula with O2 sat showed 92%. Chest x-ray continues to show evidence of interstitial edema hence the Lasix dose was increased today to 40 mg IV push twice a day. Patient was seen by cardiology, his ejection fraction is 60-65%, however the patient seems to have significant mitral regurgitation based on physical examination. And I'm wondering if the patient gets into pulmonary edema mostly because of his mitral valve. May require JIL for further evaluation of the mitral valve. This will be decided upon by cardiology. In the meantime I have increased his Lasix. Patient remains on multiple cardiac meds including brilinta. Remains on beta blockers. And on lisinopril. Lasix was increased today. He is 14.9 hemoglobin is 13.6 electrolytes are normal renal profile is normal potassium is a bit low being corrected as per protocol. Reevaluated today on 03/28/2021, patient remains in the ICU, he is being treated for non-ST elevation myocardial infarction and pulmonary edema. Remains on 10 L high flow cannula with O2 sat showed 97%, oxygen is being titrated down. Chest x-ray showed worsening pulmonary edema today, hence I have increased the Lasix to 40 mg IV push every 8 hours. And I have also discussed with the stock receiver Dr. Teresa to consider JIL on this patient to evaluate his mitral valve. I believe the patient is having intermittent episodes of flash pulmonary edema. And he does have a loud mitral regurgitation murmur. This could be ischemic in nature. At any rate patient is being considered for JIL. In the meantime considering worsening chest x-ray, I'm recommending that he stays in the ICU. Patient is having intermittent episodes of diarrhea, C. difficile screening is pending. In the meantime we are treating him with Lomotil. Patient has not been on any antibiotics. Patient continues to have intermittent episodes of agitation, tachycardia, diaphoresis, and I believe the patient has more history of alcohol intake then he told us., Remains on CIWA protocol. Reevaluated today on 03/29/2021, patient remains in the ICU, refused to have transesophageal echocardiogram yesterday. Patient is feeling better, breathing easier, chest x-ray continues to show evidence of pulmonary edema, patient had a -1 L in fluid balance over the last 24 hours. Remains on diuretics. Patient remains on the ciwa protocol for alcoholism. And today I plan to transfer the patient out of the ICU to a cardiac floor. WBC count is 14.3 hemoglobin 13.5 lites are normal BUN is 27 creatinine 0.96. Pro-calcitonin is 0.49, hence I will empirically start antibiotics. Although the findings on the chest x-ray are both consistent with pulmonary edema than pneumonia. However Rocephin will be started empirically. Reevaluated today on 03/30/2021, patient remains on 4 L nasal cannula, and his O2 sats is 97%, patient is ALLERGIC to go home, he would like to go and see his car diologist in [place], from my perspective a gastric the patient could be switched to oral antibiotics, maintained on diuretics, and if cleared by cardiology , I will clear the patient for discharge. Patient may need home O2 and this could be arranged for if the patient qualifies. In the meantime I would recommend that we continue oral antibiotics, for at least 7 more days, and have follow-up chest x-ray in the next 2 weeks. Reevaluated today on 03/31/2021, patient remains on the cardiac floor, had a bit of shortness of breath earlier today, I was notified about the patient by his nurse, however when I examined the patient this morning he seems to be in no distress. Remains on 4 L nasal cannula with O2 sat from 94%, patient requested cutting down his FiO2 because it is making his nose extremely dry. Patient received more Lasix today, chest x-ray continues to show evidence of bilateral upper lobe infiltrates, possibility of pulmonary edema is a very likely, as a matter of fact I feel it is more likely than pneumonia. Remains empirically on antibiotics, remains on Lasix. WBC count today is 9.5 hemoglobin is 11.8. Left lites are normal renal profile is normal. His pro-calcitonin was borderline elevated hence I recommended antibiotics for presumptive pneumonia involving the right upper lobe and left upper lobe. Clinically again this is felt to be less likely On 04/01/2021 patient seen in follow-up on selective care unit, he is awake and alert, in no acute distress, he is resting comfortably in bed, he is convinced liters of oxygen and pulse ox of 93%, to be breathing comfortably, no dyspnea noted at rest. Complaints of chest pain, he is afebrile, vital signs have been stable. No cough, no congestion, he remains on a combination of azithromycin and Rocephin for possibility of pneumonia. He also remains on diuretics currently on Lasix 40 mg IV every 12 hours. His weight is down by 1.8 kg in the last 24 hours, no lower extremity edema, overall he seems to be breathing much better. Discharge planning is in progress possibly patient will need oxygen. On 04/02/2021 patient seen in follow-up. Patient is currently on BiPAP with pressures of 10 and 5 and FiO2 of 30%. There is a safety equipment tester at the bedside. Apparently patient got very confused this morning, he took off his BiPAP mask, he was extremely short of breath, and he tried to ambulate to the bathroom by himself. He was assisted back to bed, he was placed on BiPAP support, pulse ox is 98%. His chest x-ray today shows upper lobe predominant patchy airspace disease, with slight improvement. He remains on azithromycin and cefepime for possibility of pneumonia, he is on the daily dose of Lasix, he did receive IV Lasix 20 mg last night. His statins have been placed on hold in view of eleva edvin liver enzymes. Response team was called to the bedside last night sent of increasing confusion, and patient was apparently becoming combative. Trying to take his clothes off and Pulmicort off the monitors. he was started on Seroquel 25 mg daily. His liver ultrasound was completed today showing liver within normal limits, gallbladder was not visualized, this was a difficult exam as the patient was that of an refusing exam longterm through the scan. Today's labs have been reviewed. In addition patient was started on Valium for possibility of acute EtOH withdrawal. Ammonia level was less than 9, AST was 111, ALT is 126, and alkaline phosphatase was 217. Lipase was 374. On 04/04/2021 patient seen in follow-up. Patient is resting comfortably in bed, currently on 2 L of oxygen pulse ox is 89-94%, no BiPAP support overnight. He seems to be comfortable, less short of breath compared to yesterday's exam, he is less agitated, his family members at the bedside. Patient is afebrile. No complaints of chest pain. CT of the abdomen and pelvis without contrast was obtained yesterday showing colonic diverticulosis without diverticulitis, no dilated ducts, gallbladder was within normal limits, and there was no evidence for cholangitis. It did show bilateral pleural effusions. She continues on oral Lasix, he did receive a dose of IV Lasix this morning. Remains on Flagyl and cefepime, remains on Seroquel, and Ativan for possibility of alcohol withdrawal, and delirium. These labs have been reviewed, white blood cell count is 11.7, hemoglobin is 13, electrolytes and renal profile were within normal limits, as proBNP is improving and is down to 1150, his liver enzymes are i mproving on today's labs. His Lipitor remains on hold, his lipase is 374. Only occasional cough, no significant phlegm production, he remains on combination of antibiotics currently with cefepime and Flagyl. Patient had already received several days of azithromycin and Rocephin. The patient is seen today 04/04/2021 in follow-up on the selective care unit. He is currently sitting up in bed. Awake and alert in no acute distress. Maintaining O2 saturations in the 90s on room air. Follow-up echocardiogram reveals moderate to severe mitral regurgitation. Moderate prolapse of the posterior mitral valve leaflet. Blood cultures revealed no growth. White count 12.7. Hemoglobin 12.8. Sodium 134. Potassium 3.6. Creatinine 0.71. Glucose 123. Pro-calcitonin 0.10. ProBNP 1150. He remains on DuoNeb inhalations, cefepime, oral diuretics. Objective - Vital Signs Vital signs: Vital Signs Temp 98.0 F 04/04/21 03:55 Pulse 93 04/04/21 08:00 Resp 20 04/04/21 08:00 BP 115/66 04/04/21 03:55 Pulse Ox 93 L 04/04/21 06:16 Intake & Output 04/03/21 04/04/21 04/04/21 18:59 06:59 18:59 Intake Total 540 480 Output Total 1300 500 201 Balance -760 -500 279 Weight 69.3 kg Intake: Oral 540 480 Output: Urine 1300 500 200 Stool 1 Other: Voiding Method Urinal Toilet Toilet Urinal Urinal # Voids 600 - Exam GENERAL EXAM: Alert, confused, but cooperative 70-year-old male patient, room air saturations pulse ox of 93% HEAD: Normocephalic/atraumatic. EYES: Normal reaction of pupils, equal size. Conjunctiva pink, sclera white. NOSE: Clear with pink turbinates. THROAT: No erythema or exudates. NECK: No masses, no JVD, no thyroid enlargement, no adenopathy. CHEST: No chest wall deformity. Symmetrical expansion. LUNGS: Equal air entry with no crackles, wheeze, rhonchi or dullness. CVS: Regular rate and rhythm, normal S1 and S2, no gallops, no murmurs, no rubs ABDOMEN: Soft, nontender. No hepatosplenomegaly, normal bowel sounds, no guarding or rigidity. EXTREMITIES: No clubbing, no edema, no cyanosis, 2+ pulses and upper and lower extremities. MUSCULOSKELETAL: Muscle strength and tone normal. SPINE: No scoliosis or deformity SKIN: No rashes CENTRAL NERVOUS SYSTEM: Alert and oriented -2. No focal deficits, tone is normal in all 4 extremities. PSYCHIATRIC: Alert and oriented -2. Confused and agitated at times - Labs CBC & Chem 7: 04/04/21 05:59 04/04/21 05:59 Labs: Abnormal Lab Results - Last 24 Hours (Table) 04/03/21 04/04/21 04/04/21 Range/Units 06:54 05:59 05:59 WBC 12.7 H (3.8-10.6) k/uL RBC 4.10 L (4.30-5.90) m/uL Hgb 12.8 L (13.0-17.5) gm/dL Plt Count 495 H (150-450) k/uL Sodium 134 L (137-145) mmol/L BUN 21 H (9-20) mg/dL Glucose 123 H (74-99) mg/dL Total Bilirubin 1.5 H (0.2-1.3) mg/dL ALT 68 H (4-49) U/L Alkaline Phosphatase 150 H (38-126) U/L Albumin 3.4 L (3.5-5.0) g/dL Procalcitonin 0.10 H (0.02-0.09) ng/mL Microbiology - Last 24 Hours (Table) 04/02/21 05:18 Blood Culture - Preliminary Blood No Growth after 48 hours Assessment and Plan Assessment: 1 Acute non-ST elevated myocardial infarction, status post cardiac catheteriza tion and PCI 2 Acute diastolic congestive heart failure 3 Mitral valve disease with significant mitral valve regurgitation 4 Acute hypoxic respiratory failure secondary to CHF and possibility of pneumonia 5 Benign essential hypertension 6 History of alcoholism 7 Generalized anxiety disorder 8 Lifelong nonsmoker 9 Altered mental status, related to acute metabolic encephalopathy, mul tifactorial, related to acute hypoxic respiratory failure, acute EtOH withdrawal, and possibly secondary to pneumonia Plan: The patient was seen and evaluated by Dr. Balbuena Currently stable from the pulmonary standpoint We'll see the patient as needed I, the cosigning physician, performed a history & physical examination of the patient. Lungs sounds are clear. Maintaining good O2 saturations in the 90s on room air. I discussed the assessment and plan of care with my nurse Denise samuels. I attest to the above note as dictated by her.
--- NOTE | 2021-04-04 11:43 | PN ---
PROGRESS NOTE HISTORY: Mr. Guidry is a 70-year-old male who presented with acute myocardial infarction. Underwent cardiac catheterization by Dr. Tam and subsequent percutaneous revascularization on the [address] Majano. He underwent stenting of the left circumflex. He had difficulty breathing afterward. He is feeling better today. His breathing is better. He denies any chest pain. He denies any dizziness. He denies any palpitations. On examination, he had a finding consistent with significant mitral regurgitation. He had a repeat echocardiogram yesterday and revealed moderate prolapse of the posterior mitral valve leaflets with moderate severe mitral regurgitation. After discussion with the patient, he tells me that he has been told that he has a mitral valve issue for a long time and has elected to continue clinical observation. His left ventricular systolic function was preserved. MEDICATIONS: At this time include aspirin once a day, Lasix 40 mg twice a day, lisinopril 5 mg daily, metoprolol tartrate 50 mg twice a day, and Brilinta 90 mg twice a day. PHYSICAL EXAMINATION: Blood pressure 115/60 with a heart rate in 90s. LUNGS: Clear. HEART: Regular rhythm S1, S2. No S3 with a holosystolic murmur in the apex radiating to the axilla. No diastolic murmur, no rub. ABDOMEN: Soft nontender. EXTREMITIES: No edema. IMPRESSION: 1. Status post stenting of the left circumflex, stable. 2. Evidence of significant mitral regurgitation noted in the past with history of mitral valve prolapse. The patient elected in the past to continue clinical observation. 3. Liver congestion, improving. 4. Hypertension. RECOMMENDATIONS: From the cardiac standpoint, the patient is stable. I would expect he should be able to be discharged home soon and follow up as an outpatient. I have discussed with him the issue of the valve and he will discuss it further with his primary care physician in [place]. MMODL / IJN: [id number] /
[2021-04-04 13:27] VITALS: BP 106/61; PULSE 75; TEMP 97.7
--- NOTE | 2021-04-04 13:58 | P.DS ---
Providers Date of admission: 03/25/21 09:05 Expected date of discharge: 04/04/21 Attending physician: Omar Wheat Consults: 03/25/21 09:05 Consult Physician Urgent Consulting Provider: Holden Mendoza Consult Reason/Comments: Non-STEMI pulmonary edema Do you want consulting provider notified?: Already Contacted 03/25/21 13:06 Consult Physician Routine Consulting Provider: Holden Mendoza Consult Reason/Comments: Post Interventional patient Do you want consulting provider notified?: Already Contacted 03/25/21 13:16 Consult Physician Stat Consulting Provider: Abiodun Jensen Consult Reason/Comments: Pulm edema Do you want consulting provider notified?: Yes Primary care physician: Physician Nonstaff Hospital Course: 70-year-old male with past medical history significant for essential hypertension who presented to the emergency room with chest pain, 10 out of 10 in severity radiating to his left arm. It was not associated with nausea, dizziness, or palpitation. Patient said that he has been having shortness of breath with exertion over the last couple of days as well. No cardiac history in the past. He is a nonsmoker. Patient was evaluated in the ER and 12-lead EKG showed nonspecific ST segment depression that resolved after sublingual nitroglycerin. Troponin level was elevated and patient will be admitted to the hospital for further treatment of non-ST elevation myocardial infarction. He underwent cardiac cath with successful PCI of the mid circumflex. After that he had pulmonary edema was subsequently started on bipap and lasix. He also developed some hypotension. Pulmonology was consulted. He underwent an echocardiogram which showed preserved ejection fraction but did demonstrate some mitral valve disease, which appeared to be significant on clinical examination. Patient did not want to undergo a JIL in [place] and has deferred this to [place] where he lives. By 03/28 he was able to be decreased a high flow nasal cannula. On 04/01 he developed some nausea. He was started on tums and protonix was increased. He then developed worsening confusion and hypoxia overnight, labs showed elevated liver enzymes and increasing leukocytosis. He was started on cefepime and Flagyl for possible acute cholangitis. Liver ultrasound was obtained which showed some fatty infiltration of the liver but they were unable to visualize the gallbladder as he was noncooperative. Follow-up CT abdomen and pelvis showed no dilated ducts, gallbladder was within normal limits, and there was no evidence for cholangitis. After cholangitis and gallbladder disease were ruled out antibiotics were discontinued. O2 was gradually weaned to off on the day of discharge. Lasix dose was increased to 40 mg twice a day. Follow-up Echocardiogram did show moderate to severe mitral regurgitation. Patient will follow-up with his physicians in [place] to look into that. He will be discharged home in stable condition. Discharge diagnoses 1 Acute non-ST elevated myocardial infarction, status post cardiac catheterization and PCI 2 Acute diastolic congestive heart failure 3 Mitral valve disease with significant mitral valve regurgitation 4 Acute hypoxic respiratory failure secondary to CHF and possibility of pneumonia 5 Benign essential hypertension 6 History of alcoholism 7 Generalized anxiety disorder Plan - Discharge Summary New Discharge Prescriptions: New Furosemide [Lasix] 40 mg PO BID@0900,1600 30 Days #60 tab Nitroglycerin Sl Tabs [Nitrostat] 0.4 mg SUBLINGUAL Q5M PRN 30 Days #90 tab PRN Reason: Chest Pain Metoprolol Succinate (ER) [Toprol XL] 50 mg PO BID 30 Days #60 tab.er.24h Aspirin 81 mg PO DAILY 30 Days #30 chew Ticagrelor [Brilinta] 90 mg PO BID 30 Days #60 tab Atorvastatin [Lipitor] 40 mg PO DAILY 30 Days #30 tab Pantoprazole [Protonix] 40 mg PO AC-BID 30 Days #60 tablet. lisinopriL [Zestril] 5 mg PO DAILY 30 Days #30 tab Continue lisinopriL 40 mg PO DAILY Diazepam [Valium] 10 mg PO BID PRN PRN Reason: Anxiety Diazepam [Valium] 10 mg PO DAILY oxyCODONE HCL 2.5 mg PO QID Discontinued NIFEdipine XL [Procardia Xl] 60 mg PO DAILY Omeprazole 20 mg PO DAILY Discharge Medication List Diazepam [Valium] 10 mg PO BID PRN 03/25/21 [History] Diazepam [Valium] 10 mg PO DAILY 03/25/21 [History] lisinopriL 40 mg PO DAILY 03/25/21 [History] oxyCODONE HCL 2.5 mg PO QID 03/25/21 [History] Aspirin 81 mg PO DAILY 30 Days #30 chew 04/04/21 [Rx] Atorvastatin [Lipitor] 40 mg PO DAILY 30 Days #30 tab 04/04/21 [Rx] Furosemide [Lasix] 40 mg PO BID@0900,1600 30 Days #60 tab 04/04/21 [Rx] Metoprolol Succinate (ER) [Toprol XL] 50 mg PO BID 30 Days #60 tab.er.24h 04/04/21 [Rx] Nitroglycerin Sl Tabs [Nitrostat] 0.4 mg SUBLINGUAL Q5M PRN 30 Days #90 tab 04/04/21 [Rx] Pantoprazole [Protonix] 40 mg PO AC-BID 30 Days #60 tablet.dr 04/04/21 [Rx] Ticagrelor [Brilinta] 90 mg PO BID 30 Days #60 tab 04/04/21 [Rx] lisinopriL [Zestril] 5 mg PO DAILY 30 Days #30 tab 04/04/21 [Rx] Follow up Appointment(s)/Referral(s): Shaqtaff,Physician [Primary Care Provider] - 1-2 days Yvon Tam MD [STAFF PHYSICIAN] - 1 Week
[2021-04-05] MEDS ORDERED: ATORVASTATIN 40 MG TAB PO SCH (09:00)
== END 2021-04-04 15:44 | disposition home or self-care (01) | DRG 246 ==
LOC: EC 06:53 → 3SCARD 09:05 → 2SICU 12:53 → 3SCARD 03-29 16:34
PROVIDERS: ADMIT Internal Medicine; ATTEND Internal Medicine
PROC: B2111ZZ Fluoroscopy of Multiple Coronary Arteries using Low Osmolar Contrast (ICD-10-PCS; 2021-03-25)
PROC: 5A09357 Assistance with Respiratory Ventilation, Less than 24 Consecutive Hours, Continuous Positive Airway Pressure (ICD-10-PCS; 2021-03-25)
PROC: 027036Z Dilation of Coronary Artery, One Artery with Three Drug-eluting Intraluminal Devices, Percutaneous Approach (ICD-10-PCS; principal; 2021-03-25 11:01)
PROC: 4A023N7 Measurement of Cardiac Sampling and Pressure, Left Heart, Percutaneous Approach (ICD-10-PCS; 2021-03-25 11:01)
PROC: 5A0945A Assistance with Respiratory Ventilation, 24-96 Consecutive Hours, High Flow/Velocity Cannula (ICD-10-PCS; 2021-03-27)
DX: I21.4 Non-ST elevation (NSTEMI) myocardial infarction (principal); I50.33 Acute on chronic diastolic (congestive) heart failure; J96.01 Acute respiratory failure with hypoxia; J18.9 Pneumonia, unspecified organism; G93.41 Metabolic encephalopathy; F10.239 Alcohol dependence with withdrawal, unspecified; I25.10 Atherosclerotic heart disease of native coronary artery without angina pectoris; E78.00 Pure hypercholesterolemia, unspecified; I11.0 Hypertensive heart disease with heart failure; Z87.01 Personal history of pneumonia (recurrent); I27.20 Pulmonary hypertension, unspecified; Z20.822 Contact with and (suspected) exposure to COVID-19; E87.6 Hypokalemia; E78.5 Hyperlipidemia, unspecified; F41.1 Generalized anxiety disorder; K57.30 Diverticulosis of large intestine without perforation or abscess without bleeding; K76.1 Chronic passive congestion of liver; I34.0 Nonrheumatic mitral (valve) insufficiency; I95.9 Hypotension, unspecified; R11.0 Nausea; K76.0 Fatty (change of) liver, not elsewhere classified; Z79.02 Long term (current) use of antithrombotics/antiplatelets; Z79.82 Long term (current) use of aspirin; Z79.899 Other long term (current) drug therapy; I45.10 Unspecified right bundle-branch block
CPT/HCPCS: 36415; 36600; 71045; 71046; 74176; 76705; 80048; 80053; 80061; 82140; 82805; 83605; 83690; 83735; 83880; 84132; 84145; 84484; 85025; 85027; 85379; 85610; 85730; 87040; 87324; 87635; 93005; 93306; 93308; 93458; 94640; 94660; 94760; 96361; 96374; 99291